=== PATIENT | male | born 1935 | race Caucasian/White ===

== ENCOUNTER → 2016-03-06 | Outpatient (CLI) | payer OTHER ==
[~2016-03-06] MED LIST: ACIDCAP17 PO; ALBU0.086 INH; ALPR-138 PO; ALUM5LIQ PO; AMLO5TAB96 PO; CLOP75 PO; DUONSOL2; FERR324T4 PO; FOLI20CA PO; FURO1TAB93 PO; LEXA10TA PO; LORT7.5T3 PO; MECL25 PO; POTA-243 PO; PRIL40CA PO; SENN15TA2 PO; SIMV20TA OR; SITA100 PO; TAB-TAB PO; TAMS0.4C67 PO; THIA50CA PO
[2016-03-06 13:00] LABS: BLOOD GAS CARBOXYHEMOGLOBIN 1.8 % (0-4); BLOOD GAS HCO3 30 mmol/L (22-26); BLOOD GAS METHEMOGLOBIN 0.9 % (0-2); BLOOD GAS O2 HGB SATURATION 92 % (90-100); BLOOD GAS OXYGEN CONTENT 17.7 Vol % (12.0-20.0); BLOOD GAS PCO2 49 mmHg (38-42); BLOOD GAS PO2 78 mmHg (61-120); BLOOD GAS TOTAL HGB 13.6 G/DL (12.0-16.0); CRITICAL VALUE NO; DRAW SITE RT RADIAL; FIO2 21 %; NUMBER OF ARTERIAL PUNCTURES 1; STAT NO; TEMP CORR TO 98.6; ULNAR PULSE PRESENT
--- NOTE | 2016-03-12 09:44 | RSPPFT ---
DATE OF PROCEDURE: 03/06/16 COMMENTS: Spirometry shows FVC of 1.6 at 40% of predicted, FEV1 of 1.0 at 43%, FEV1/FVC ratio is decreased. Flow is decreased at FEF 25, FEF 50, FEF 75, FEF 25-75. There is a mild response after acutely inhaled bronchodilator treatment. Lung volumes show residual volume is normal. TLC is decreased. Diffusion capacity is normal. Flow volume loop indicates an obstructive pattern. Room air arterial blood gases show pH of 7.40, PCO2 of 49, PO2 of 78, BiCarb of 30 and O2 Saturation at 92%. IMPRESSION: 1. Moderately severe obstructive lung disease. 2. Additional mild restrictive lung disease. 3. No response after bronchodilator treatment. 4. Lung volumes are decreased. 5. Diffusion capacity is decreased. 6. Room air arterial blood gases show normal oxygenation.
== END ==
LOC: HRSP 12:09
PROVIDERS: ATTEND Specialist
DX: J44.9 Chronic obstructive pulmonary disease, unspecified (principal)
CPT/HCPCS: 36600; 82805; 94060; 94726; 94729

== ENCOUNTER 2017-03-12 10:11 | Inpatient (IN) | payer OTHER, MEDICARE ==
[~2017-03-12] VITALS: Ht 182.9 cm; Wt 98.5 kg
[2017-03-12] VITALS (12 sets, daily range): BP systolic 109–190; BP diastolic 53–98; PULSE 71–104; RESP 14–19; TEMP 97.6–97.8; O2SAT 94–100
[~2017-03-12 10:11] MED LIST changes: -ACIDCAP17 PO; +ACIDOPHILUS PO
[2017-03-12 10:26] LABS: AUTOMATED NEUTROPHIL # 5.5 TH/MM3 (1.8-7.7); BASOPHIL # 0.1 TH/MM3 (0-0.2); EOSINOPHIL % 0.5 % (0.0-4.0); HEMATOCRIT 44.7 % (39.0-51.0); HEMOGLOBIN 14.4 GM/DL (13.0-17.0); LYMPH % 14.1 % (9.0-44.0); MEAN CELL VOLUME 92.2 FL (80.0-100.0); MEAN CORPUSCULAR HEMOGLOBIN 29.6 PG (27.0-34.0); MEAN CORPUSCULAR HGB CONC 32.1 % (32.0-36.0); MEAN PLATELET VOLUME 8.8 FL (7.0-11.0); MONO % 4.4 % (0.0-8.0); MONOCYTE # 0.3 TH/MM3 (0-0.9); PLATELET COUNT 139 TH/MM3 (150-450); RED BLOOD COUNT 4.84 MIL/MM3 (4.50-5.90); RED CELL DISTRIBUTION WIDTH 14.4 % (11.6-17.2); WHITE BLOOD COUNT 6.9 TH/MM3 (4.0-11.0)
[2017-03-12] MEDS ORDERED: TAMS0.4C4 PO (10:34)
[2017-03-12] MEDS ORDERED: CITA20TA4 PO (10:34)
[2017-03-12] MEDS ORDERED: PLAV75TA29 PO (10:34)
[2017-03-12] MEDS ORDERED: AMLO5TAB2 PO (10:34)
[2017-03-12 10:35] LABS: CHLORIDE 97 MEQ/L (98-107); SODIUM (NA) 135 MEQ/L (136-145)
[2017-03-12 10:39] LABS: CALCIUM 9.6 MG/DL (8.5-10.1); PROTHROMBIN TIME - PATIENT 10.4 SEC (9.8-11.6)
[2017-03-12 10:40] LABS: BICARBONATE 30.2 MEQ/L (21.0-32.0); BLOOD UREA NITROGEN 22 MG/DL (7-18); GLUCOSE,RANDOM 139 MG/DL (74-106)
[2017-03-12] MEDS ORDERED: HYDR-4361 PO (10:41)
[2017-03-12] MEDS ORDERED: AMOX500C PO (10:41)
[2017-03-12] MEDS ORDERED: OMEP40CA2 PO (10:41)
[2017-03-12] MEDS ORDERED: LIPI20TA PO (10:41)
[2017-03-12 10:43] LABS: ALT (GPT) 20 U/L (12-78); AST (GOT) 25 U/L (15-37)
[2017-03-12 10:44] LABS: GLOMERULAR FILTRATION RATE 28 ML/MIN (>89)
[2017-03-12 10:45] LABS: TOTAL BILIRUBIN ADULT 0.7 MG/DL (0.2-1.0); TOTAL PROTEIN 9.2 GM/DL (6.4-8.2)
[2017-03-12 10:46] LABS: ALKALINE PHOSPHATASE 137 U/L (45-117)
--- NOTE | 2017-03-12 10:46 | RADRPT ---
EXAM DATE/TIME: 03/12/2017 10:32 [facility] COMPARISON: No previous studies available for comparison. INDICATIONS : Altered mental status. Found unresponsive. RADIATION DOSE: 42.22 CTDIvol (mGy) MEDICAL HISTORY : Peripheral vascular disease. Chronic obstructive pulmonary disease. Congestive heart failure.Hyperten kian. Renal failure. SURGICAL HISTORY : None. ENCOUNTER: Initial ACUITY: 1 day PAIN SCALE: Non-responsive LOCATION: cranial TECHNIQUE: Multiple contiguous axial images were obtained of the head. Using automated exposure control and adj ustment of the mA and/or kV according to patient size, radiation dose was kept as low as reasonably a chievable to obtain optimal diagnostic quality images. DICOM format image data is available electro nically for review and comparison. FINDINGS: CEREBRUM: The ventricles are normal for age. No evidence of midline shift, mass lesion, hemorrhage or acute in farction. No extra-axial fluid collections are seen. There is microvascular ischemic demyelinization in deep white matter. POSTERIOR FOSSA: The cerebellum and brainstem are intact. The 4th ventricle is midline. The cerebellopontine angle i s unremarkable. EXTRACRANIAL: The visualized portion of the orbits is intact. Calcification is noted of the internal carotid arteri es in the siphon and vertebral arteries at the foramen. SKULL: The calvaria is intact. No evidence of skull fracture. CONCLUSION: No acute intracranial abnormality. Deep white matter microvascular ischemic demyelinizat ion and vascular calcifications appreciated Prashant Porter MD on March 12, 2017 at 10:42 Board Certified Radiologist. This report was verified electronically.
[2017-03-12 10:48] LABS: TROPONIN I LESS THAN 0.02 NG/ML (0.02-0.05)
[2017-03-12] MEDS ORDERED: BACL10TA PO (10:58)
--- NOTE | 2017-03-12 11:13 | EKG ---
Date Performed: 03/12/2017 Time Performed: 10:22:08 PTAGE: 81 years EKG: Normal Sinus rhythm WITH OCCASIONAL SUPRAVENTRICULAR PREMATURE COMPLEXES RIGHT BUNDLE BRANCH BLOCK LEFT ANTERIOR FASCICU LAR BLOCK LEFT VENTRICULAR HYPERTROPHY AND ST-T CHANGE ABNORMAL ECG No significant change from prior electrocardiogram. PREVIOUS TRACING : 08/29/2010 08.10 DOCTOR: Aureliano Paige Interpretating Date/Time 03/12/2017 11:11:21
[2017-03-12 11:21] LABS: BILIRUBIN, URINE SMALL (NEG); GLUCOSE,URINE NEG (NEG); KETONE, URINE TRACE mg/dL (NEG); NITRITE,URINE NEG (NEG); PH, URINE 5.5 (5.0-8.5); URINE LEUKOCYTE ESTERASE NEG (NEG)
--- NOTE | 2017-03-12 11:23 | PD ---
HPI Chief Complaint: Altered Mental Status Time Seen by Provider: 10:18 Travel History International Travel<30 days: No Contact w/Intl Traveler<30days: No Traveled to known affect area: No History of Present Illness HPI 81-year-old male presents with found down this morning by his friends that stayed the night with him. He was normal last night. He was given 2 doses of 0.4 mg of Narcan and awoke a little but was still not talking. Patient is nonverbal here currently in cannot provide me any history. History is significantly limited. PFSH Past Medical History Medical History: Unable to Obtain Hx Anticoagulant Therapy: Yes Anemia: Yes Arthritis: Yes Blood Disorders: Yes (THROMBOCYTOPENIA) Anxiety: Yes Cancer: Yes (YES BUT NOT SURE WHERE ???) Cardiovascular Problems: Yes (PERIPHERAL ARTERIAL DISEASE/PVD) High Cholesterol: Yes Congestive Heart Failure: Yes COPD: Yes Diabetes: Yes Patient Takes Glucophage: No Diminished Hearing: No Endocrine: Yes Gastrointestinal Disorders: Yes (GIBLEED) Genitourinary: Yes Hypertension: Yes Immune Disorder: No Implanted Vascular Access Dvce: Yes Musculoskeletal: Yes Neurologic: Yes Psychiatric: Yes Reproductive: No Respiratory: Yes Integumentary: Yes ( L FOOT ULCER) Immunizations Current: No Renal Failure: Yes (CHRONIC) Tetanus Vaccination: Unknown ?: Not Past Surgical History Surgical History: Unable to Obtain Body Medical Devices: STENT L EXTERNAL ILIAC Cardiac Surgery: Yes Eye Surgery: Yes Genitourinary Surgery: Yes (TESTICLE) Other Surgery: Yes (08/29/2010-L EXT ILIAC ARTERY STENT-L/SFA AND ANTERIOR TIBIAL ANGIOPLASTY ) Social History Alcohol Use: Yes (Occ - Beer) Tobacco Use: No Substance Use: No Allergies-Medications (Allergen,Severity, Reaction): Coded Allergies: No Known Allergies (Verified , 10/30/10) Reported Meds & Prescriptions Reported Meds & Active Scripts Active Reported Baclofen 10 Mg Tab 10 Mg PO Q8HR Amoxicillin 500 Mg Cap 500 PO BID Hydrocodone-Acetamin 10-300 mg (Hydrocodone/Acetaminophen) 10 Mg-300 Mg Tablet 10 Mg PO DAILY Omeprazole 40 Mg Cap 40 Mg PO DAILY Lipitor (Atorvastatin Calcium) 20 Mg Tab 20 Mg PO HS Citalopram (Citalopram Hydrobromide) 20 Mg Tab 20 Mg PO DAILY Plavix (Clopidogrel Bisulfate) 75 Mg Tab 75 Mg PO DAILY Tamsulosin (Tamsulosin HCl) 0.4 Mg Cap 0.4 Mg PO HS Amlodipine (Amlodipine Besylate) 5 Mg Tab 5 Mg PO DAILY Review of Systems ROS Limitations: Altered Mental Status Physical Exam Exam Limitations: Altered Mental Status Narrative GENERAL: Well-nourished, well-developed patient. SKIN: Warm and dry. HEAD: Normocephalic and atraumatic. EYES: No injection or drainage. Right pupil pinpoint, left pupil postsurgical ENT: No nasal drainage noted. NECK: Supple, trachea midline. CARDIOVASCULAR: Regular rate and rhythm RESPIRATORY: Breath sounds equal bilaterally. No accessory muscle use. GASTROINTESTINAL: Abdomen nondistended. NEUROLOGICAL: The patient opens eyes to pain, moves extremities to pain, nonverbal Data Data Last Documented VS Vital Signs Date Time Temp Pulse Resp B/P (MAP) Pulse Ox O2 Delivery O2 Flow Rate FiO2 03/12/17 10:42 87 18 149/86 (107) 98 Nasal Cannula 2.00 03/12/17 10:16 97.8 Orders Orders Blood Glucose (03/12/17 10:14) Oximetry (03/12/17 10:14) Iv Access Insert/Monitor (03/12/17 10:14) Ecg Monitoring (03/12/17 10:14) Oxygen Administration (03/12/17 10:14) Complete Blood Count With Diff (03/12/17 10:14) Comprehensive Metabolic Panel (03/12/17 10:14) Troponin I (03/12/17 10:14) Electrocardiogram (03/12/17 ) Urinalysis - C+S If Indicated (03/12/17 10:14) Drug Screen, Random Urine (03/12/17 10:14) Prothrombin Time / Inr (Pt) (03/12/17 10:14) Act Partial Throm Time (Ptt) (03/12/17 10:14) Ct Brain W/O Iv Contrast(Rout) (03/12/17 ) Alcohol (Ethanol) (03/12/17 10:18) Tylenol (Acetaminophen) (03/12/17 10:36) Sodium Chlorid 0.9% 500 Ml Inj (Ns 500 M (03/12/17 11:30) Naloxone Inj (Narcan Inj) (03/12/17 13:00) Sodium Chlorid 0.9% 500 Ml Inj (Ns 500 M (03/12/17 13:00) Arterial Blood Gas (Abg) (03/12/17 ) Chest, Single Ap (03/12/17 ) Admit Order (Ed Use Only) (03/12/17 13:03) Labs Laboratory Tests Test 03/12/17 10:15 03/12/17 11:05 White Blood Count 6.9 TH/MM3 Red Blood Count 4.84 MIL/MM3 Hemoglobin 14.4 GM/DL Hematocrit 44.7 % Mean Corpuscular Volume 92.2 FL Mean Corpuscular Hemoglobin 29.6 PG Mean Corpuscular Hemoglobin Concent 32.1 % Red Cell Distribution Width 14.4 % Platelet Count 139 TH/MM3 Mean Platelet Volume 8.8 FL Neutrophils (%) (Auto) 80.0 % Lymphocytes (%) (Auto) 14.1 % Monocytes (%) (Auto) 4.4 % Eosinophils (%) (Auto) 0.5 % Basophils (%) (Auto) 1.0 % Neutrophils # (Auto) 5.5 TH/MM3 Lymphocytes # (Auto) 1.0 TH/MM3 Monocytes # (Auto) 0.3 TH/MM3 Eosinophils # (Auto) 0.0 TH/MM3 Basophils # (Auto) 0.1 TH/MM3 CBC Comment DIFF FINAL Differential Comment Prothrombin Time 10.4 SEC Prothromb Time International Ratio 1.0 RATIO Activated Partial Thromboplast Time 24.1 SEC Blood Urea Nitrogen 22 MG/DL Creatinine 2.30 MG/DL Random Glucose 139 MG/DL Total Protein 9.2 GM/DL Albumin 4.0 GM/DL Calcium Level 9.6 MG/DL Alkaline Phosphatase 137 U/L Aspartate Amino Transf (AST/SGOT) 25 U/L Alanine Aminotransferase (ALT/SGPT) 20 U/L Total Bilirubin 0.7 MG/DL Sodium Level 135 MEQ/L Potassium Level 4.4 MEQ/L Chloride Level 97 MEQ/L Carbon Dioxide Level 30.2 MEQ/L Anion Gap 8 MEQ/L Estimat Glomerular Filtration Rate 28 ML/MIN Troponin I LESS THAN 0.02 NG/ML Acetaminophen Level LESS THAN 2.0 MCG/ML Ethyl Alcohol Level LESS THAN 3 MG/DL Urine Collection Type CATH Urine Color YELLOW Urine Turbidity CLEAR Urine pH 5.5 Urine Specific Emmet 1.022 Urine Protein 100 mg/dL Urine Glucose (UA) NEG mg/dL Urine Ketones TRACE mg/dL Urine Occult Blood TRACE Urine Nitrite NEG Urine Bilirubin SMALL Urine Leukocyte Esterase NEG Urine RBC 4-9 /hpf Urine WBC 0-2 /hpf Urine Transitional Epithelial Cells 0-5 /hpf Urine Amorphous Sediment FEW Microscopic Urinalysis Comment CATH-CULT NOT IND Urine Collection Time 11:05 Urine Opiates Screen POS Urine Barbiturates Screen NEG Urine Amphetamines Screen NEG Urine Benzodiazepines Screen NEG Urine Cocaine Screen NEG Urine Cannabinoids Screen NEG MDM Medical Decision Making Medical Screen Exam Complete: Yes Emergency Medical Condition: Yes Medical Record Reviewed: Yes (past history confirmed) Interpretation(s) CBC & BMP Diagram 03/12/17 10:15 Total Protein 9.2 H, Albumin 4.0, Calcium Level 9.6, Alkaline Phosphatase 137 H , Aspartate Amino Transf (AST/SGOT) 25, Alanine Aminotransferase (ALT/SGPT) 20, Total Bilirubin 0.7 Last [address] 03/12/17 0000 Signed Impressions: Service Date/Time: Sunday, March 12, 2017 10:32 - CONCLUSION: No acute intracranial abnormality. Deep white matter microvascular ischemic demyelinization and vascular calcifications appreciated Prashant Porter MD Last [address] 03/12/17 0000 Signed Impressions: Service Date/Time: Sunday, March 12, 2017 10:32 - CONCLUSION: No acute intracranial abnormality. Deep white matter microvascular ischemic demyelinization and vascular calcifications appreciated Prashant Porter MD Chest X-Ray 03/12/17 0000 Signed Impressions: Service Date/Time: Sunday, March 12, 2017 13:01 - CONCLUSION: 1. Probable CHF. Harris Avalos MD Differential Diagnosis Narcotic overdose, brain bleed, electrolyte abnormality, UTI Narrative Course took patient on monitor to CT scan and on way patient started to wake up and stated his name. CT brain showed no acute bleed. We will closely monitor blood work, urinalysis and he will need admission to the hospital for likely over medication of narcotics. After 2-1/2 hours patient started to have decline in his mental status again. Was given Narcan with only minimal improvement. ABG showed elevated CO2 with pH is 7.33. We'll try BiPAP. After 15 minutes BiPAP was removed and patient was reassessed. He is a GCS of 14. He is able to tell me his last name. We will replace BiPAP and dose with DuoNeb's and Solu-Medrol and continue to monitor closely in the ICU Repeat ABG shows improved CO2 but O2 has decreased. We will increase oxygen settings and monitor closely in the ICU with BiPAP Physician Communication Physician Communication dr coats requests abg, chest xray and to call back dr coats agrees to admit dr coats given update at bedside Diagnosis Primary Impression: Altered mental status Qualified Codes: R41.82 - Altered mental status, unspecified Additional Impressions: Narcotic overdose Qualified Codes: T40.604A - Poisoning by unspecified narcotics, undetermined, initial encounter Renal insufficiency CO2 narcosis COPD exacerbation Admitting Information Admitting Physician Requests: Admit Ese Shaw MD Mar 12, 2017 11:23
[2017-03-12 11:27] LABS: BLOOD, URINE TRACE (NEG)
[2017-03-12 11:29] LABS: AMORPHOUS SEDIMENT, URINE FEW; TRANSITIONAL EPI CELLS, URINE 0-5 /hpf; URINE COLOR YELLOW (YELLW/STRAW); WBC, URINE 0-2 /hpf (0-5)
[2017-03-12] MEDS ORDERED: SODIUM CHLORID 0.9% 500 ML INJ 500 ML IV ONE ×2 (11:30→13:00)
[2017-03-12] MEDS ORDERED: NALOXONE HCL 0.4 MG/ML AMP IV PUSH ONE ×3 (13:00→13:15)
--- NOTE | 2017-03-12 13:15 | RADRPT ---
EXAM DATE/TIME: 03/12/2017 13:01 [facility] COMPARISON: No previous studies available for comparison. INDICATIONS : Short of breath. MEDICAL HISTORY : Chronic obstructive pulmonary disease. Congestive heart failure. Diabetes mellitus type II. hyper tension, thrombocytopenia SURGICAL HISTORY : unobtainable ENCOUNTER: Initial ACUITY: 1 day PAIN SCORE: Non-responsive. LOCATION: Bilateral chest FINDINGS: The heart is enlarged. There are bilateral pleural effusions. There is dependent atelectasis. There i s mild diffuse interstitial prominence most consistent with interstitial edema. The visualized osseous structures are grossly intact. CONCLUSION: 1. Probable CHF. Harris Avalos MD on March 12, 2017 at 13:11 Board Certified Radiologist. This report was verified electronically.
[2017-03-12] MEDS ORDERED: methylPREDNISolone SOD SUCC 125 MG/2 ML VIAL IV PUSH ONE (14:45)
[2017-03-12] MEDS: RESP: ALBUTEROL 2.5 MG/IPRATROPIUM 0.5 MG NEB (SCH) INH ×2 (14:46→19:38)
--- NOTE | 2017-03-12 17:17 | HHI.HP ---
[facility] Service Critical Care Medicine Primary Care Physician Meri Reaves MD Admission Diagnosis altered mental status Diagnosis: (1) Acute respiratory failure with hypoxia and hypercapnia Diagnosis: Principal (2) Acute renal failure superimposed on stage 2 chronic kidney disease Diagnosis: Principal (3) Altered mental status Diagnosis: Principal Chief Complaint: Altered mental status Travel History International Travel<30 Days: No Contact w/Intl Traveler <30 Da: No Traveled to Known Affected Are: No History of Present Illness Is a 81 year-old male with severe altered mental status, obtundation and cannot give any information at all. Information was taken from medical records which appears to be dating back to 2010. Records indicate that he does have diabetes, anemia, peripheral artery disease, hyperlipidemia, chronic obstructive pulmonary disease, hypertension, history GI bleed, chronic kidney disease, enlarged prostate. All information from the ER physician indicates the patient was found down this morning and was unresponsive. He was acting normal last night. Patient was given a few doses of Narcan in the emergency department with little response. ER physician indicates that the patient was having waxing and waning of his mental status. He would sit up and we'll communicate minimally. However when I saw the patient he was given slightly unresponsive, he would not respond or talk. minimal respond to painful stimuli. ER physician planning on placing the patient on BiPAP for respiratory support. Abnormal findings on workup show acute renal failure on chronic kidney disease, chest x-ray shows probable CHF. Drug screen does show positive opiates. Otherwise workup is unremarkable. Review of Systems ROS Limitations: Clinical Condition Past Family Social History Allergies: Coded Allergies: No Known Allergies (Verified Allergy, Unknown, 03/12/17) Past Medical History Information taken from medical records Hypertension Hyperlipidemia Chronic kidney disease stage II Anemia Thrombocytopenia Peripheral arterial disease Chronic obstructive pulmonary disease History GI bleed Diabetes Obesity Prostate enlargement Past Surgical History Stent in left external iliac artery Anterior tibial angioplasty Thoracentesis Endoscopy Hernia repair Reported Medications Reported Meds & Active Scripts Active Reported Baclofen 10 Mg Tab 10 Mg PO Q8HR Amoxicillin 500 Mg Cap 500 PO BID Hydrocodone-Acetamin 10-300 mg (Hydrocodone/Acetaminophen) 10 Mg-300 Mg Tablet 10 Mg PO DAILY Omeprazole 40 Mg Cap 40 Mg PO DAILY Lipitor (Atorvastatin Calcium) 20 Mg Tab 20 Mg PO HS Citalopram (Citalopram Hydrobromide) 20 Mg Tab 20 Mg PO DAILY Plavix (Clopidogrel Bisulfate) 75 Mg Tab 75 Mg PO DAILY Tamsulosin (Tamsulosin HCl) 0.4 Mg Cap 0.4 Mg PO HS Amlodipine (Amlodipine Besylate) 5 Mg Tab 5 Mg PO DAILY Family History Records indicate that mother from cervical cancer at age 36, father from myocardial infarction age 56 Social History Records indicate that he does not smoke any tobacco or use any illicit drugs. There is indication of 2 beers daily Physical Exam Vital Signs Vital Signs Date Time Temp Pulse Resp B/P (MAP) Pulse Ox O2 Delivery O2 Flow Rate FiO2 03/12/17 16:40 78 166/86 (112) 99 BiPAP 03/12/17 15:09 86 18 145/70 (95) 96 BiPAP 03/12/17 15:06 95 BiPAP 03/12/17 14:05 94 28 03/12/17 13:53 104 19 175/85 (115) 94 Room Air 03/12/17 13:04 77 18 109/53 (71) 99 Nasal Cannula 2.00 03/12/17 10:42 87 18 149/86 (107) 98 Nasal Cannula 2.00 03/12/17 10:24 99 Nasal Cannula 2.00 03/12/17 10:20 99 Nasal Cannula 2.00 03/12/17 10:16 97.8 84 18 190/98 (128) 99 Physical Exam GENERAL: Well-developed, well-nourished, in no acute distress. Patient is obtunded, unable to obtain any information the patient will require any alertness. Patient would not respond to painful stimuli HEENT: Head is normocephalic without any lesions or masses noted. Facial features are symmetric. Eyes: Pupils equal round reactive to light patient does not track with his eyes. Conjunctivae were clear. NECK: Supple without any masses. Trachea midline no deviation. No JVD, no bruits are appreciated CARDIAC: Regular rhythm, regular rate. S1/S2 are heard. No murmurs gallops or rubs. LUNGS: Clear to auscultation bilaterally. No wheeze, rhonchi or rales. No use of accessory muscles on inspiration or expiration. ABDOMEN: Soft, nontender. Nondistended. Bowel sounds heard in all 4 quadrants. No organomegaly or masses. Negative rebound, negative guarding EXTREMITIES: No edema, pulses are equal bilaterally. No cyanosis or clubbing NEUROLOGY: Patient does have intact deep tendon reflexes in the lower extremity. Plantar reflex is intact. Unable to determine mood and affect due to patient's mentation Laboratory Laboratory Tests Test 03/12/17 10:15 03/12/17 11:05 03/12/17 13:08 03/12/17 13:25 White Blood Count 6.9 Red Blood Count 4.84 Hemoglobin 14.4 Hematocrit 44.7 Mean Corpuscular Volume 92.2 Mean Corpuscular Hemoglobin 29.6 Mean Corpuscular Hemoglobin Concent 32.1 Red Cell Distribution Width 14.4 Platelet Count 139 Mean Platelet Volume 8.8 Neutrophils (%) (Auto) 80.0 Lymphocytes (%) (Auto) 14.1 Monocytes (%) (Auto) 4.4 Eosinophils (%) (Auto) 0.5 Basophils (%) (Auto) 1.0 Neutrophils # (Auto) 5.5 Lymphocytes # (Auto) 1.0 Monocytes # (Auto) 0.3 Eosinophils # (Auto) 0.0 Basophils # (Auto) 0.1 CBC Comment DIFF FINAL Differential Comment Prothrombin Time 10.4 Prothromb Time International Ratio 1.0 Activated Partial Thromboplast Time 24.1 Blood Urea Nitrogen 22 Creatinine 2.30 Random Glucose 139 Total Protein 9.2 Albumin 4.0 Calcium Level 9.6 Alkaline Phosphatase 137 Aspartate Amino Transf (AST/SGOT) 25 Alanine Aminotransferase (ALT/SGPT) 20 Total Bilirubin 0.7 Sodium Level 135 Potassium Level 4.4 Chloride Level 97 Carbon Dioxide Level 30.2 Anion Gap 8 Estimat Glomerular Filtration Rate 28 Troponin I LESS THAN 0.02 Acetaminophen Level LESS THAN 2.0 Ethyl Alcohol Level LESS THAN 3 Urine Collection Type CATH Urine Color YELLOW Urine Turbidity CLEAR Urine pH 5.5 Urine Specific [place] 1.022 Urine Protein 100 Urine Glucose (UA) NEG Urine Ketones TRACE Urine Occult Blood TRACE Urine Nitrite NEG Urine Bilirubin SMALL Urine Leukocyte Esterase NEG Urine RBC 4-9 Urine WBC 0-2 Urine Transitional Epithelial Cells 0-5 Urine Amorphous Sediment FEW Microscopic Urinalysis Comment CATH-CULT NOT IND Urine Collection Time 11:05 Urine Opiates Screen POS Urine Barbiturates Screen NEG Urine Amphetamines Screen NEG Urine Benzodiazepines Screen NEG Urine Cocaine Screen NEG Urine Cannabinoids Screen NEG Blood Gas Puncture Site RT RADIAL Blood Gas Patient Temperature 98.6 Blood Gas HCO3 30 Blood Gas Base Excess 4.2 Blood Gas Oxygen Saturation 95 Arterial Blood pH 7.33 Arterial Blood Partial Pressure CO2 59 Arterial Blood Partial Pressure O2 95 Arterial Blood Oxygen Content 16.0 Arterial Blood Carboxyhemoglobin 1.8 Arterial Blood Methemoglobin 1.0 Blood Gas Hemoglobin 11.9 Oxygen Delivery Device NASAL CANNULA Blood Gas Liter Flow 2 B-Type Natriuretic Peptide 35 Test 03/12/17 14:00 03/12/17 15:49 Ammonia 15 Blood Gas Puncture Site LT RADIAL Blood Gas Patient Temperature 37.0 Blood Gas HCO3 28 Blood Gas Base Excess 3.3 Blood Gas Oxygen Saturation 86 Arterial Blood pH 7.38 Arterial Blood Partial Pressure CO2 49 Arterial Blood Partial Pressure O2 55 Arterial Blood Oxygen Content 14.0 Arterial Blood Carboxyhemoglobin 1.7 Arterial Blood Methemoglobin 0.9 Blood Gas Hemoglobin 11.6 Oxygen Delivery Device BIPAP Blood Gas Ventilator Setting IPAP 18/EPAP 5 Blood Gas Inspired Oxygen 21 Result Diagram: 03/12/17 1015 03/12/17 1015 Imaging Last Impressions Head CT 03/12/17 0000 Signed Impressions: Service Date/Time: Sunday, March 12, 2017 10:32 - CONCLUSION: No acute intracranial abnormality. Deep white matter microvascular ischemic demyelinization and vascular calcifications appreciated Prashant Porter MD Chest X-Ray 03/12/17 0000 Signed Impressions: Service Date/Time: Sunday, March 12, 2017 13:01 - CONCLUSION: 1. Probable CHF. Harris Avalos MD Septic Shock Reassessment Septic shock perfusion: reassessment completed Caprini VTE Risk Assessment Caprini VTE Risk Assessment: Mod/High Risk (score >= 2) Caprini Risk Assessment Model Point Value = 1 Point Value = 2 Point Value = 3 Point Value = 5 Age 41-60 Minor surgery BMI > 25 kg/m2 Swollen legs Varicose veins or History of unexplained or recurrent spontaneous Oral contraceptives or hormone replacement Sepsis (< 1 month) Serious lung disease, including pneumonia (< 1 month) Abnormal pulmonary function Acute myocardial infarction Congestive heart failure (< 1 month) History of inflammatory bowel disease Medical patient at bed rest Age 61-74 Arthroscopic surgery Major open surgery (> 45 min) Laparoscopic surgery (> 45 min) Malignancy Confined to bed (> 72 hours) Immobilizing plaster cast Central venous access Age >= 75 History of VTE Family history of VTE Factor V Leiden Prothrombin [id number] Lupus anticoagulant Anticardiolipin antibodies Elevated serum homocysteine Heparin-induced thrombocytopenia Other congenital or acquired thrombophilia Stroke (< 1 month) Elective arthroplasty Hip, pelvis, or leg fracture Acute spinal cord injury (< 1 month) Prophylaxis Regimen Total Risk Factor Score Risk Level Prophylaxis Regimen 0-1 Low Early ambulation 2 Moderate Order ONE of the following: *Sequential Compression Device (SCD) *Heparin 5000 units SQ BID 3-4 Higher Order ONE of the following medications: *Heparin 5000 units SQ TID *Enoxaparin/Lovenox 40 mg SQ daily (WT < 150 kg, CrCl > 30 mL/min) *Enoxaparin/Lovenox 30 mg SQ daily (WT < 150 kg, CrCl > 10-29 mL/min) *Enoxaparin/Lovenox 30 mg SQ BID (WT < 150 kg, CrCl > 30 mL/min) AND/OR *Sequential Compression Device (SCD) 5 or more Highest Order ONE of the following medications: *Heparin 5000 units SQ TID (Preferred with Epidurals) *Enoxaparin/Lovenox 40 mg SQ daily (WT < 150 kg, CrCl > 30 mL/min) *Enoxaparin/Lovenox 30 mg SQ daily (WT < 150 kg, CrCl > 10-29 mL/min) *Enoxaparin/Lovenox 30 mg SQ BID (WT < 150 kg, CrCl > 30 mL/min) AND *Sequential Compression Device (SCD) Assessment and Plan Problem List: (1) Altered mental status ICD Code: R41.82 - Altered mental status, unspecified Status: Acute (2) Acute respiratory failure with hypoxia and hypercapnia ICD Code: J96.01 - Acute respiratory failure with hypoxia; J96.02 - Acute respiratory failure with hypercapnia (3) Acute renal failure superimposed on stage 2 chronic kidney disease ICD Code: N17.9 - Acute kidney failure, unspecified; N18.2 - Chronic kidney disease, stage 2 (mild) Assessment and Plan NEUROLOGY Patient with significant altered mental status, obtundation Continue monitor neurological function Patient with minimal response to Narcan, may want to consider Narcan drip CT the brain does not indicate any acute abnormality Ammonia level was normal Blood gases indicate CO2 level of 59 which did not significantly elevated for CO2 narcosis Will need further neurological workup with laboratory studies, possible MRI of the brain, neurological consult, EEG PULMONARY Acute hypoxic/hypercapnic respiratory failure Chronic obstructive pulmonary disease Patient on BiPAP at this time 18/5/21% Obtain repeat ABG May need to intubate patient for airway support Duo nebs every 6 hours and every 2 hours as needed CARDIOLOGY History of hypertension, hyperlipidemia Blood pressure stable this time When necessary blood pressure medication to include labetalol, Apresoline GASTROENTEROLOGY Will get speech therapy evaluation We'll keep nothing by mouth this time due to patient's mental status Pepcid IV GENITOURINARY Acute renal failure superimposed on chronic kidney disease stage II Continue IV fluids Monitor renal function Avoid nephrotoxins INFECTIOUS DISEASE No clinical signs of infection this time We'll check blood cultures, Urinalysis does not indicate any acute abnormality ENDOCRINOLOGY The monitor glucoses start sliding scale insulin if needed Check TSH HEMATOLOGY Monitor hemoglobin and transfuse if less than 7.0 PROPHYLAXIS DVT prevention with sequential compression devices GI protection with Pepcid LINES Peripheral IVs next line Critical care time 60 minutes excluding procedures Patient seen and examined agree with above assessment and plan. Will check ABG if there is any worsening in resp status or clinical condition will proceed with intubation and mechanical ventilation. Problem Qualifiers (1) Altered mental status: Qualified Codes: R41.82 - Altered mental status, unspecified Thiago Mcdaniel Mar 12, 2017 17:17 Yony Atkinson MD Mar 12, 2017 17:35
[2017-03-12] MEDS ORDERED: ONDANSETRON HCL 4 MG/2 ML VIAL IV PUSH PRN (17:30)
[2017-03-12] MEDS ORDERED: DEXTROSE 50% IN WATER 50 ML VIAL(D50) IV PUSH PRN (17:30)
[2017-03-12] MEDS ORDERED: CHLORHEXIDINE GLUCONATE 2 % 1 PACK (2 CLOTHS) TOP PRN (17:30)
[2017-03-12] MEDS ORDERED: GLUCAGON 1 MG/ML VIAL OTHER PRN (17:30)
[2017-03-12] MEDS ORDERED: MAGNESIUM HYDROXIDE SUSP 30 ML CUP PO PRN (17:30)
[2017-03-12] MEDS ORDERED: RESP: ALBUTEROL 2.5 MG/IPRATROPIUM 0.5 MG NEB (PRN) INH (17:30)
[2017-03-12] MEDS ORDERED: LACTULOSE SYRUP 20 GM/30 ML CUP PO PRN (17:30)
[2017-03-12] MEDS ORDERED: hydrALAZINE HCL 20 MG/ML VIAL IV PUSH PRN (17:30)
[2017-03-12] MEDS ORDERED: SODIUM CHLORIDE 0.9% FLUSH 10 ML FLUSH IV FLUSH PRN (17:30)
[2017-03-12] MEDS ORDERED: MISCELLANEOUS NURSING INFORMATION XX SCH (17:30)
[2017-03-12] MEDS ORDERED: BISACODYL 10 MG SUPP RECTAL PRN (17:30)
[2017-03-12] MEDS ORDERED: LABETALOL HCL 100 MG/20 ML VIAL IV PUSH PRN (17:30)
[2017-03-12] MEDS ORDERED: SENNOSIDES 8.6 MG TAB PO PRN (17:30)
[2017-03-12] MEDS: FAMOTIDINE 20 MG/2 ML VIAL IV PUSH SCH (21:00)
[2017-03-12] MEDS: DOCUSATE SODIUM 50 MG/SENNA 8.6 MG TAB PO SCH (21:00)
[2017-03-12] MEDS: INSULIN ASPART SUPPLEMENTAL SCALE SQ SCH (21:00)
[2017-03-13] VITALS (13 sets, daily range): BP systolic 95–169; BP diastolic 50–89; PULSE 76–99; RESP 14–39; TEMP 97.2–98.6; O2SAT 96–100
[2017-03-13 01:35] LABS: FOLATE 12.2 NG/ML (3.1-17.5); TROPONIN I LESS THAN 0.02 NG/ML (0.02-0.05)
[2017-03-13] MEDS ORDERED: FUROSEMIDE 40 MG/4 ML VIAL ONE ×2 (02:56)
[2017-03-13] MEDS ORDERED: FUROSEMIDE 100 MG/10 ML VIAL IV PUSH ONE (03:00)
[2017-03-13] MEDS: SODIUM CHLORIDE 0.9% FLUSH 10 ML FLUSH IV FLUSH SCH ×3 (03:06→21:30)
[2017-03-13] MEDS: CHLORHEXIDINE GLUCONATE 2 % 1 PACK (2 CLOTHS) TOP SCH (03:06)
[2017-03-13] MEDS ORDERED: LORazepam 2 MG/ML VIAL ONE (03:09)
[2017-03-13] MEDS ORDERED: LORazepam 2 MG/ML VIAL IV ONE (03:15)
[2017-03-13 03:57] LABS: AUTOMATED NEUTROPHIL # 2.9 TH/MM3 (1.8-7.7); BASOPHIL % 0.1 % (0.0-2.0); HEMATOCRIT 38.5 % (39.0-51.0); HEMOGLOBIN 12.6 GM/DL (13.0-17.0); LYMPH % 10.3 % (9.0-44.0); LYMPHOCYTE # 0.3 TH/MM3 (1.0-4.8); MEAN CELL VOLUME 90.6 FL (80.0-100.0); MEAN CORPUSCULAR HEMOGLOBIN 29.6 PG (27.0-34.0); MEAN CORPUSCULAR HGB CONC 32.7 % (32.0-36.0); MEAN PLATELET VOLUME 9.8 FL (7.0-11.0); MONO % 0.9 % (0.0-8.0); NEUT % 88.7 % (16.0-70.0); PLATELET COUNT 139 TH/MM3 (150-450); RED BLOOD COUNT 4.25 MIL/MM3 (4.50-5.90); RED CELL DISTRIBUTION WIDTH 13.8 % (11.6-17.2); WHITE BLOOD COUNT 3.2 TH/MM3 (4.0-11.0)
[2017-03-13 04:42] LABS: ALBUMIN 3.1 GM/DL (3.4-5.0); BICARBONATE 29.1 MEQ/L (21.0-32.0); BLOOD UREA NITROGEN 21 MG/DL (7-18); CALCIUM 8.9 MG/DL (8.5-10.1); CHLORIDE 101 MEQ/L (98-107); CREATININE 1.58 MG/DL (0.60-1.30); GLOMERULAR FILTRATION RATE 43 ML/MIN (>89); GLUCOSE,RANDOM 159 MG/DL (74-106); MAGNESIUM 1.9 MG/DL (1.5-2.5); SODIUM (NA) 138 MEQ/L (136-145)
[2017-03-13 04:44] LABS: ALT (GPT) 18 U/L (12-78); PHOSPHORUS 3.4 MG/DL (2.5-4.9)
[2017-03-13 05:01] LABS: ALKALINE PHOSPHATASE 113 U/L (45-117); AST (GOT) 20 U/L (15-37); TOTAL BILIRUBIN ADULT 0.4 MG/DL (0.2-1.0); TOTAL PROTEIN 7.7 GM/DL (6.4-8.2)
[2017-03-13] MEDS: INSULIN ASPART SUPPLEMENTAL SCALE SQ SCH ×4 (08:00→21:30)
[2017-03-13] MEDS: RESP: ALBUTEROL 2.5 MG/IPRATROPIUM 0.5 MG NEB (SCH) INH ×3 (08:20→19:57)
[2017-03-13] MEDS: DOCUSATE SODIUM 50 MG/SENNA 8.6 MG TAB PO SCH ×2 (09:00→21:31)
--- NOTE | 2017-03-13 11:09 | HHI.CCPN ---
Subjective Remarks/Hospital Course Is a 81 year-old male with severe altered mental status, obtundation and cannot give any information at all. Information was taken from medical records which appears to be dating back to 2010. Records indicate that he does have diabetes, anemia, peripheral artery disease, hyperlipidemia, chronic obstructive pulmonary disease, hypertension, history GI bleed, chronic kidney disease, enlarged prostate. All information from the ER physician indicates the patient was found down this morning and was unresponsive. He was acting normal last night. Patient was given a few doses of Narcan in the emergency department with little response. ER physician indicates that the patient was having waxing and waning of his mental status. He would sit up and we'll communicate minimally. However when I saw the patient he was given slightly unresponsive, he would not respond or talk. minimal respond to painful stimuli. ER physician planning on placing the patient on BiPAP for respiratory support. Abnormal findings on workup show acute renal failure on chronic kidney disease, chest x-ray shows probable CHF. Drug screen does show positive opiates. Otherwise workup is unremarkable. 03/13 Patient is lying in bed in NAD. On 2L oxygen Objective Vital Signs Date Time Temp Pulse Resp B/P (MAP) Pulse Ox O2 Delivery O2 Flow Rate FiO2 03/13/17 08:20 98 Nasal Cannula 2.00 03/13/17 08:00 97.5 76 23 128/74 (92) 03/13/17 03:40 50 Intake and Output 03/13/17 03/13/17 03/14/17 08:00 16:00 00:00 Output Total 1550 ml Balance -1550 ml Result Diagram: 03/13/17 0347 03/13/17 0347 Other Results Laboratory Tests Test 03/12/17 11:05 03/12/17 13:08 03/12/17 13:25 03/12/17 14:00 Urine Collection Type CATH Urine Color YELLOW Urine Turbidity CLEAR Urine pH 5.5 Urine Specific [place] 1.022 Urine Protein 100 mg/dL Urine Glucose (UA) NEG mg/dL Urine Ketones TRACE mg/dL Urine Occult Blood TRACE Urine Nitrite NEG Urine Bilirubin SMALL Urine Leukocyte Esterase NEG Urine RBC 4-9 /hpf Urine WBC 0-2 /hpf Urine Transitional Epithelial Cells 0-5 /hpf Urine Amorphous Sediment FEW Microscopic Urinalysis Comment CATH-CULT NOT IND Urine Collection Time 11:05 Urine Opiates Screen POS Urine Barbiturates Screen NEG Urine Amphetamines Screen NEG Urine Benzodiazepines Screen NEG Urine Cocaine Screen NEG Urine Cannabinoids Screen NEG Blood Gas Puncture Site RT RADIAL Blood Gas Patient Temperature 98.6 Blood Gas HCO3 30 mmol/L Blood Gas Base Excess 4.2 mmol/L Blood Gas Oxygen Saturation 95 % Arterial Blood pH 7.33 Arterial Blood Partial Pressure CO2 59 mmHG Arterial Blood Partial Pressure O2 95 mmHG Arterial Blood Oxygen Content 16.0 Vol % Arterial Blood Carboxyhemoglobin 1.8 % Arterial Blood Methemoglobin 1.0 % Blood Gas Hemoglobin 11.9 G/DL Oxygen Delivery Device NASAL CANNULA Blood Gas Liter Flow 2 L/M B-Type Natriuretic Peptide 35 PG/ML Ammonia 15 MCMOL/L Test 03/12/17 15:49 03/12/17 17:35 03/12/17 18:36 03/12/17 18:40 Blood Gas Puncture Site LT RADIAL RT RADIAL Blood Gas Patient Temperature 37.0 98.6 Blood Gas HCO3 28 mmol/L 26 mmol/L Blood Gas Base Excess 3.3 mmol/L 0.8 mmol/L Blood Gas Oxygen Saturation 86 % 92 % Arterial Blood pH 7.38 7.32 Arterial Blood Partial Pressure CO2 49 mmHg 52 mmHg Arterial Blood Partial Pressure O2 55 mmHg 83 mmHg Arterial Blood Oxygen Content 14.0 Vol % 16.2 Vol % Arterial Blood Carboxyhemoglobin 1.7 % 1.3 % Arterial Blood Methemoglobin 0.9 % 1.1 % Blood Gas Hemoglobin 11.6 G/DL 12.4 G/DL Oxygen Delivery Device BIPAP BiPAP Blood Gas Ventilator Setting IPAP 18/EPAP 5 IPAP 18, EPAP 8 Blood Gas Inspired Oxygen 21 % 50 % Nasal Screen MRSA (PCR) MRSA DETECTED Erythrocyte Sedimentation Rate 57 mm/hr Troponin I 0.02 NG/ML Test 03/13/17 00:22 03/13/17 02:39 03/13/17 03:47 Troponin I LESS THAN 0.02 NG/ML Vitamin B12 Level 378 PG/ML Folate 12.2 NG/ML Thyroid Stimulating Hormone 3rd Gen 0.414 uIU/ML Blood Gas Puncture Site RT RADIAL Blood Gas Patient Temperature 98.6 Blood Gas HCO3 28 mmol/L Blood Gas Base Excess 3.1 mmol/L Blood Gas Oxygen Saturation 94 % Arterial Blood pH 7.37 Arterial Blood Partial Pressure CO2 49 mmHg Arterial Blood Partial Pressure O2 89 mmHg Arterial Blood Oxygen Content 18.4 Vol % Arterial Blood Carboxyhemoglobin 1.2 % Arterial Blood Methemoglobin 1.1 % Blood Gas Hemoglobin 13.9 G/DL Oxygen Delivery Device BiPAP18/5 Blood Gas Inspired Oxygen 50 % White Blood Count 3.2 TH/MM3 Red Blood Count 4.25 MIL/MM3 Hemoglobin 12.6 GM/DL Hematocrit 38.5 % Mean Corpuscular Volume 90.6 FL Mean Corpuscular Hemoglobin 29.6 PG Mean Corpuscular Hemoglobin Concent 32.7 % Red Cell Distribution Width 13.8 % Platelet Count 139 TH/MM3 Mean Platelet Volume 9.8 FL Neutrophils (%) (Auto) 88.7 % Lymphocytes (%) (Auto) 10.3 % Monocytes (%) (Auto) 0.9 % Eosinophils (%) (Auto) 0.0 % Basophils (%) (Auto) 0.1 % Neutrophils # (Auto) 2.9 TH/MM3 Lymphocytes # (Auto) 0.3 TH/MM3 Monocytes # (Auto) 0.0 TH/MM3 Eosinophils # (Auto) 0.0 TH/MM3 Basophils # (Auto) 0.0 TH/MM3 CBC Comment DIFF FINAL Differential Comment Blood Urea Nitrogen 21 MG/DL Creatinine 1.58 MG/DL Random Glucose 159 MG/DL Total Protein 7.7 GM/DL Albumin 3.1 GM/DL Calcium Level 8.9 MG/DL Phosphorus Level 3.4 MG/DL Magnesium Level 1.9 MG/DL Alkaline Phosphatase 113 U/L Aspartate Amino Transf (AST/SGOT) 20 U/L Alanine Aminotransferase (ALT/SGPT) 18 U/L Total Bilirubin 0.4 MG/DL Sodium Level 138 MEQ/L Potassium Level 3.8 MEQ/L Chloride Level 101 MEQ/L Carbon Dioxide Level 29.1 MEQ/L Anion Gap 8 MEQ/L Estimat Glomerular Filtration Rate 43 ML/MIN Lactic Acid Level 1.2 mmol/L Imaging Last Impressions Head CT 03/12/17 0000 Signed Impressions: Service Date/Time: Sunday, March 12, 2017 10:32 - CONCLUSION: No acute intracranial abnormality. Deep white matter microvascular ischemic demyelinization and vascular calcifications appreciated Prashant Porter MD Chest X-Ray 03/12/17 0000 Signed Impressions: Service Date/Time: Sunday, March 12, 2017 13:01 - CONCLUSION: 1. Probable CHF. Harris Avalos MD Objective Remarks GENERAL: Patient is lying in bed in NAD SKIN: Warm and dry. HEAD: Normocephalic. EYES: No scleral icterus. No injection or drainage. NECK: Supple, trachea midline. No JVD or lymphadenopathy. CARDIOVASCULAR: Regular rate and rhythm without murmurs, gallops, or rubs. RESPIRATORY: Breath sounds equal bilaterally. No accessory muscle use. GASTROINTESTINAL: Abdomen soft, non-tender, nondistended. MUSCULOSKELETAL: No cyanosis, or edema. Neuro: Awake, confused at times A/P Problem List: (1) Altered mental status ICD Code: R41.82 - Altered mental status, unspecified Status: Acute (2) Acute respiratory failure with hypoxia and hypercapnia ICD Code: J96.01 - Acute respiratory failure with hypoxia; J96.02 - Acute respiratory failure with hypercapnia (3) Acute renal failure superimposed on stage 2 chronic kidney disease ICD Code: N17.9 - Acute kidney failure, unspecified; N18.2 - Chronic kidney disease, stage 2 (mild) Assessment and Plan NEUROLOGY Monitor neuro status avoid sedatives. More awake today CT the brain does not indicate any acute abnormality Ammonia level was normal PULMONARY Acute hypoxic/hypercapnic respiratory failure COPD Continue with oxygen keep sat >92% Bronchodilators, NIPPV PRN for resp distress CARDIOLOGY History of hypertension, hyperlipidemia Monitor HR and BP keep MAP>65mmHg GASTROENTEROLOGY On Pureed diet with Necator thick liquid diet Pepcid IV for GI prophylaxis GENITOURINARY Acute renal failure superimposed on chronic kidney disease stage II Monitor renal function, I/O's, electrolytes replacement as needed Renal function is improving with Cr: 1.58 today from 2.30 Continue with IVF NS@50ml/hr x 1liter then d/c. INFECTIOUS DISEASE Monitor for signs of infections ( Fever, WBC) ENDOCRINOLOGY SSI for glycemic control TSH:.041 HEMATOLOGY Monitor hemoglobin and transfuse if less than 7.0 PROPHYLAXIS DVT prevention with sequential compression devices, heparin SQ GI protection with Pepcid LINES Peripheral IVs next line Will transfer to floor under HEPAS Level 2 Problem Qualifiers (1) Altered mental status: Qualified Codes: R41.82 - Altered mental status, unspecified Yony Atkinson MD Mar 13, 2017 11:09
[2017-03-13] MEDS ORDERED: ACETAMINOPHEN/HYDROcodone 325 MG/5 MG TAB PO ONE (11:45)
[2017-03-13] MEDS: CLOPIDOGREL 75 MG TAB PO SCH (12:10)
[2017-03-13] MEDS: FAMOTIDINE 20 MG/2 ML VIAL IV PUSH SCH (12:11)
--- NOTE | 2017-03-13 13:31 | EKG ---
Date Performed: 03/12/2017 Time Performed: 18:41:05 PTAGE: 81 years EKG: Sinus rhythm WITH OCCASIONAL SUPRAVENTRICULAR PREMATURE COMPLEXES MARKED LEFT AXIS DEVIATION RIGHT BUNDLE BRANCH BLOCK VOLTAGE CRITERIA FOR LVH ABNORMAL ECG Since PREVIOUS TRACING , no significant change noted PREVIOUS TRACIN03/12/2017 10.22 DOCTOR: Ignacio Simons Interpretating Date/Time 03/13/2017 13:30:59
--- NOTE | 2017-03-13 13:33 | EKG ---
Date Performed: 03/12/2017 Time Performed: 22:45:01 PTAGE: 81 years EKG: Sinus rhythm WITH SINUS ARRHYTHMIA RIGHT BUNDLE BRANCH BLOCK WITH LEFT ANTERIOR FASCICULAR BLOCK ABNORMAL ECG Sin ce PREVIOUS TRACING , no significant change noted PREVIOUS TRACIN03/12/2017 18.41 DOCTOR: Ignacio Simons Interpretating Date/Time 03/13/2017 13:31:48
[2017-03-13] MEDS: ATORVASTATIN 20 MG TAB PO SCH (21:31)
[2017-03-14] VITALS (11 sets, daily range): BP systolic 150–161; BP diastolic 66–79; PULSE 76–121; RESP 18–30; TEMP 97.6–98.9; O2SAT 95–100
[2017-03-14] MEDS: RESP: ALBUTEROL 2.5 MG/IPRATROPIUM 0.5 MG NEB (SCH) INH ×4 (03:25→21:31)
[2017-03-14] MEDS: CHLORHEXIDINE GLUCONATE 2 % 1 PACK (2 CLOTHS) TOP SCH (04:00)
[2017-03-14 06:11] LABS: AUTOMATED NEUTROPHIL # 9.2 TH/MM3 (1.8-7.7); BASOPHIL % 0.1 % (0.0-2.0); HEMATOCRIT 40.4 % (39.0-51.0); HEMOGLOBIN 13.5 GM/DL (13.0-17.0); LYMPH % 7.1 % (9.0-44.0); LYMPHOCYTE # 0.8 TH/MM3 (1.0-4.8); MEAN CELL VOLUME 90.7 FL (80.0-100.0); MEAN CORPUSCULAR HEMOGLOBIN 30.3 PG (27.0-34.0); MEAN CORPUSCULAR HGB CONC 33.4 % (32.0-36.0); MEAN PLATELET VOLUME 9.9 FL (7.0-11.0); MONOCYTE # 0.7 TH/MM3 (0-0.9); NEUT % 85.8 % (16.0-70.0); PLATELET COUNT 161 TH/MM3 (150-450); RED BLOOD COUNT 4.45 MIL/MM3 (4.50-5.90); RED CELL DISTRIBUTION WIDTH 14.3 % (11.6-17.2); WHITE BLOOD COUNT 10.7 TH/MM3 (4.0-11.0)
[2017-03-14 06:36] LABS: BICARBONATE 30.7 MEQ/L (21.0-32.0); CREATININE 1.65 MG/DL (0.60-1.30)
[2017-03-14] MEDS: INSULIN ASPART SUPPLEMENTAL SCALE SQ SCH (08:00)
[2017-03-14] MEDS: DOCUSATE SODIUM 50 MG/SENNA 8.6 MG TAB PO SCH ×2 (08:42→21:54)
[2017-03-14] MEDS: FAMOTIDINE 20 MG/2 ML VIAL IV PUSH SCH (08:42)
[2017-03-14] MEDS: SODIUM CHLORIDE 0.9% FLUSH 10 ML FLUSH IV FLUSH SCH ×2 (08:42→21:54)
[2017-03-14] MEDS: CLOPIDOGREL 75 MG TAB PO SCH (08:42)
--- NOTE | 2017-03-14 08:54 | HHI.CCPN ---
Subjective Remarks/Hospital Course Is a 81 year-old male with severe altered mental status, obtundation and cannot give any information at all. Information was taken from medical records which appears to be dating back to 2010. Records indicate that he does have diabetes, anemia, peripheral artery disease, hyperlipidemia, chronic obstructive pulmonary disease, hypertension, history GI bleed, chronic kidney disease, enlarged prostate. All information from the ER physician indicates the patient was found down this morning and was unresponsive. He was acting normal last night. Patient was given a few doses of Narcan in the emergency department with little response. ER physician indicates that the patient was having waxing and waning of his mental status. He would sit up and we'll communicate minimally. However when I saw the patient he was given slightly unresponsive, he would not respond or talk. minimal respond to painful stimuli. ER physician planning on placing the patient on BiPAP for respiratory support. Abnormal findings on workup show acute renal failure on chronic kidney disease, chest x-ray shows probable CHF. Drug screen does show positive opiates. Otherwise workup is unremarkable. 03/13 Patient is lying in bed in NAD. On 2L oxygen 03/14 Patient is awake and alert on 2L oxygen. Afebrile. Objective Vital Signs Date Time Temp Pulse Resp B/P (MAP) Pulse Ox O2 Delivery O2 Flow Rate FiO2 03/14/17 07:45 99 Nasal Cannula 2.00 03/14/17 06:00 95 03/14/17 04:00 97.6 30 152/66 (94) 03/13/17 03:40 50 Intake and Output 03/14/17 03/14/17 03/15/17 08:00 16:00 00:00 Intake Total 160 ml Output Total 1200 ml Balance -1040 ml Result Diagram: 03/14/17 0505 03/14/17 0505 Other Results Laboratory Tests Test 03/14/17 05:05 White Blood Count 10.7 TH/MM3 Red Blood Count 4.45 MIL/MM3 Hemoglobin 13.5 GM/DL Hematocrit 40.4 % Mean Corpuscular Volume 90.7 FL Mean Corpuscular Hemoglobin 30.3 PG Mean Corpuscular Hemoglobin Concent 33.4 % Red Cell Distribution Width 14.3 % Platelet Count 161 TH/MM3 Mean Platelet Volume 9.9 FL Neutrophils (%) (Auto) 85.8 % Lymphocytes (%) (Auto) 7.1 % Monocytes (%) (Auto) 7.0 % Eosinophils (%) (Auto) 0.0 % Basophils (%) (Auto) 0.1 % Neutrophils # (Auto) 9.2 TH/MM3 Lymphocytes # (Auto) 0.8 TH/MM3 Monocytes # (Auto) 0.7 TH/MM3 Eosinophils # (Auto) 0.0 TH/MM3 Basophils # (Auto) 0.0 TH/MM3 CBC Comment DIFF FINAL Differential Comment Blood Urea Nitrogen 35 MG/DL Creatinine 1.65 MG/DL Random Glucose 122 MG/DL Calcium Level 9.0 MG/DL Sodium Level 138 MEQ/L Potassium Level 3.7 MEQ/L Chloride Level 100 MEQ/L Carbon Dioxide Level 30.7 MEQ/L Anion Gap 7 MEQ/L Estimat Glomerular Filtration Rate 40 ML/MIN Imaging Last Impressions Head CT 03/12/17 0000 Signed Impressions: Service Date/Time: Sunday, March 12, 2017 10:32 - CONCLUSION: No acute intracranial abnormality. Deep white matter microvascular ischemic demyelinization and vascular calcifications appreciated Prashant Porter MD Chest X-Ray 03/12/17 0000 Signed Impressions: Service Date/Time: Sunday, March 12, 2017 13:01 - CONCLUSION: 1. Probable CHF. Harris Avalos MD Objective Remarks GENERAL: Patient is lying in bed in NAD SKIN: Warm and dry. HEAD: Normocephalic. EYES: No scleral icterus. No injection or drainage. NECK: Supple, trachea midline. No JVD or lymphadenopathy. CARDIOVASCULAR: Regular rate and rhythm without murmurs, gallops, or rubs. RESPIRATORY: Breath sounds equal bilaterally. No accessory muscle use. GASTROINTESTINAL: Abdomen soft, non-tender, nondistended. MUSCULOSKELETAL: No cyanosis, or edema. Neuro: Awake, confused at times A/P Problem List: (1) Altered mental status ICD Code: R41.82 - Altered mental status, unspecified Status: Acute (2) Acute respiratory failure with hypoxia and hypercapnia ICD Code: J96.01 - Acute respiratory failure with hypoxia; J96.02 - Acute respiratory failure with hypercapnia (3) Acute renal failure superimposed on stage 2 chronic kidney disease ICD Code: N17.9 - Acute kidney failure, unspecified; N18.2 - Chronic kidney disease, stage 2 (mild) Assessment and Plan NEUROLOGY Monitor neuro status avoid sedatives. More awake today CT the brain does not indicate any acute abnormality Ammonia level was normal PULMONARY Acute hypoxic/hypercapnic respiratory failure COPD Continue with oxygen keep sat >92% Bronchodilators, NIPPV PRN for resp distress CARDIOLOGY History of hypertension, hyperlipidemia Monitor HR and BP keep MAP>65mmHg On Lipitor, Plavix, add Lopressor 12.5mg BID GASTROENTEROLOGY On Pureed diet with Necator thick liquid diet Pepcid IV for GI prophylaxis GENITOURINARY Acute renal failure superimposed on chronic kidney disease stage II Monitor renal function, I/O's, electrolytes replacement as needed Cr:1.65 today, Place on NS@50ml/hr INFECTIOUS DISEASE Monitor for signs of infections ( Fever, WBC) ENDOCRINOLOGY SSI for glycemic control TSH:.041 HEMATOLOGY Monitor CBC PROPHYLAXIS DVT prevention with SCD's, heparin SQ GI protection with Pepcid LINES Peripheral IVs next line Awaiting transfer to floor under [facility]PAS Level 2 Problem Qualifiers (1) Altered mental status: Qualified Codes: R41.82 - Altered mental status, unspecified Yony Atkinson MD Mar 14, 2017 08:54
[2017-03-14] MEDS ORDERED: PILL SPLITTER OTHER PRN (09:00)
--- NOTE | 2017-03-14 09:28 | MG ---
cc: ZOE PIEDRA M.D. Lab No: [id number] Date: 03/14/2017 Age: Sex: M Race: Hyperventilation not performed. A 81-year-old man found down by friends. Steve Beck. A lot of bifrontal muscle artifact is seen. There is theta slowing in the bilateral occipital head regions. I do not see any major hemisphere asymmetry. I do not see any definite epileptiform or seizure activity but it is a very poor study due to all the muscle artifact. Photic stimulation, hyperventilation not performed. IMPRESSION A lot of muscle artifact. I did not see any definite focal abnormality or seizure activity but it is not a great technical quality recording. Clinical correlation is needed. MD NILE Chance/MAGDA /9:03 AM /9:21 AM
[2017-03-14] MEDS: METOPROLOL TARTRATE 25 MG TAB PO SCH ×2 (11:52→21:54)
[2017-03-14] MEDS ORDERED: NALOXONE HCL 0.4 MG/ML AMP IV PUSH PRN (16:00)
[2017-03-14] MEDS ORDERED: ACETAMINOPHEN/HYDROcodone 325 MG/5 MG TAB PO PRN (16:00)
[2017-03-14] MEDS: ATORVASTATIN 20 MG TAB PO SCH (21:54)
[2017-03-14] MEDS: SODIUM CHLOR 0.9% 1000 ML INJ 1,000 ML IV SCH (22:12)
[2017-03-14] MEDS: ACETAMINOPHEN/HYDROcodone 325 MG/7.5 MG TAB PO PRN (22:18)
[2017-03-15] VITALS (18 sets, daily range): BP systolic 157–178; BP diastolic 70–89; PULSE 72–96; RESP 16–20; TEMP 96.3–98; O2SAT 94–98
[2017-03-15] MEDS: RESP: ALBUTEROL 2.5 MG/IPRATROPIUM 0.5 MG NEB (SCH) INH ×4 (03:45→20:33)
[2017-03-15] MEDS: CHLORHEXIDINE GLUCONATE 2 % 1 PACK (2 CLOTHS) TOP SCH (04:00)
[2017-03-15] MEDS: SODIUM CHLOR 0.9% 1000 ML INJ 1,000 ML IV SCH ×3 (04:45→13:24)
[2017-03-15 06:11] LABS: AUTOMATED NEUTROPHIL # 6.2 TH/MM3 (1.8-7.7); BASOPHIL % 0.3 % (0.0-2.0); EOSINOPHIL # 0.1 TH/MM3 (0-0.4); EOSINOPHIL % 0.9 % (0.0-4.0); HEMATOCRIT 43.8 % (39.0-51.0); HEMOGLOBIN 14.8 GM/DL (13.0-17.0); LYMPH % 14.6 % (9.0-44.0); LYMPHOCYTE # 1.2 TH/MM3 (1.0-4.8); MEAN CELL VOLUME 91.6 FL (80.0-100.0); MEAN CORPUSCULAR HEMOGLOBIN 30.8 PG (27.0-34.0); MEAN CORPUSCULAR HGB CONC 33.7 % (32.0-36.0); MONO % 9.7 % (0.0-8.0); MONOCYTE # 0.8 TH/MM3 (0-0.9); NEUT % 74.5 % (16.0-70.0); PLATELET COUNT 169 TH/MM3 (150-450); RED BLOOD COUNT 4.79 MIL/MM3 (4.50-5.90); RED CELL DISTRIBUTION WIDTH 14.1 % (11.6-17.2); WHITE BLOOD COUNT 8.3 TH/MM3 (4.0-11.0)
[2017-03-15 06:27] LABS: CALCIUM 9.6 MG/DL (8.5-10.1); CREATININE 1.44 MG/DL (0.60-1.30)
--- NOTE | 2017-03-15 09:38 | HHI.PR ---
Subjective Remarks Is a 81 year-old male with severe altered mental status, obtundation and cannot give any information at all. Information was taken from medical records which appears to be dating back to 2010. Records indicate that he does have diabetes, anemia, peripheral artery disease, hyperlipidemia, chronic obstructive pulmonary disease, hypertension, history GI bleed, chronic kidney disease, enlarged prostate. All information from the ER physician indicates the patient was found down this morning and was unresponsive. He was acting normal last night. Patient was given a few doses of Narcan in the emergency department with little response. ER physician indicates that the patient was having waxing and waning of his mental status. He would sit up and we'll communicate minimally. However when I saw the patient he was given slightly unresponsive, he would not respond or talk. minimal respond to painful stimuli. ER physician planning on placing the patient on BiPAP for respiratory support. Abnormal findings on workup show acute renal failure on chronic kidney disease, chest x-ray shows probable CHF. Drug screen does show positive opiates. Otherwise workup is unremarkable. 03/13 Patient is lying in bed in NAD. On 2L oxygen 03/14 Patient is awake and alert on 2L oxygen. Afebrile. = 03/15. Patient awake, nonverbal. Moving all extremities spontaneously. Appears to say "back" when asked if he has any pain. Objective Vital Signs Date Time Temp Pulse Resp B/P (MAP) Pulse Ox O2 Delivery O2 Flow Rate FiO2 03/15/17 08:00 96.3 92 18 167/89 (115) 94 03/15/17 07:33 88 03/15/17 04:00 97.6 88 16 178/80 (112) 95 03/15/17 04:00 81 03/15/17 03:47 97 Nasal Cannula 2.00 03/15/17 00:55 85 03/15/17 00:00 97.9 73 18 157/70 (99) 98 03/14/17 20:50 98.9 86 18 150/69 (96) 98 03/14/17 16:00 98.2 76 18 161/79 (106) 97 03/14/17 15:46 98 Nasal Cannula 2.00 03/14/17 10:50 97.8 88 18 161/72 (101) 97 I/O 03/14/17 03/14/17 03/14/17 03/15/17 03/15/17/22/18 07:00 15:00 23:00 07:00 15:00 23:00 Intake Total 160 ml 360 ml 240 ml 120 ml Output Total 1200 ml 700 ml 700 ml Balance -1040 ml 360 ml -460 ml -580 ml Intake Oral 160 ml 360 ml 240 ml 120 ml Output Urine Total 1200 ml 700 ml 700 ml Bladder Scan Volume Amount 328 ml # Voids 0 0 # Bowel Movements 0 0 Result Diagram: 03/15/17 0509 03/15/17 0509 Objective Remarks GENERAL: Patient lying in bed. Appears couple. Nonverbal. Alert however. SKIN: Warm and dry. HEAD: Normocephalic. EYES: No scleral icterus. No injection or drainage. NECK: Supple, trachea midline. No JVD. CARDIOVASCULAR: Regular rate and rhythm without murmurs, gallops, or rubs. RESPIRATORY: Breath sounds equal bilaterally. No accessory muscle use. GASTROINTESTINAL: Abdomen soft, non-tender, nondistended. MUSCULOSKELETAL: No cyanosis, or edema. BACK: Nontender without obvious deformity. No CVA tenderness. A/P Assessment and Plan //Acute suspected toxic encephalopathy on admission. = Opiates positive on urine drug screen. -CT head with only chronic brain changes. -EEG without epileptiform activity. Ammonia within normal limits. = 03/15. Patient not back to baseline. Recheck CT to see if there any changes consistent with stroke. Consult neurology. //Acute respiratory failure with hypoxia and hypercapnia. = Oxygen as needed to keep sats over 92. Respiratory status improved. Continue to monitor closely. //Acute kidney injury. -Creatinine 2.3 on admission, baseline 1.1 in 2010. = Creatinine 1.44. Improved. Continue to monitor. //History of BPH. -Continue home tamsulosin. //Hypertension. -Monitor blood pressure and adjust medications as necessary. //Hyperlipidemia. Chronic. Continue home statin. //GERD. Chronic. = Continue PPI. //Peripheral artery disease. With history of external iliac artery stent in 2010. = Continue home Plavix. //History of chronic pain on narcotics. Discharge Planning PT recommends rehabilitation. Pending neurology consult. Repeat CT head. Jonatan Dupont MD Mar 15, 2017 09:37
[2017-03-15] MEDS: CLOPIDOGREL 75 MG TAB PO SCH (10:12)
[2017-03-15] MEDS: FAMOTIDINE 20 MG/2 ML VIAL IV PUSH SCH (10:12)
[2017-03-15] MEDS: SODIUM CHLORIDE 0.9% FLUSH 10 ML FLUSH IV FLUSH SCH ×2 (10:12→21:40)
[2017-03-15] MEDS: ACETAMINOPHEN/HYDROcodone 325 MG/7.5 MG TAB PO PRN ×4 (10:13→17:23)
[2017-03-15] MEDS: METOPROLOL TARTRATE 25 MG TAB PO SCH ×2 (10:13→21:40)
[2017-03-15] MEDS: DOCUSATE SODIUM 50 MG/SENNA 8.6 MG TAB PO SCH ×2 (10:13→21:40)
--- NOTE | 2017-03-15 11:02 | RADRPT ---
EXAM DATE/TIME: 03/15/2017 10:22 [facility] COMPARISON: CT BRAIN W/O CONTRAST, March 12, 2017, 10:32. INDICATIONS : Altered mental status. RADIATION DOSE: 56.35 CTDIvol (mGy) MEDICAL HISTORY : Hypertension. Chronic obstructive pulmonary disease. diabetes SURGICAL HISTORY : None. ENCOUNTER: Initial ACUITY: 1 day PAIN SCALE: Non-responsive LOCATION: Bilateral head TECHNIQUE: Multiple contiguous axial images were obtained of the head. Using automated exposure control and adj ustment of the mA and/or kV according to patient size, radiation dose was kept as low as reasonably a chievable to obtain optimal diagnostic quality images. DICOM format image data is available electro nically for review and comparison. FINDINGS: CEREBRUM: Atrophy. Extensive periventricular low attenuation change involving both cerebral hemispheres. Small chronic lacunar infarction involving the right basal plane clear. The ventricles are normal for age. No evidence of midline shift, mass lesion, hemorrhage or acute infarction. No extra-axial fluid col lections are seen. POSTERIOR FOSSA: The cerebellum and brainstem are intact. The 4th ventricle is midline. The cerebellopontine angle i s unremarkable. EXTRACRANIAL: The visualized portion of the orbits is intact. SKULL: The calvaria is intact. No evidence of skull fracture. CONCLUSION: 1. No acute intracranial abnormality. 2. Atrophy and chronic small vessel ischemic change. Juanito North Jr., MD on March 15, 2017 at 10:58 Board Certified Radiologist. This report was verified electronically.
--- NOTE | 2017-03-15 13:49 | MB ---
cc: FELICIA BREWSTER MD DATE OF CONSULTATION 03/15/2017 REASON FOR CONSULTATION Encephalopathy. HISTORY OF PRESENT ILLNESS Mr. Wayne is a 81-year-old male who was brought into the [facility] because of severe altered mental status and obtundation. During the encounter the patient is not aware of how this happened. He denies any headache, chest pain, lightheadedness or racing heart prior to this episode. He was found down. Review of medical records indicate that he has had diabetes, peripheral artery disease, anemia, hyperlipidemia, COPD, hypertension, history of GI bleed, CKD and BPH. He is on opiate medication and pain medication for his chronic back pain, "My back has been a mess." He was reportedly acting normal the night before. The work-up showed acute renal failure on CKD. A chest x-ray revealed probable congestive heart failure. Drug screen was positive for opiates. REVIEW OF SYSTEMS A 12-point review of systems is negative except for what is stated in the HPI. PAST MEDICAL HISTORY 1. Hypertension. 2. Hyperlipidemia. 3. CKD. 4. Anemia. 5. Thrombocytopenia. 6. Peripheral artery disease. 7. COPD. 8. History of GI bleed. 9. Diabetes. 10.Prostate enlargement. 11.Obesity. PAST SURGICAL HISTORY 1. Left external iliac artery stent. 2. Anterior tibial angioplasty. 3. Thoracocentesis. 4. Endoscopy. 5. Hernia repair. ALLERGIES No known allergies. MEDICATIONS 1. Baclofen. 2. Amoxicillin. 3. Hydrocodone/acetaminophen. 4. Omeprazole. 5. Lipitor 20 mg. 6. Citalopram. 7. Plavix. 8. Tamsulosin. 9. Amlodipine. FAMILY HISTORY Mother at 36 years of age from cervical cancer. Father from myocardial infarction at 56. SOCIAL HISTORY Does not smoke or use illicit drugs. As per medical records two beers daily. PHYSICAL EXAMINATION GENERAL: Awake, alert, oriented, in mild distress due to pain, good historian. HEENT: Atraumatic, normocephalic. Intact hearing. Intact vision. NECK: Supple. No carotid bruit. No signs of meningeal irritation. CARDIAC: Regular rate and rhythm. LUNGS: Clear to auscultation. No wheezes. ABDOMEN: Soft, nontender. EXTREMITIES: No edema, cyanosis or clubbing. NEUROLOGIC: Awake, alert, oriented to time, person and place. No dysarthria. No dysphasia. Cranial nerves II through XII are grossly intact. Motor system examination 5/5 bilateral upper extremities. No abnormal movement. Normal tone bilateral lower extremities. Limited exam due to pain when moving the lower extremities due to pain in the back. Reflexes 2+ bilaterally symmetrical. Plantars are bilaterally downgoing. Sensation is intact throughout. [id number] is intact. PSYCHIATRIC: Normal mood and behavior. No hallucinations. IMAGING - Head CT scan and a followup head CT scan were unremarkable for an acute intracranial abnormality. There are deep white water microvascular ischemic changes. LABORATORY - White blood cells 3.2, hemoglobin 12.6. ESR 57. UDS positive for opiates. Sodium, potassium and chloride are normal. Anion gap 6. BUN elevated at 27, creatinine 1.44. Vitamin-B12 378. TSH normal at 0.414. Calcium is normal. DIAGNOSTIC IMPRESSION 1. Encephalopathy. - Possible etiology is medication adverse effect versus metabolic/chronic kidney disease. EEG with no ictal activity. Head CT scan with no acute intracranial changes. 2. Acute respiratory failure. 3. Acute kidney injury. 4. Hypertension. 5. Peripheral artery disease. PLAN 1. Neuro-checks q.4h. 2. Continue statin, atorvastatin 20 mg daily. 3. Continue Plavix 75 mg daily. 4. MRI brain without contrast. 5. Carotid ultrasound. 6. Telemetry. 7. Fall precautions. 8. DVT prophylaxis with SCDs. 9. Limit opiate use. Thank you for the opportunity to participate in the care of your patient. MD SANTOS Lei/DEMOND /1:15 PM /1:27 PM JACY
[2017-03-15] MEDS ORDERED: AMOX500C PO (16:03)
--- NOTE | 2017-03-15 16:40 | RADRPT ---
EXAM DATE/TIME: 03/15/2017 16:18 [facility] COMPARISON: No previous studies available for comparison. INDICATIONS : MRI clearance MEDICAL HISTORY : Hypertension. Chronic obstructive pulmonary disease. Diabetes mellitus type II. altered mental st atus SURGICAL HISTORY : left groin ENCOUNTER: Subsequent ACUITY: 1 day PAIN SCORE: Non-responsive. LOCATION: Bilateral abdomen FINDINGS: Supine view of the abdomen was performed. The abdominal bowel gas pattern is normal. No abnormal ma sses, calcifications, or organomegaly is seen. Vascular stent is noted on the left. Extensive ather osclerotic disease is noted. The osseous structures are unremarkable. CONCLUSION: No MRI contraindication. Regan Avalos MD FACR on March 15, 2017 at 16:37 Board Certified Radiologist. This report was verified electronically.
--- NOTE | 2017-03-15 17:16 | RADRPT ---
EXAM DATE/TIME: 03/15/2017 16:34 [facility] COMPARISON: No previous studies available for comparison. INDICATIONS : Altered mental status. MEDICAL HISTORY : Hypertension. Congestive heart failure. Renal insufficiency. Prostate enlargeme nt. SURGICAL HISTORY : Iliac stent , Left foot sx, Left ankle skin graft ENCOUNTER: Initial ACUITY: 1 day PAIN SCORE: 2/10 LOCATION: Bilateral cranial TECHNIQUE: Multiplanar, multisequence MRI of the brain was performed without contrast. FINDINGS: There is moderate central and cortical atrophy with dilatation of the ventricular sulcal spaces. Mod erate periventricular white matter changes are evident extending into the brainstem. There is no res tricted diffusion. There is no parenchymal hemorrhage No extra-axial fluid collections appreciated Midline structures are intact Moderate white matter changes are noted in the brainstem. Posterior fossa otherwise unremarkable. CONCLUSION: Marked central and cortical atrophy with periventricular white matter changes otherwi se negative. Regan Avalos MD FACR on March 15, 2017 at 17:12 Board Certified Radiologist. This report was verified electronically.
--- NOTE | 2017-03-15 20:56 | RADRPT ---
EXAM DATE/TIME: 03/15/2017 19:31 [facility] COMPARISON: No previous studies available for comparison. INDICATIONS : Transient ischemic attack. MEDICAL HISTORY : Peripheral vascular disease. Congestive heart failure. Hypercholesterolemia. Numbness, left leg. Jo pheral arterial disease. Hyperlipidemia. HTN. COPD. GI Bleed. Chronic renal failure. Enlarged prostat e. Arthritis. Diabetes. Anemia. Thrombocytopenia. Anxiety. Left foot ulcer. MRSA. SURGICAL HISTORY : Eye surgery. Testicle surgery. Left ankle surgery. Skin graft. Left EIA stent to left SFA. Anterior t ibial angioplasty. Blood transfusions. ENCOUNTER: Initial ACUITY: 1 day PAIN SCORE: 0/10 LOCATION: Bilateral neck PEAK SYSTOLIC VELOCITIES (cm/sec): ICA/CCA RATIO: Right: 1.9 Left: 2.1 ICA: Right: 76.9 Left: 99.2 CCA: Right: 40.2 Left: 47.7 ECA: Right: 107.6 Left: 105.7 VERTEBRAL: Right: 30.2 antegrade Left: 51.2 antegrade Elevated flow velocities and ICA/CCA ratios have been found to correlate with increased degrees of vessel stenosis, calculated as percentage of diameter relative to a normal segment of distal ICA/CCA FINDINGS: There is moderate visible plaque present bilaterally with mildly elevated systolic velocity ratio vidal aterally. Findings suggestive of at least a moderate stenosis. This would be better evaluated with CT A. CONCLUSION: Moderate visible plaque near the carotid bifurcations. CTA carotids would be better able to evaluate for significant carotid stenosis. Huber Olvera MD on March 15, 2017 at 20:52 Board Certified Radiologist. This report was verified electronically.
[2017-03-15] MEDS: ATORVASTATIN 20 MG TAB PO SCH (21:40)
[2017-03-15] MEDS: TAMSULOSIN HCL 0.4 MG CAP PO SCH (21:40)
[2017-03-16] VITALS (14 sets, daily range): BP systolic 118–168; BP diastolic 55–95; PULSE 64–93; RESP 17–19; TEMP 96.3–98.4; O2SAT 93–98
[2017-03-16] MEDS: ACETAMINOPHEN/HYDROcodone 325 MG/7.5 MG TAB PO PRN ×2 (02:28→09:21)
[2017-03-16] MEDS: RESP: ALBUTEROL 2.5 MG/IPRATROPIUM 0.5 MG NEB (SCH) INH ×4 (03:29→20:36)
[2017-03-16] MEDS: SODIUM CHLOR 0.9% 1000 ML INJ 1,000 ML IV SCH ×3 (03:50→23:50)
[2017-03-16] MEDS: CHLORHEXIDINE GLUCONATE 2 % 1 PACK (2 CLOTHS) TOP SCH (04:00)
[2017-03-16 07:27] LABS: BASOPHIL % 0.1 % (0.0-2.0); EOSINOPHIL % 0.4 % (0.0-4.0); HEMATOCRIT 42.5 % (39.0-51.0); HEMOGLOBIN 14.3 GM/DL (13.0-17.0); LYMPHOCYTE # 0.8 TH/MM3 (1.0-4.8); MEAN CELL VOLUME 90.5 FL (80.0-100.0); MEAN CORPUSCULAR HEMOGLOBIN 30.5 PG (27.0-34.0); MEAN CORPUSCULAR HGB CONC 33.7 % (32.0-36.0); MEAN PLATELET VOLUME 9.9 FL (7.0-11.0); MONO % 7.9 % (0.0-8.0); MONOCYTE # 0.7 TH/MM3 (0-0.9); NEUT % 82.6 % (16.0-70.0); PLATELET COUNT 156 TH/MM3 (150-450); RED CELL DISTRIBUTION WIDTH 14.1 % (11.6-17.2); WHITE BLOOD COUNT 8.5 TH/MM3 (4.0-11.0)
[2017-03-16 07:39] LABS: ALBUMIN 3.2 GM/DL (3.4-5.0); BICARBONATE 29.3 MEQ/L (21.0-32.0); CALCIUM 8.9 MG/DL (8.5-10.1); CREATININE 1.53 MG/DL (0.60-1.30); PHOSPHORUS 3.5 MG/DL (2.5-4.9)
[2017-03-16 07:40] LABS: MAGNESIUM 2.1 MG/DL (1.5-2.5)
[2017-03-16] MEDS: SODIUM CHLORIDE 0.9% FLUSH 10 ML FLUSH IV FLUSH SCH ×2 (09:00→21:47)
[2017-03-16] MEDS: DOCUSATE SODIUM 50 MG/SENNA 8.6 MG TAB PO SCH ×2 (09:00→21:46)
[2017-03-16] MEDS: CLOPIDOGREL 75 MG TAB PO SCH (09:21)
[2017-03-16] MEDS: METOPROLOL TARTRATE 25 MG TAB PO SCH ×2 (09:21→21:46)
[2017-03-16] MEDS: FAMOTIDINE 20 MG/2 ML VIAL IV PUSH SCH (09:23)
--- NOTE | 2017-03-16 14:48 | HHI.PR ---
Subjective Remarks no complains of headaches, nausea or vomiting he admits to taking too much of pain meds for toothache- left upper molar no complains of dental pain at this time Objective Vitals Vital Signs Date Time Temp Pulse Resp B/P (MAP) Pulse Ox O2 Delivery O2 Flow Rate FiO2 03/16/17 11:20 96.4 83 18 120/95 (103) 97 03/16/17 09:44 93 Nasal Cannula 3.00 03/16/17 08:00 96.6 80 18 118/55 (76) 98 03/16/17 07:00 93 03/16/17 04:07 97.2 84 18 136/83 (100) 98 03/16/17 04:00 77 03/16/17 03:32 98 Nasal Cannula 2.00 03/16/17 00:09 97.6 86 18 168/81 (110) 96 03/16/17 00:00 87 03/15/17 20:30 96.8 82 18 177/89 (118) 98 03/15/17 20:15 96 03/15/17 18:30 91 03/15/17 18:08 92 03/15/17 17:27 74 03/15/17 17:09 97 Nasal Cannula 2.00 03/15/17 16:00 98.0 72 20 160/80 (106) 97 03/15/17 15:24 78 I/O 03/15/17 03/15/17 03/15/17 03/16/17 03/16/17 03/16/17 07:00 15:00 23:00 07:00 15:00 23:00 Intake Total 120 ml 929 ml 240 ml 120 ml Output Total 700 ml Balance -580 ml 929 ml 240 ml 120 ml Intake Oral 120 ml 250 ml 240 ml 120 ml IV Total 679 ml Output Urine Total 700 ml Bladder Scan Volume Amount 328 ml # Voids 0 3 4 # Bowel Movements 0 0 Result Diagram: 03/16/1730 03/16/1730 Imaging Last Impressions Head CT 03/15/17 0000 Signed Impressions: Service Date/Time: Wednesday, March 15, 2017 10:22 - CONCLUSION: 1. No acute intracranial abnormality. 2. Atrophy and chronic small vessel ischemic change. Juanito North Jr., MD Carotid Artery Ultrasound 03/15/17 0000 Signed Impressions: Service Date/Time: Wednesday, March 15, 2017 19:31 - CONCLUSION: Moderate visible plaque near the carotid bifurcations. CTA carotids would be better able to evaluate for significant carotid stenosis. Huber Olvera MD Brain MRI 03/15/17 0000 Signed Impressions: Service Date/Time: Wednesday, March 15, 2017 16:34 - CONCLUSION: Marked central and cortical atrophy with periventricular white matter changes otherwise negative. Regan Avalos MD FACR Abdomen X-Ray 03/15/17 0000 Signed Impressions: Service Date/Time: Wednesday, March 15, 2017 16:18 - CONCLUSION: No MRI contraindication. Regan Avalos MD FACR Chest X-Ray 03/12/17 0000 Signed Impressions: Service Date/Time: Sunday, March 12, 2017 13:01 - CONCLUSION: 1. Probable CHF. Harris Avalos MD Objective Remarks awake and alert, oriented x 3 no acute distress anicteric oral cavity- no exudates- left upper molar tooth seems impacted/buried and embedded in the gum area - some swelling around gum area rotten teeth no nuchal rigidity no rales regular rhythm abdomen soft, nontender extremities no edema A/P Problem List: (1) Acute respiratory failure with hypoxia and hypercapnia ICD Code: J96.01 - Acute respiratory failure with hypoxia; J96.02 - Acute respiratory failure with hypercapnia (2) Acute renal failure superimposed on stage 2 chronic kidney disease ICD Code: N17.9 - Acute kidney failure, unspecified; N18.2 - Chronic kidney disease, stage 2 (mild) (3) Altered mental status ICD Code: R41.82 - Altered mental status, unspecified Status: Acute Assessment and Plan 81 years old male //Acute suspected toxic encephalopathy on admission- he now admits that he took more than usual of his pain meds for his dental pain = Opiates positive on urine drug screen. -CT head with only chronic brain changes. -EEG without epileptiform activity. Ammonia within normal limits. = 03/15. //Acute respiratory failure with hypoxia and hypercapnia- likey from overmedicated with pain meds. = Oxygen as needed to keep sats over 92. Respiratory status improved. Continue to monitor closely. Dental pain/infection- Very Poor dentition- left upper moral with mild gingival swelling - OP ff up with a dentist - Lortab prn for pain q 6 - restart po antibiotics- augmentin 500 mg po tid //Acute kidney injury.likely with undelrying CKI -Creatinine 2.3 on admission, baseline 1.1 in 2010. = Creatinine 1.44. Improved. Continue to monitor. - continue gentle hydration //History of BPH. -Continue home tamsulosin. //Hypertension. -Monitor blood pressure and adjust medications as necessary. //Hyperlipidemia. Chronic. Continue home statin. //GERD. Chronic. = Continue PPI. //Peripheral artery disease. With history of external iliac artery stent in 2010. = Continue home Plavix. History of COPD - spiriva 1 puff daily PT/eval and treat Problem Qualifiers (1) Altered mental status: Qualified Codes: R41.82 - Altered mental status, unspecified Nathanael Benito MD Mar 16, 2017 14:48
[2017-03-16] MEDS ORDERED: ACETAMINOPHEN/HYDROcodone 325 MG/7.5 MG TAB PO PRN (15:00)
[2017-03-16] MEDS: AMOXICILLIN/CLAVULANATE K 500 MG TAB PO SCH ×2 (15:00→21:46)
--- NOTE | 2017-03-16 15:09 | HHI.FF ---
Face to Face Verification Diagnosis: (1) Narcotic overdose (2) Altered mental status (3) Acute respiratory failure with hypoxia and hypercapnia (4) Acute renal failure superimposed on stage 2 chronic kidney disease (5) acute urinary retention- BPH Home Health Nursing Order: Medical education Signs/symptoms of disease process Nursing assessment with vital signs Szymanski catheter maintenance I have seen patient Fito Wayne on 03/16/17. My clinical findings support the need for the requested home health care services because: Ltd mobility - disease progression Deconditioned w/ increased weakness Need for psychosocial assistance Infection w/ risk of complications I certify that my clinical findings support that this patient is homebound because: Need for psychosocial assistance Nathanael Benito MD Mar 16, 2017 15:09
[2017-03-16] MEDS: TAMSULOSIN HCL 0.4 MG CAP PO SCH (21:46)
[2017-03-16] MEDS: ACETAMINOPHEN/HYDROcodone 325 MG/5 MG TAB PO PRN (21:46)
[2017-03-16] MEDS: ATORVASTATIN 20 MG TAB PO SCH (21:46)
[2017-03-17] VITALS (8 sets, daily range): BP systolic 107–160; BP diastolic 52–69; PULSE 64–90; RESP 17–18; TEMP 96.4–98.5; O2SAT 94–100
[2017-03-17] MEDS: CHLORHEXIDINE GLUCONATE 2 % 1 PACK (2 CLOTHS) TOP SCH ×2 (04:00→21:31)
[2017-03-17] MEDS: AMOXICILLIN/CLAVULANATE K 500 MG TAB PO SCH (05:49)
--- NOTE | 2017-03-17 08:38 | HHI.PR ---
Subjective Remarks persistent pain- oral/dental- patient really looked uncomfortable now complains of weak stream/flow- difficulty urination, on further discussion with him - he saw a dentist for increasing dental pain and was told that he will need an oral surgeon Objective Vitals Vital Signs Date Time Temp Pulse Resp B/P (MAP) Pulse Ox O2 Delivery O2 Flow Rate FiO2 03/17/17 04:45 98.4 83 17 134/67 (89) 95 03/17/17 00:50 97.9 74 18 107/52 (70) 97 03/16/17 23:46 64 03/16/17 20:40 98.4 78 19 132/67 (88) 96 03/16/17 20:38 97 Nasal Cannula 2.00 03/16/17 20:37 77 03/16/17 16:02 96.3 74 17 146/64 (91) 96 03/16/17 11:20 96.4 83 18 120/95 (103) 97 03/16/17 09:44 93 Nasal Cannula 3.00 I/O 03/16/17 03/16/17 03/16/17 03/17/17 03/17/17 03/17/17 07:00 15:00 23:00 07:00 15:00 23:00 Intake Total 120 ml 480 ml 616 ml 804 ml Balance 120 ml 480 ml 616 ml 804 ml Intake Oral 120 ml 480 ml 240 ml 240 ml IV Total 376 ml 564 ml # Voids 4 3 1 2 # Bowel Movements 0 1 1 1 Result Diagram: 03/16/17 0630 03/16/17 0630 Imaging Last Impressions Head CT 03/15/17 0000 Signed Impressions: Service Date/Time: Wednesday, March 15, 2017 10:22 - CONCLUSION: 1. No acute intracranial abnormality. 2. Atrophy and chronic small vessel ischemic change. Juanito North Jr., MD Carotid Artery Ultrasound 03/15/17 0000 Signed Impressions: Service Date/Time: Wednesday, March 15, 2017 19:31 - CONCLUSION: Moderate visible plaque near the carotid bifurcations. CTA carotids would be better able to evaluate for significant carotid stenosis. Huber Olvera MD Brain MRI 03/15/17 0000 Signed Impressions: Service Date/Time: Wednesday, March 15, 2017 16:34 - CONCLUSION: Marked central and cortical atrophy with periventricular white matter changes otherwise negative. Regan Avalos MD FACR Abdomen X-Ray 03/15/17 0000 Signed Impressions: Service Date/Time: Wednesday, March 15, 2017 16:18 - CONCLUSION: No MRI contraindication. Regan Avalos MD FACR Chest X-Ray 03/12/17 0000 Signed Impressions: Service Date/Time: Sunday, March 12, 2017 13:01 - CONCLUSION: 1. Probable CHF. Harris Avalos MD Objective Remarks awake and alert, oriented x 3 no acute distress anicteric oral cavity- no exudates- left upper molar teeth decayed seems impacted/buried and embedded in the gum area - some swelling around gum area lower teeth rotten no nuchal rigidity no rales regular rhythm abdomen soft, nontender, bladder distended slightly extremities no edema A/P Problem List: (1) Acute respiratory failure with hypoxia and hypercapnia ICD Code: J96.01 - Acute respiratory failure with hypoxia; J96.02 - Acute respiratory failure with hypercapnia (2) Acute renal failure superimposed on stage 2 chronic kidney disease ICD Code: N17.9 - Acute kidney failure, unspecified; N18.2 - Chronic kidney disease, stage 2 (mild) (3) Altered mental status ICD Code: R41.82 - Altered mental status, unspecified Status: Acute Assessment and Plan 81 years old male Acute suspected toxic encephalopathy on admission-RESOLVed - secondary to pain meds - he now admits that he took more than usual of his pain meds for his persistent dental pain -CT head with only chronic brain changes. -EEG without epileptiform activity. Ammonia within normal limits. = 03/15. Acute respiratory failure with hypoxia and hypercapnia- likey from overmedicated with pain meds.- REsolved = Oxygen as needed to keep sats over 92. Respiratory status improved. Continue to monitor closely. Dental pain/infection- Very Poor dentition- left upper moral with mild gingival swelling- pain persistebnt - consult Oral surgery - on further discussion with him- was seen by a dentist and was told that he needs an Oral surgeon - Lortab prn for pain q 6 - antibiotics- change to PenVK 500 mg po qid - spoke with oral surgery- Dr. salcido- ff up with him in his office [phone]- in 1-2 days- and they will take films and manage this Acute kidney injury.likely with undelrying CKI- now creatinine increased likely from obstructive uropathy component -Creatinine 2.3 on admission, baseline 1.1 in 2010. = Creatinine 1.44. Improved. - now up again - will place kraft - recheck BMP in am - Urology consult Acute urinary retention History of BPH.- now symptoamtic -Continue home tamsulosin. - check bladder scan-- about [address] kraft if significant. - get Urology consult for recommendation //Hypertension. -Monitor blood pressure and adjust medications as necessary. //Hyperlipidemia. Chronic. Continue home statin. //GERD. Chronic. = Continue PPI. //Peripheral artery disease. With history of external iliac artery stent in 2010. = Continue home Plavix.- will hold in the event that Oral surgeon agrees to do surgery History of COPD - spiriva 1 puff daily PT/eval and treat DC planning- SNF Problem Qualifiers (1) Altered mental status: Qualified Codes: R41.82 - Altered mental status, unspecified Nathanael Benito MD Mar 17, 2017 08:38
[2017-03-17] MEDS: SODIUM CHLORIDE 0.9% FLUSH 10 ML FLUSH IV FLUSH SCH ×2 (09:00→21:35)
[2017-03-17 09:42] LABS: CALCIUM 8.7 MG/DL (8.5-10.1); CREATININE 2.12 MG/DL (0.60-1.30)
[2017-03-17] MEDS: ACETAMINOPHEN/HYDROcodone 325 MG/5 MG TAB PO PRN (10:33)
[2017-03-17] MEDS: PANTOPRAZOLE SOD 40 MG DELAYED RELEASE TAB PO SCH (10:33)
[2017-03-17] MEDS: DOCUSATE SODIUM 50 MG/SENNA 8.6 MG TAB PO SCH ×2 (10:33→21:35)
[2017-03-17] MEDS: METOPROLOL TARTRATE 25 MG TAB PO SCH ×2 (10:33→21:35)
[2017-03-17] MEDS: CHLORHEXIDINE GLUCONATE 0.12% 15 ML CUP SWISH-SPIT SCH ×3 (12:28→18:10)
[2017-03-17] MEDS: PENICILLIN V POTASSIUM 500 MG TAB PO SCH ×2 (12:28→18:10)
--- NOTE | 2017-03-17 13:25 | PD.CONS ---
HPI Service Urology Consult Requested By Dr. Benito Reason for Consult Difficulty urinating Primary Care Physician Meri Reaves MD Diagnosis: (1) Acute respiratory failure with hypoxia and hypercapnia ICD Code: J96.01 - Acute respiratory failure with hypoxia; J96.02 - Acute respiratory failure with hypercapnia (2) Acute renal failure superimposed on stage 2 chronic kidney disease ICD Code: N17.9 - Acute kidney failure, unspecified; N18.2 - Chronic kidney disease, stage 2 (mild) (3) Altered mental status ICD Code: R41.82 - Altered mental status, unspecified History of Present Illness 81-year-old gentleman with history BPH managed over at the [facility] now with urinary retention. A Szymanski catheter was placed with evacuation of more than 1300 cc of urine. A urology consult was placed regarding further recommendations. Patient is presently taking Flomax 0.4 mg by mouth daily. At the time of consultation the patient was not any apparent distress. The indwelling Szymanski catheter was draining clear yellow urine. Review of Systems ROS Limitations: Altered Mental Status (now improved) Constitutional: DENIES: Fever, Night Sweats Cardiovascular: DENIES: Chest pain Gastrointestinal: DENIES: Abdominal pain Genitourinary: DENIES: Hematuria, Dysuria Except as stated in HPI: all other systems reviewed are Neg Past Family Social History Past Medical History BPH Hypertension Chronic kidney disease Anemia Peripheral vascular disease COPD Diabetes mellitus Hyperlipidemia Past Surgical History Left external iliac artery stenting Status post anterior tibial angioplasty Status post herniorrhaphy Reported Medications Refer to EMR Allergies: Coded Allergies: No Known Allergies (Verified Allergy, Unknown, 03/12/17) Active Ordered Medications Refer to EMR Family History Cervical cancer (mother) Myocardial infarction (father) Social History Light alcohol use Denies history tobacco or illicit drug abuse Physical Exam Vital Signs Date Time Temp Pulse Resp B/P (MAP) Pulse Ox O2 Delivery O2 Flow Rate FiO2 03/17/17 12:00 97.6 90 17 148/63 (91) 97 03/17/17 08:42 98 Nasal Cannula 2.00 03/17/17 08:00 98.2 76 17 160/69 (99) 99 03/17/17 04:45 98.4 83 17 134/67 (89) 95 03/17/17 00:50 97.9 74 18 107/52 (70) 97 03/16/17 23:46 64 03/16/17 20:40 98.4 78 19 132/67 (88) 96 03/16/17 20:38 97 Nasal Cannula 2.00 03/16/17 20:37 77 03/16/17 16:02 96.3 74 17 146/64 (91) 96 Physical Exam GENERAL: This is a well-nourished, well-developed patient, in no apparent distress. SKIN: No rashes, ecchymoses or lesions. Cool and dry. HEAD: Atraumatic. Normocephalic. No temporal or scalp tenderness. EYES: Pupils equal round and reactive. Extraocular motions intact. No scleral icterus. No injection or drainage. ENT: Nose without bleeding, purulent drainage or septal hematoma. Throat without erythema, tonsillar hypertrophy or exudate. Uvula midline. Airway patent. NECK: Trachea midline. No JVD or lymphadenopathy. Supple, nontender, no meningeal signs. GASTROINTESTINAL: Abdomen soft, non-tender, nondistended. No hepato-splenomegaly , or palpable masses. No guarding. GENITOURINARY: Szymanski catheter in place and draining clear yellow urine. Bladder not distended MUSCULOSKELETAL: Extremities without clubbing, cyanosis, or edema. No joint tenderness, effusion, or edema noted. No calf tenderness. Negative Homans sign bilaterally. NEUROLOGICAL: Awake and alert. Cranial nerves II through XII intact. Motor and sensory grossly within normal limits. Five out of 5 muscle strength in all muscle groups. Normal speech. Lab results reviewed: Yes Laboratory Tests Test 03/17/17 08:23 Blood Urea Nitrogen 45 Creatinine 2.12 Random Glucose 114 Calcium Level 8.7 Sodium Level 138 Potassium Level 4.0 Chloride Level 102 Carbon Dioxide Level 29.0 Anion Gap 7 Estimat Glomerular Filtration Rate 30 Date/Time Source Procedure Growth Status 03/12/17 18:40 Blood Peripheral Aerobic Blood Culture - Final NO GROWTH IN 5 DAYS Complete 03/12/17 18:40 Blood Peripheral Anaerobic Blood Culture - Final NO GROWTH IN 5 DAYS Complete Result Diagram: 03/16/17 0630 03/17/17 0823 Imaging Last Impressions Head CT 03/15/17 0000 Signed Impressions: Service Date/Time: Wednesday, March 15, 2017 10:22 - CONCLUSION: 1. No acute intracranial abnormality. 2. Atrophy and chronic small vessel ischemic change. Juanito North Jr., MD Carotid Artery Ultrasound 03/15/17 0000 Signed Impressions: Service Date/Time: Wednesday, March 15, 2017 19:31 - CONCLUSION: Moderate visible plaque near the carotid bifurcations. CTA carotids would be better able to evaluate for significant carotid stenosis. Huber Olvera MD Brain MRI 03/15/17 0000 Signed Impressions: Service Date/Time: Wednesday, March 15, 2017 16:34 - CONCLUSION: Marked central and cortical atrophy with periventricular white matter changes otherwise negative. Regan Avalos MD FACR Abdomen X-Ray 03/15/17 0000 Signed Impressions: Service Date/Time: Wednesday, March 15, 2017 16:18 - CONCLUSION: No MRI contraindication. Regan Avalos MD FACR Chest X-Ray 03/12/17 0000 Signed Impressions: Service Date/Time: Sunday, March 12, 2017 13:01 - CONCLUSION: 1. Probable CHF. Harris Avalos MD Assessment and Plan Assessment and Plan Urologic impression: #1 history BPH #2 difficulty urinating likely related to progression of the BPH #3 status post placement of Szymanski catheter Recommendations: #1 maintaining Szymanski catheter to gravity drainage and discharge home with Szymanski to leg bag when medically stable #2 will require further outpatient workup to include cystoscopy which [facility] or the patient can schedule a follow up appointment to see me at my office. #3 will be available as needed during present hospitalization. Problem Qualifiers (1) Acute renal failure superimposed on stage 2 chronic kidney disease: Qualified Codes: N17.1 - Acute kidney failure with acute cortical necrosis; N18.2 - Chronic kidney disease, stage 2 (mild) (2) Altered mental status: Qualified Codes: R41.82 - Altered mental status, unspecified Derrell Jansen MD Mar 17, 2017 13:25
[2017-03-17] MEDS: SODIUM CHLOR 0.9% 1000 ML INJ 1,000 ML IV SCH ×2 (16:42→19:50)
[2017-03-17] MEDS: TAMSULOSIN HCL 0.4 MG CAP PO SCH (21:34)
[2017-03-17] MEDS: ATORVASTATIN 20 MG TAB PO SCH (21:34)
[2017-03-18 00:10] VITALS: PULSE 60
[2017-03-18] MEDS: PENICILLIN V POTASSIUM 500 MG TAB PO SCH ×3 (00:22→13:07)
[2017-03-18 00:45] VITALS: BP 166/70; PULSE 72; RESP 17; TEMP 98.3; O2SAT 99
[2017-03-18 04:10] VITALS: PULSE 64
[2017-03-18 04:45] VITALS: BP 150/67; PULSE 62; RESP 18; TEMP 98; O2SAT 96
[2017-03-18 08:00] VITALS: BP 150/67; PULSE 72; RESP 17; TEMP 96.8; O2SAT 96
[2017-03-18 08:59] LABS: BICARBONATE 31.1 MEQ/L (21.0-32.0); CALCIUM 8.9 MG/DL (8.5-10.1); CREATININE 1.63 MG/DL (0.60-1.30)
[2017-03-18] MEDS: SODIUM CHLORIDE 0.9% FLUSH 10 ML FLUSH IV FLUSH SCH (09:00)
[2017-03-18] MEDS: METOPROLOL TARTRATE 25 MG TAB PO SCH (09:56)
[2017-03-18] MEDS: CHLORHEXIDINE GLUCONATE 0.12% 15 ML CUP SWISH-SPIT SCH ×2 (09:56→13:08)
[2017-03-18] MEDS: DOCUSATE SODIUM 50 MG/SENNA 8.6 MG TAB PO SCH (09:57)
[2017-03-18] MEDS: PANTOPRAZOLE SOD 40 MG DELAYED RELEASE TAB PO SCH (09:57)
[2017-03-18 12:00] VITALS: BP 138/65; PULSE 76; RESP 17; TEMP 96.7; O2SAT 98
--- NOTE | 2017-03-18 12:26 | HHI.PR ---
Subjective Remarks feeling better no oral pain Objective Vitals Vital Signs Date Time Temp Pulse Resp B/P (MAP) Pulse Ox O2 Delivery O2 Flow Rate FiO2 03/18/17 08:00 96.8 72 17 150/67 (94) 96 03/18/17 04:45 98.0 62 18 150/67 (94) 96 03/18/17 04:10 64 03/18/17 00:45 98.3 72 17 166/70 (102) 99 03/18/17 00:10 60 03/17/17 21:32 94 Nasal Cannula 2.00 03/17/17 20:42 Nasal Cannula 2.00 03/17/17 20:40 98.5 64 18 126/59 (81) 94 03/17/17 20:00 89 03/17/17 16:00 96.4 81 17 125/66 (85) 100 I/O 03/17/17 03/17/17 03/17/17 03/18/17 03/18/17 03/18/17 07:00 15:00 23:00 07:00 15:00 23:00 Intake Total 804 ml 480 ml 360 ml 240 ml Output Total 1625 ml 300 ml 550 ml Balance 804 ml -1145 ml 60 ml -310 ml Intake Oral 240 ml 480 ml 360 ml 240 ml IV Total 564 ml Output Urine Total 1625 ml 300 ml 550 ml Bladder Scan Volume Amount 999 ml # Voids 2 # Bowel Movements 1 1 0 0 1 Result Diagram: 03/16/17 0630 03/18/17 0821 Imaging Last Impressions Head CT 03/15/17 0000 Signed Impressions: Service Date/Time: Wednesday, March 15, 2017 10:22 - CONCLUSION: 1. No acute intracranial abnormality. 2. Atrophy and chronic small vessel ischemic change. Juanito North Jr., MD Carotid Artery Ultrasound 03/15/17 0000 Signed Impressions: Service Date/Time: Wednesday, March 15, 2017 19:31 - CONCLUSION: Moderate visible plaque near the carotid bifurcations. CTA carotids would be better able to evaluate for significant carotid stenosis. Huber Olvera MD Brain MRI 03/15/17 0000 Signed Impressions: Service Date/Time: Wednesday, March 15, 2017 16:34 - CONCLUSION: Marked central and cortical atrophy with periventricular white matter changes otherwise negative. Regan Avalos MD FACR Abdomen X-Ray 03/15/17 0000 Signed Impressions: Service Date/Time: Wednesday, March 15, 2017 16:18 - CONCLUSION: No MRI contraindication. Regan Avalos MD FACR Chest X-Ray 03/12/17 0000 Signed Impressions: Service Date/Time: Sunday, March 12, 2017 13:01 - CONCLUSION: 1. Probable CHF. Harris Avalos MD Objective Remarks awake and alert, oriented x 3 no acute distress anicteric oral cavity- no exudates- left upper molar teeth decayed seems impacted/buried and embedded in the gum area - mild swelling around gum area- improved lower teeth rotten no nuchal rigidity no rales regular rhythm abdomen soft, nontender, bladder distended slightly extremities no edema A/P Problem List: (1) Acute respiratory failure with hypoxia and hypercapnia ICD Code: J96.01 - Acute respiratory failure with hypoxia; J96.02 - Acute respiratory failure with hypercapnia (2) Acute renal failure superimposed on stage 2 chronic kidney disease ICD Code: N17.9 - Acute kidney failure, unspecified; N18.2 - Chronic kidney disease, stage 2 (mild) (3) Altered mental status ICD Code: R41.82 - Altered mental status, unspecified Status: Acute Assessment and Plan 81 years old male Acute suspected toxic encephalopathy on admission-RESOLVed - secondary to pain meds - he now admits that he took more than usual of his pain meds for his persistent dental pain -CT head with only chronic brain changes. -EEG without epileptiform activity. Ammonia within normal limits. = 03/15. Acute respiratory failure with hypoxia and hypercapnia- likey from overmedicated with pain meds.- REsolved = Oxygen as needed to keep sats over 92. Respiratory status improved. Continue to monitor closely. Dental pain/infection- Very Poor dentition- left upper moral with mild gingival swelling- pain persistebnt - consult Oral surgery - on further discussion with him- was seen by a dentist and was told that he needs an Oral surgeon - Lortab prn for pain q 8. No NSAIDs with MARQUITA - antibiotics- change to PenVK 500 mg po qid - spoke with oral surgery- Dr. Martino- ff up with him in his office [phone] - and they will take films and manage this- Acute kidney injury.likely with undelrying CKI- now creatinine increased likely from obstructive uropathy component- Improved wirh kraft placement -Creatinine trending down - keep foley0- OP ff up with Dr. Jansen for urological evaluation Acute urinary retention History of BPH.- now symptoamtic -Continue home tamsulosin. - keep kraft - OP ff up with Dr. Jansen for urologic evaluation //Hypertension. -Monitor blood pressure and adjust medications as necessary. - restat Amlodipine at 2.5 mg po daily //Hyperlipidemia. Chronic. Continue home statin. //GERD. Chronic. = Continue PPI. //Peripheral artery disease. With history of external iliac artery stent in 2010. = Continue home Plavix.- will hold in the event that Oral surgeon agrees to do surgery History of COPD - spiriva 1 puff daily PT/eval and treat DC planning- SNF today Problem Qualifiers (1) Altered mental status: Qualified Codes: R41.82 - Altered mental status, unspecified Nathanael Benito MD Mar 18, 2017 12:26
--- NOTE | 2017-03-18 12:32 | HHI.DS ---
Discharge Summary Admission Date Mar 12, 2017 at 13:03 Discharge Date: Mar 18, 2017 Admitting Diagnosis altered mental status (1) Acute respiratory failure with hypoxia and hypercapnia ICD Code: J96.01 - Acute respiratory failure with hypoxia; J96.02 - Acute respiratory failure with hypercapnia Diagnosis: Principal (2) Acute renal failure superimposed on stage 2 chronic kidney disease ICD Code: N17.9 - Acute kidney failure, unspecified; N18.2 - Chronic kidney disease, stage 2 (mild) Diagnosis: Principal (3) Altered mental status ICD Code: R41.82 - Altered mental status, unspecified Diagnosis: Principal Status: Acute Procedures none Brief History - From Admission Is a 81 year-old male with severe altered mental status, obtundation and cannot give any information at all. Information was taken from medical records which appears to be dating back to 2010. Records indicate that he does have diabetes, anemia, peripheral artery disease, hyperlipidemia, chronic obstructive pulmonary disease, hypertension, history GI bleed, chronic kidney disease, enlarged prostate. All information from the ER physician indicates the patient was found down this morning and was unresponsive. He was acting normal last night. Patient was given a few doses of Narcan in the emergency department with little response. ER physician indicates that the patient was having waxing and waning of his mental status. He would sit up and we'll communicate minimally. However when I saw the patient he was given slightly unresponsive, he would not respond or talk. minimal respond to painful stimuli. ER physician planning on placing the patient on BiPAP for respiratory support. Abnormal findings on workup show acute renal failure on chronic kidney disease, chest x-ray shows probable CHF. Drug screen does show positive opiates. Otherwise workup is unremarkable. CBC/BMP: 03/16/17 0630 03/18/17 0821 Significant Findings Laboratory Tests Test 03/16/17 06:30 03/17/17 08:23 03/18/17 08:21 Neutrophils (%) (Auto) 82.6 % (16.0-70.0) Lymphocytes # (Auto) 0.8 TH/MM3 (1.0-4.8) Blood Urea Nitrogen 32 MG/DL (7-18) 45 MG/DL (7-18) 31 MG/DL (7-18) Creatinine 1.53 MG/DL (0.60-1.30) 2.12 MG/DL (0.60-1.30) 1.63 MG/DL (0.60-1.30) Random Glucose 136 MG/DL (74-106) 114 MG/DL (74-106) Albumin 3.2 GM/DL (3.4-5.0) Estimat Glomerular Filtration Rate 44 ML/MIN (>89) 30 ML/MIN (>89) 41 ML/MIN (>89) Imaging Last Impressions Head CT 03/15/17 0000 Signed Impressions: Service Date/Time: Wednesday, March 15, 2017 10:22 - CONCLUSION: 1. No acute intracranial abnormality. 2. Atrophy and chronic small vessel ischemic change. Juanito North Jr., MD Carotid Artery Ultrasound 03/15/17 0000 Signed Impressions: Service Date/Time: Wednesday, March 15, 2017 19:31 - CONCLUSION: Moderate visible plaque near the carotid bifurcations. CTA carotids would be better able to evaluate for significant carotid stenosis. Huber Olvera MD Brain MRI 03/15/17 0000 Signed Impressions: Service Date/Time: Wednesday, March 15, 2017 16:34 - CONCLUSION: Marked central and cortical atrophy with periventricular white matter changes otherwise negative. Regan Avalos MD FACR Abdomen X-Ray 03/15/17 0000 Signed Impressions: Service Date/Time: Wednesday, March 15, 2017 16:18 - CONCLUSION: No MRI contraindication. Regan Avalos MD FACR Chest X-Ray 03/12/17 0000 Signed Impressions: Service Date/Time: Sunday, March 12, 2017 13:01 - CONCLUSION: 1. Probable CHF. Harris Avalos MD PE at Discharge awake and alert, oriented x 3 no acute distress anicteric oral cavity- no exudates- left upper molar teeth decayed seems impacted/buried and embedded in the gum area - mild swelling around gum area- improved lower teeth rotten no nuchal rigidity no rales regular rhythm abdomen soft, nontender, kraft in place extremities no edema Pt update on day of discharge awake and alert, oriented x [address]- clear urine taking po well Hospital Course 81 years old male Acute suspected toxic encephalopathy on admission-RESOLVed - secondary to pain meds - he now admits that he took more than usual of his pain meds for his persistent dental pain -CT head with only chronic brain changes. -EEG without epileptiform activity. Ammonia within normal limits. = 03/15. Acute respiratory failure with hypoxia and hypercapnia- likey from overmedicated with pain meds.- REsolved = Oxygen as needed to keep sats over 92. Respiratory status improved. Continue to monitor closely. Dental pain/infection- Very Poor dentition- left upper moral with mild gingival swelling- pain persistebnt - consult Oral surgery - on further discussion with him- was seen by a dentist and was told that he needs an Oral surgeon - Lortab prn for pain q 8. No NSAIDs with MARQUITA - antibiotics- change to PenVK 500 mg po qid - spoke with oral surgery- Dr. Martino- ff up with him in his office [phone] - and they will take films and manage this- Acute kidney injury.likely with undelrying CKI- now creatinine increased likely from obstructive uropathy component- Improved wirh kraft placement -Creatinine trending down - keep foley0- OP ff up with Dr. Jansen for urological evaluation Acute urinary retention History of BPH.- -Continue home tamsulosin. - keep kraft- placed 03/17 - OP ff up with Dr. Jansen for urologic evaluation //Hypertension. -Monitor blood pressure and adjust medications as necessary. - restat Amlodipine 5 mg po daily //Hyperlipidemia. Chronic. Continue home statin. //GERD. Chronic. = Continue PPI. //Peripheral artery disease. With history of external iliac artery stent in 2010. = Continue Plavix.- History of COPD - spiriva 1 puff daily PT/eval and treat DC planning- SNF today Pt Condition on Discharge: Stable Discharge Disposition: Discharge to SNF Discharge Time: > 30 minutes Discharge Instructions DIET: Follow Instructions for: Heart Healthy Diet Speech Therapy-Diet Recommends: Mechanical Soft Additional Diet Instructions: due to por dentition Activities you can perform: Weight Bearing as Shobha Activities to Avoid: Strenuous Activity Other Activity Instructions: caution with kraft bag please caution with giving narcotics- monitor MS Follow up Referrals: Oral Maxillary Surgery - 2 Days with [facility] - 1 Week with Derrell Jansen MD, Alfea M. MD Mar 18, 2017 12:32
[2017-03-18] MEDS ORDERED: HYDR-3516 PO (12:37)
[2017-03-18] MEDS ORDERED: PENI500T PO (12:37)
[2017-03-18] MEDS: SODIUM CHLOR 0.9% 1000 ML INJ 1,000 ML IV SCH ×2 (12:45→15:50)
[2017-03-18] MEDS ORDERED: Chlorhexidine 0.12% Liq SWISH-SPIT (14:01)
[2017-03-19] MEDS ORDERED: amLODIPine BESYLATE 5 MG TAB PO SCH (09:00)
== END 2017-03-18 16:41 | DRG 917 ==
LOC: PHED 10:11 → PHEDA 13:03 → HIMN 17:05 → N06A 03-14 09:51
PROVIDERS: ADMIT Internal Medicine; ATTEND Internal Medicine
PROC: 5A09357 Assistance with Respiratory Ventilation, Less than 24 Consecutive Hours, Continuous Positive Airway Pressure (ICD-10-PCS; principal; 2017-03-12)
DX: T40.601A Poisoning by unspecified narcotics, accidental (unintentional), initial encounter (principal); J96.01 Acute respiratory failure with hypoxia; N17.9 Acute kidney failure, unspecified; G92 Toxic encephalopathy; J96.02 Acute respiratory failure with hypercapnia; N13.8 Other obstructive and reflux uropathy; I12.9 Hypertensive chronic kidney disease with stage 1 through stage 4 chronic kidney disease, or unspecified chronic kidney disease; N18.2 Chronic kidney disease, stage 2 (mild); N40.1 Benign prostatic hyperplasia with lower urinary tract symptoms; R33.8 Other retention of urine; K08.89 Other specified disorders of teeth and supporting structures; E78.5 Hyperlipidemia, unspecified; K21.9 Gastro-esophageal reflux disease without esophagitis; E66.9 Obesity, unspecified; Z68.29 Body mass index [BMI] 29.0-29.9, adult; E11.22 Type 2 diabetes mellitus with diabetic chronic kidney disease; E11.51 Type 2 diabetes mellitus with diabetic peripheral angiopathy without gangrene; J44.9 Chronic obstructive pulmonary disease, unspecified
CPT/HCPCS: 36600; 70450; 70551; 71045; 74018; 80048; 80053; 80069; 80307; 81001; 82140; 82607; 82746; 82805; 82948; 83605; 83735; 83880; 84100; 84443; 84484; 85025; 85610; 85652; 85730; 86592; 87040; 87641; 93005; 93880; 94002; 94003; 94640; 94664; 95819; 96361; 96374; J0360; J1815; J1940; J2060; J2310; J2930; J7030; J7040

== ENCOUNTER 2017-08-12 16:53 | Inpatient (IN) | payer MEDICAID, MEDICARE, OTHER ==
[~2017-08-12] VITALS: Ht 175.3 cm; Wt 94.6 kg
[~2017-08-12 16:53] MED LIST changes: -ACIDOPHILUS PO; -ALBU0.086 INH; -ALPR-138 PO; -ALUM5LIQ PO; -AMLO5TAB96 PO; +Albuterol-Ipratropium Neb NEB; +BACL10TA PO; +CARV3.125 PO; +CITA20TA4 PO; -CLOP75 PO; -DUONSOL2; -FERR324T4 PO; -FOLI20CA PO; +FURO1TAB62 PO; -FURO1TAB93 PO; +HYDR-3516 PO; +LEVO500T8 PO; -LEXA10TA PO; +LIPI20TA PO; +LISI10TA3 PO; -LORT7.5T3 PO; +LOTR1CRE TOPICAL; -MECL25 PO; +Nystatin Powder TOPICAL; +OMEP40CA2 PO; +PLAV75TA29 PO; -POTA-243 PO; +PRED10PA PO; -PRIL40CA PO; -SENN15TA2 PO; -SIMV20TA OR; -SITA100 PO; -TAB-TAB PO; +TAMS0.4C4 PO; -TAMS0.4C67 PO; -THIA50CA PO
[2017-08-12 17:06] VITALS: BP 131/57; PULSE 87; RESP 20; TEMP 97.8; O2SAT 87
--- NOTE | 2017-08-12 17:08 | PD ---
Physical Exam Date Seen by Provider: Aug 12, 2017 Narrative This is a snf patient is currently being treated for UTI he was sent to us by [facility] following a fall. We do not know whether or not the fall was witnessed. The patient reportedly struck his head. He also reportedly has an altered mental status. Data Data Orders Orders Complete Blood Count With Diff (08/12/17 17:04) Comprehensive Metabolic Panel (08/12/17 17:04) Blood Culture (08/12/17 17:04) Urinalysis - C+S If Indicated (08/12/17 17:04) Chest, Single Ap (08/12/17 17:04) Ct Brain W/O Iv Contrast(Rout) (08/12/17 17:04) Iv Access Insert/Monitor (08/12/17 17:04) Ecg Monitoring (08/12/17 17:04) Oximetry (08/12/17 17:04) Ct Cerv Spine W/O Contrast (08/12/17 ) Lactic Acid Sepsis Protocol (08/12/17 17:04) MDM Supervised Visit with RAJENDRA: Yes Narrative Course I, Dr. Nicolas, have reviewed the advance practice practitioner's documentation and am in agreement, met with the patient face to face, made the diagnosis, and the medical decision making was done by me. *My assessment and Findings: Patient presents to us fully immobilized. He is able to speak intelligibly. He is noted to have multiple bruises. He has a Szymanski catheter in place. See Uzma Lees note for a more detailed H&P, final diagnosis and disposition Nidhi Nicolas MD Aug 12, 2017 17:08
[2017-08-12] MEDS ORDERED: SULF1TAB23 PO (17:09)
[2017-08-12] MEDS ORDERED: MILKSUS PO (17:09)
[2017-08-12] MEDS ORDERED: METO-309 PO (17:09)
[2017-08-12 17:12] VITALS: BP 131/57; PULSE 90
--- NOTE | 2017-08-12 17:28 | PD ---
HPI Chief Complaint: Fall Time Seen by Provider: 17:04 Travel History International Travel<30 days: No Contact w/Intl Traveler<30days: No Traveled to known affect area: No History of Present Illness HPI 81-year-old male the presents to the ED for evaluation of fall as well as altered mental status. Apparently patient lives in an [facility] and has been treated for UTI with Bactrim. Patient has an indwelling Szymanski secondary to prostate issues. Per report that I was given by ED nurse who spoke with the nurse at the facility where his from apparently patient had a fall today. Unclear if it was witnessed. Patient complained of head pain. Per ambulance when they were there patient was really not responding to them much but when the put him on the truck they noted that he started speaking he was answering some questions. Patient complains of no pain other than to the back of his head. He was put in a cervical collar and backboard. Apparently injury occurred around 8:00 this morning. Per report given by [facility] patient is not in blood thinners but per his medical records he does apparently take Plavix. Heparin is being treated for a wound to his right arm for MRSA with antibiotics as well. He has no known allergies. He cannot really tell me how much pain he has. Patient himself is somewhat of a poor historian and unclear what his baseline is. PFSH Past Medical History Hx Anticoagulant Therapy: Yes Anemia: Yes Arthritis: Yes Blood Disorders: Yes (THROMBOCYTOPENIA) Anxiety: Yes Cancer: Yes (YES BUT NOT SURE WHERE ???) Cardiovascular Problems: Yes (PERIPHERAL ARTERIAL DISEASE/PVD) High Cholesterol: Yes Congestive Heart Failure: Yes COPD: Yes Diabetes: Yes Patient Takes Glucophage: No Diminished Hearing: No Endocrine: Yes Gastrointestinal Disorders: Yes (GIBLEED) Genitourinary: Yes Hypertension: Yes Immune Disorder: No Implanted Vascular Access Dvce: Yes Musculoskeletal: Yes Neurologic: Yes Psychiatric: Yes Reproductive: No Respiratory: Yes Integumentary: Yes ( L FOOT ULCER) Immunizations Current: No Renal Failure: Yes (CHRONIC) Past Surgical History Body Medical Devices: STENT L EXTERNAL ILIAC Cardiac Surgery: Yes Eye Surgery: Yes Genitourinary Surgery: Yes (TESTICLE) Other Surgery: Yes (08/29/2010-L EXT ILIAC ARTERY STENT-L/SFA AND ANTERIOR TIBIAL ANGIOPLASTY ) Social History Alcohol Use: Yes (Occ.) Tobacco Use: No Substance Use: No Allergies-Medications (Allergen,Severity, Reaction): Coded Allergies: No Known Allergies (Verified Allergy, Unknown, 08/12/17) Reported Meds & Prescriptions Reported Meds & Active Scripts Active Levofloxacin 500 Mg Tablet 500 Mg PO DAILY Prednisone (21) 10 mg tab Dose Pack (Prednisone) 10 Mg Pack 10 Mg PO DIRECTED Lasix (Furosemide) 20 Mg Tab 20 Mg PO DAILY [Nystatin Powder] 15 APPLIC/15 GM Powd 1 Applic TOPICAL Q12HR Coreg (Carvedilol) 3.125 Mg Tab 3.125 Mg PO BID Lisinopril 10 Mg Tab 10 Mg PO DAILY [Albuterol-Ipratropium Neb] 1 AMPULE Nebu 1 Ampule NEB Q6HR WHILE AWAKE NEB Lotrimin AF Topical (Clotrimazole) 1% Cream 1 Applic TOPICAL BID 10 Days Hydrocodone-Acetamin 5-325 mg (Hydrocodone/Acetaminophen) 5 Mg-325 Mg Tablet 1 Tab PO Q8HR PRN Reported Sulfamethoxazole-Trimethoprim 800-160 Mg Tab 1 Tab PO BID Milk of Magnesia Liq (Magnesium Hydroxide) 400 Mg/5 Ml Susp 30 Ml PO DAILY PRN Lopressor (Metoprolol Tartrate) 50 Mg Tab 25 Mg PO BID Baclofen 10 Mg Tab 10 Mg PO Q8HR Omeprazole 40 Mg Cap 40 Mg PO DAILY Lipitor (Atorvastatin Calcium) 20 Mg Tab 20 Mg PO HS Citalopram (Citalopram Hydrobromide) 20 Mg Tab 20 Mg PO DAILY Plavix (Clopidogrel Bisulfate) 75 Mg Tab 75 Mg PO DAILY Tamsulosin (Tamsulosin HCl) 0.4 Mg Cap 0.4 Mg PO HS Review of Systems ROS Limitations: Altered Mental Status Except as stated in HPI: all other systems reviewed are Neg Physical Exam Exam Limitations: Altered Mental Status Narrative GENERAL: SKIN: Warm and dry. HEAD: Atraumatic. Normocephalic. EYES: Pupils equal and round. No scleral icterus. No injection or drainage. ENT: No nasal bleeding or discharge. Mucous membranes pink and moist. Tongue is midline. No uvula deviation. NECK: Trachea midline. No JVD. CARDIOVASCULAR: Regular rate and rhythm. No murmurs, S3, S4. RESPIRATORY: No accessory muscle use. Clear to auscultation. Breath sounds equal bilaterally. GASTROINTESTINAL: Abdomen soft, non-tender, nondistended. Hepatic and splenic margins not palpable. MUSCULOSKELETAL: Extremities without clubbing, cyanosis, or edema. No obvious deformities. Full range of motion of the upper and lower extremities bilaterally. 2+ pulses bilaterally. Patient does have multiple bruises that appear to be old especially on the arms bilaterally. No other signs of injuries noted. No lumbar, thoracic, cervical spine tenderness to palpation noted. Patient was seen with a backboard and cervical collar noted. Cervical collar was left in place. NEUROLOGICAL: Awake and alert and oriented to person. No obvious cranial nerve deficits. Motor grossly within normal limits. Five out of 5 muscle strength in the arms and legs. Normal speech. PSYCHIATRIC: Appropriate mood and affect; insight and judgment normal. Data Data Last Documented VS Vital Signs Date Time Temp Pulse Resp B/P (MAP) Pulse Ox O2 Delivery O2 Flow Rate FiO2 08/12/17 17:12 90 131/57 (81) 08/12/17 17:06 97.8 20 87 Orders Orders Complete Blood Count With Diff (08/12/17 17:04) Comprehensive Metabolic Panel (08/12/17 17:04) Blood Culture (08/12/17 17:04) Urinalysis - C+S If Indicated (08/12/17 17:04) Chest, Single Ap (08/12/17 17:04) Ct Brain W/O Iv Contrast(Rout) (08/12/17 17:04) Iv Access Insert/Monitor (08/12/17 17:04) Ecg Monitoring (08/12/17 17:04) Oximetry (08/12/17 17:04) Ct Cerv Spine W/O Contrast (08/12/17 ) Lactic Acid Sepsis Protocol (08/12/17 17:04) Coag Profile (08/12/17 17:11) Sodium Chlorid 0.9% 500 Ml Inj (Ns 500 M (08/12/17 18:00) Urine Culture (08/12/17 17:17) Ceftriaxone Inj (Rocephin Inj) (08/12/17 18:30) Admit Order (Ed Use Only) (08/12/17 18:32) Labs Laboratory Tests Test 08/12/17 17:17 White Blood Count 8.6 TH/MM3 Red Blood Count 4.14 MIL/MM3 Hemoglobin 12.5 GM/DL Hematocrit 37.9 % Mean Corpuscular Volume 91.7 FL Mean Corpuscular Hemoglobin 30.2 PG Mean Corpuscular Hemoglobin Concent 32.9 % Red Cell Distribution Width 15.4 % Platelet Count 163 TH/MM3 Mean Platelet Volume 10.3 FL Neutrophils (%) (Auto) 83.6 % Lymphocytes (%) (Auto) 9.6 % Monocytes (%) (Auto) 6.5 % Eosinophils (%) (Auto) 0.0 % Basophils (%) (Auto) 0.3 % Neutrophils # (Auto) 7.2 TH/MM3 Lymphocytes # (Auto) 0.8 TH/MM3 Monocytes # (Auto) 0.6 TH/MM3 Eosinophils # (Auto) 0.0 TH/MM3 Basophils # (Auto) 0.0 TH/MM3 CBC Comment DIFF FINAL Differential Comment Prothrombin Time 11.3 SEC Prothromb Time International Ratio 1.1 RATIO Activated Partial Thromboplast Time 24.6 SEC Urine Color YELLOW Urine Turbidity CLOUDY Urine pH 6.0 Urine Specific [place] 1.016 Urine Protein 100 mg/dL Urine Glucose (UA) NEG mg/dL Urine Ketones TRACE mg/dL Urine Occult Blood SMALL Urine Nitrite NEG Urine Bilirubin NEG Urine Urobilinogen 4.0 OR GREATER mg/dL Urine Leukocyte Esterase LARGE Urine RBC 20 /hpf Urine WBC /hpf Urine Squamous Epithelial Cells <1 /hpf Urine Bacteria MANY /hpf Urine Hyaline Casts 13 /lpf Urine Mucus FEW /lpf Microscopic Urinalysis Comment CULTURE INDICATED Blood Urea Nitrogen 60 MG/DL Creatinine 4.01 MG/DL Random Glucose 105 MG/DL Total Protein 8.4 GM/DL Albumin 4.2 GM/DL Calcium Level 9.2 MG/DL Alkaline Phosphatase 108 U/L Aspartate Amino Transf (AST/SGOT) 36 U/L Alanine Aminotransferase (ALT/SGPT) 19 U/L Total Bilirubin 0.5 MG/DL Sodium Level 142 MEQ/L Potassium Level 5.1 MEQ/L Chloride Level 105 MEQ/L Carbon Dioxide Level 25.3 MEQ/L Anion Gap 12 MEQ/L Estimat Glomerular Filtration Rate 15 ML/MIN Lactic Acid Level 2.8 mmol/L [facility] Medical Decision Making Medical Screen Exam Complete: Yes Emergency Medical Condition: Yes Medical Record Reviewed: Yes Interpretation(s) CBC & BMP Diagram 08/12/17 17:17 Total Protein 8.4 H, Albumin 4.2, Calcium Level 9.2, Alkaline Phosphatase 108, Aspartate Amino Transf (AST/SGOT) 36, Alanine Aminotransferase (ALT/SGPT) 19, Total Bilirubin 0.[address] 08/12/17 1704 Signed Impressions: CONCLUSION: 1. No acute intracranial abnormality identified. The exam does demonstrate mil d cortical atrophy and microvascular ischemic demyelinative change.. Chest X-Ray 08/12/17 1704 Signed Impressions: CONCLUSION: Suspected minimal atelectasis and possible minimal effusions. Cervical Spine CT 08/12/17 0000 Signed Impressions: CONCLUSION: 1. Study is degraded by motion artifact. 2. No gross fracture or dislocation. 3. Degenerative changes. UA shows signs of UTI Differential Diagnosis Fracture versus head injury versus altered mental status versus metabolic encephalopathy versus UTI versus sepsis Narrative Course 81-year-old male the presents to the ED for evaluation of altered mental status after a fall. Patient was properly examined and was found to have signs and symptoms of unclear etiology with deafly concerning for head injury. Patient apparently does take Plavix per his medical records. Labs and imaging order. Labs and imaging showed what appears to be worsening kidney function, UTI and lactic acidosis. Otherwise no sign of acute disease. Patient does have CHF and takes lasix and CXR did showed mild effusions. Will give fluids slowly. Case discussed with my attending Dr Nicolas who agrees with plan for admission. Case discussed with Dr Green who agrees with admission and will admit to his service. He wanted me to put some orders including consult to ID, consult to nephrology and telemtry. This were ordered by me. Sepsis Criteria Sepsis Criteria (SIRS+source): Infect source susp/known Severe Sepsis (+one): Lactate >2 Diagnosis Primary Impression: Altered mental status Qualified Codes: R41.82 - Altered mental status, unspecified Additional Impressions: MARQUITA (acute kidney injury) UTI (urinary tract infection) Qualified Codes: N30.00 - Acute cystitis without hematuria Failure of outpatient treatment Head injury, acute Qualified Codes: S09.90XA - Unspecified injury of head, initial encounter Admitting Information Admitting Physician Requests: Admit Romel Louise Aug 12, 2017 17:28
[2017-08-12 17:37] LABS: AUTOMATED NEUTROPHIL # 7.2 TH/MM3 (1.8-7.7); BASOPHIL % 0.3 % (0.0-2.0); HEMATOCRIT 37.9 % (39.0-51.0); HEMOGLOBIN 12.5 GM/DL (13.0-17.0); LYMPH % 9.6 % (9.0-44.0); LYMPHOCYTE # 0.8 TH/MM3 (1.0-4.8); MEAN CELL VOLUME 91.7 FL (80.0-100.0); MEAN CORPUSCULAR HEMOGLOBIN 30.2 PG (27.0-34.0); MEAN CORPUSCULAR HGB CONC 32.9 % (32.0-36.0); MEAN PLATELET VOLUME 10.3 FL (7.0-11.0); MONO % 6.5 % (0.0-8.0); MONOCYTE # 0.6 TH/MM3 (0-0.9); NEUT % 83.6 % (16.0-70.0); PLATELET COUNT 163 TH/MM3 (150-450); RED BLOOD COUNT 4.14 MIL/MM3 (4.50-5.90); RED CELL DISTRIBUTION WIDTH 15.4 % (11.6-17.2); WHITE BLOOD COUNT 8.6 TH/MM3 (4.0-11.0)
--- NOTE | 2017-08-12 17:47 | RADRPT ---
EXAM DATE: 08/12/2017 5:44 PM EDT AGE/SEX: 81 years / Male INDICATIONS: Cough, trauma. CLINICAL DATA: This is the patient's initial encounter. Patient reports that signs and symptoms have been present for 1 day and indicates a pain score of Nonresponsive. MEDICAL/SURGICAL HISTORY: Non-responsive. Non-responsive. COMPARISON: [facility], CHEST SINGLE AP, 04/26/2017. . FINDINGS: The heart size is normal. There is be minimal suspected atelectasis at the lung bases. There is blun ting of the costophrenic angles which may be related to minimal effusions. CONCLUSION: Suspected minimal atelectasis and possible minimal effusions. Electronically signed by: Fito Chavez MD 08/12/2017 5:46 PM EDT
--- NOTE | 2017-08-12 17:50 | RADRPT ---
EXAM DATE: 08/12/2017 5:42 PM EDT AGE/SEX: 81 years / Male INDICATIONS: FALL TODAY CLINICAL DATA: This is the patient's initial encounter. Patient reports that signs and symptoms have been present for 1 day and indicates a pain score of 3/10. MEDICAL/SURGICAL HISTORY: Cardiovascular disease. Hypertension. Chronic obstructive pulmonary dis ease. DIABETES,RENAL DISEASE,ANEMIA None. RADIATION DOSE: 64.63 CTDI (mGy) COMPARISON: [facility] [place], [place], CT BRAIN W/O CONTRAST, 03/15/2017. . TECHNIQUE: CT of the head without contrast. Using automated exposure control and adjustment of the mA and/or kV according to patient size, radiation dose was kept as low as reasonably achievable to ob tain optimal diagnostic quality images. DICOM format image data is available electronically for revi ew and comparison. FINDINGS: Cerebrum: The ventricles are normal for age. There is mild cortical atrophy and microvascular ischem ic demyelinative change. No evidence of midline shift, mass lesion, hemorrhage or acute infarction. No extraaxial fluid collections are seen. Posterior Fossa: The cerebellum and brainstem are intact. The 4th ventricle is midline. The cerebe llopontine angle is unremarkable. Extracranial: The visualized portion of the orbits is intact. Skull: The calvaria is intact. No evidence of skull fracture. CONCLUSION: 1. No acute intracranial abnormality identified. The exam does demonstrate mild cortical atrophy and microvascular ischemic demyelinative change.. Electronically signed by: Harris Avalos MD 08/12/2017 5:49 PM EDT
[2017-08-12 17:56] LABS: INTERNATIONAL NORMALIZED RATIO 1.1 RATIO; PROTHROMBIN TIME - PATIENT 11.3 SEC (9.8-11.6)
[2017-08-12 17:57] LABS: ALBUMIN 4.2 GM/DL (3.4-5.0); ALT (GPT) 19 U/L (12-78); AST (GOT) 36 U/L (15-37); BICARBONATE 25.3 MEQ/L (21.0-32.0); BLOOD UREA NITROGEN 60 MG/DL (7-18); CALCIUM 9.2 MG/DL (8.5-10.1); CHLORIDE 105 MEQ/L (98-107); CREATININE 4.01 MG/DL (0.60-1.30); GLOMERULAR FILTRATION RATE 15 ML/MIN (>89); GLUCOSE,RANDOM 105 MG/DL (74-106); SODIUM (NA) 142 MEQ/L (136-145)
[2017-08-12 17:59] LABS: ALKALINE PHOSPHATASE 108 U/L (45-117); TOTAL BILIRUBIN ADULT 0.5 MG/DL (0.2-1.0); TOTAL PROTEIN 8.4 GM/DL (6.4-8.2)
[2017-08-12 18:00] LABS: BACTERIA, URINE MANY /hpf; BILIRUBIN, URINE NEG (NEG); BLOOD, URINE SMALL (NEG); GLUCOSE,URINE NEG (NEG); HYALINE CAST, URINE 13 /lpf (RARE); KETONE, URINE TRACE mg/dL (NEG); MUCUS URINE FEW /lpf (OCC); NITRITE,URINE NEG (NEG); SQUAMOUS EPITHELIAL CELL URINE <1 /hpf (0-5); URINE COLOR YELLOW (YELLW/STRAW); URINE LEUKOCYTE ESTERASE LARGE (NEG)
[2017-08-12] MEDS ORDERED: SODIUM CHLORID 0.9% 500 ML INJ 500 ML IV ONE (18:00)
--- NOTE | 2017-08-12 18:17 | RADRPT ---
EXAM DATE: 08/12/2017 6:00 PM EDT AGE/SEX: 81 years / Male INDICATIONS: Fall today CLINICAL DATA: This is the patient's initial encounter. Patient reports that signs and symptoms have been present for 1 day and indicates a pain score of 3/10. MEDICAL/SURGICAL HISTORY: Cardiovascular disease. Hypertension. Chronic obstructive pulmonary disease. Renal disease,diabetes,anemia None. RADIATION DOSE: 23.74 CTDI (mGy) COMPARISON: . TECHNIQUE: Contiguous axial images were obtained using helical multirow detector technique. The vol umetric data was post-processed with multiplanar reconstruction in oblique axial, sagittal, and coron al planes. Using automated exposure control and adjustment of the mA and/or kV according to patient s ize, radiation dose was kept as low as reasonably achievable to obtain optimal diagnostic quality kevan ges. DICOM format image data is available electronically for review and comparison. FINDINGS: The study is motion degraded. Vertebrae: Normal vertebral body height. Alignment: Normal. No subluxation. Pronounced calcified atherosclerotic plaque of the carotid arteries bilaterally. 1.6 cm low-density n odule involving the right lobe of the thyroid. C2-3: The bony spinal canal is normal in size. No evidence of disc bulge or herniation. The neural foramina are bilaterally patent. C3-4: A broad-based disc bulge eccentric to the left narrows the left lateral recess. Bony uncoverte bral hypertrophy contributes to moderate left and mild right neural foraminal narrowing. Central darien l is patent otherwise. C4-5: The bony spinal canal is normal in size. No evidence of disc bulge or herniation. The neural foramina are bilaterally patent. C5-6: The bony spinal canal is normal in size. No evidence of disc bulge or herniation. . Bony unc overtebral hypertrophy generates moderate bilateral neural foraminal narrowing. C6-7: The bony spinal canal is normal in size. No evidence of disc bulge or herniation. Bony uncove rtebral hypertrophy generates moderate bilateral neural foraminal narrowing.. C7-T1: The bony spinal canal is normal in size. No evidence of disc bulge or herniation. The neura l foramina are bilaterally patent. CONCLUSION: 1. Study is degraded by motion artifact. 2. No gross fracture or dislocation. 3. Degenerative changes. Electronically signed by: Juanito North MD 08/12/2017 6:15 PM EDT
[2017-08-12 18:23] LABS: LACTIC ACID SEPSIS PROTOCOL 2.8 mmol/L (0.4-2.0)
[2017-08-12] MEDS ORDERED: cefTRIAXone INJ 1,000 MG in SODIUM CHLORIDE 0.9% INJ 100 ML IV ONE (18:30)
[2017-08-12 20:00] VITALS: BP 127/80; PULSE 81; RESP 18; TEMP 98.1; O2SAT 96
[2017-08-12] MEDS ORDERED: MAGNESIUM HYDROXIDE SUSP 30 ML CUP PO PRN (20:15)
[2017-08-12 20:29] VITALS: BP 160/72; PULSE 79; RESP 18; O2SAT 95; O2SAT 97
[2017-08-12] MEDS ORDERED: SODIUM CHLORIDE 0.9% FLUSH 10 ML FLUSH IV FLUSH PRN (20:30)
[2017-08-12] MEDS ORDERED: ACETAMINOPHEN 325 MG TAB PO PRN (20:30)
[2017-08-12] MEDS ORDERED: BISACODYL 10 MG SUPP RECTAL PRN (20:30)
[2017-08-12] MEDS ORDERED: NALOXONE HCL 0.4 MG/ML AMP IV PUSH PRN (20:30)
[2017-08-12] MEDS ORDERED: SULFAMETHOXAZOLE-TRIMETHOPRIM DS 800-160 MG TAB PO SCH ×2 (21:00→22:00)
[2017-08-12] MEDS ORDERED: NYSTATIN TOPICAL SCH (21:00)
[2017-08-12] MEDS: SODIUM CHLOR 0.45% 1000 ML INJ 1,000 ML IV SCH (21:00)
[2017-08-12] MEDS: CLOTRIMAZOLE 1% CREAM 15 GM TOPICAL SCH (21:00)
[2017-08-12] MEDS ORDERED: NYSTATIN 100,000 U/GM PWD 15 GM BTL TOPICAL SCH (21:30)
[2017-08-12] MEDS ORDERED: PILL SPLITTER OTHER PRN (21:45)
[2017-08-12] MEDS ORDERED: BACLOFEN 10 MG TAB PO SCH (22:00)
[2017-08-13] VITALS (9 sets, daily range): BP systolic 93–159; BP diastolic 54–87; PULSE 57–95; RESP 16–20; TEMP 97.3–98.1; O2SAT 92–99
[2017-08-13] MEDS: CARVEDILOL 3.125 MG TAB PO SCH ×3 (00:09→20:11)
[2017-08-13] MEDS: TAMSULOSIN HCL 0.4 MG CAP PO SCH ×2 (00:09→20:11)
[2017-08-13] MEDS: ATORVASTATIN 20 MG TAB PO SCH ×2 (00:10→20:12)
[2017-08-13] MEDS: METOPROLOL TARTRATE 25 MG TAB PO SCH ×3 (00:10→20:12)
[2017-08-13] MEDS: SODIUM CHLORIDE 0.9% FLUSH 10 ML FLUSH IV FLUSH SCH ×3 (00:11→20:11)
[2017-08-13] MEDS ORDERED: IPRATROPIUM NEB SCH (08:00)
[2017-08-13] MEDS ORDERED: ALBUTEROL NEB SCH (08:00)
[2017-08-13] MEDS: DUONEB NEB SCH ×3 (08:09→20:15)
[2017-08-13 08:36] LABS: ALBUMIN 3.7 GM/DL (3.4-5.0); ALT (GPT) 18 U/L (12-78); AST (GOT) 30 U/L (15-37); BICARBONATE 27.9 MEQ/L (21.0-32.0); BLOOD UREA NITROGEN 58 MG/DL (7-18); CALCIUM 8.5 MG/DL (8.5-10.1); CHLORIDE 108 MEQ/L (98-107); CREATININE 3.35 MG/DL (0.60-1.30); GLOMERULAR FILTRATION RATE 18 ML/MIN (>89); GLUCOSE,RANDOM 88 MG/DL (74-106); SODIUM (NA) 143 MEQ/L (136-145)
[2017-08-13 08:39] LABS: ALKALINE PHOSPHATASE 93 U/L (45-117); TOTAL BILIRUBIN ADULT 0.5 MG/DL (0.2-1.0); TOTAL PROTEIN 7.4 GM/DL (6.4-8.2)
[2017-08-13] MEDS ORDERED: LISINOPRIL 5 MG TAB PO SCH (09:00)
[2017-08-13] MEDS ORDERED: NON-FORMULARY DRUG (Omeprazole 40 MG) PO SCH (09:00)
[2017-08-13] MEDS: CLOTRIMAZOLE 1% CREAM 15 GM TOPICAL SCH ×2 (09:00→20:12)
[2017-08-13] MEDS ORDERED: LISINOPRIL 10 MG TAB PO SCH (09:00)
[2017-08-13] MEDS: NYSTATIN 100,000 U/GM PWD 15 GM BTL TOPICAL SCH ×2 (09:00→20:12)
[2017-08-13] MEDS ORDERED: LEVOFLOXACIN 500 MG TAB PO ONE (09:00)
--- NOTE | 2017-08-13 11:43 | PD.CONS ---
[facility] Service Nephrology Consult Requested By Dr. Louise Reason for Consult Acute kidney injury Primary Care Physician Can Green, DO History of Present Illness Patient is a 81 year old male with a past medical history of hypertension, hyperlipidemia, Chronic kidney disease, anemia, thrombocytopenia, PAD, COPD, Hx of GI bleed, diabetes, BPH, and CHF. Patient presented to emergency department status post fall at [facility]. He was being treated urinary tract infection. In the emergency department he was found to be in acute renal failure. Nephrology was consulted for elevated BUN and creatinine with a creatinine of 4.01 yesterday and 3.35 today. Potassium, calcium, and HCO3 normal and does not appear to be in fluid overload. Has indwelling Szymanski catheter secondary to retention. Reviewing the records patient is found to have chronic kidney disease with a baseline creatinine of 1.4 to 1.6 in February of 2017. (Sophy Dobbins) Review of Systems Constitutional: COMPLAINS OF: Fatigue Respiratory: DENIES: Shortness of breath Cardiovascular: DENIES: Chest pain, Lower Extremity Edema Gastrointestinal: DENIES: Diarrhea, Nausea Musculoskeletal: COMPLAINS OF: Joint pain, Muscle aches, Stiffness, Joint Swelling (Sophy Dobbins) Past Family Social History Allergies: Coded Allergies: No Known Allergies (Verified Allergy, Unknown, 08/12/17) Past Medical History Per Records Hypertension Hyperlipidemia Chronic kidney disease stage II Anemia Thrombocytopenia Peripheral arterial disease Chronic obstructive pulmonary disease History GI bleed Diabetes Obesity Prostate enlargement with bladder outlet obstruction and chronic indwelling catheter Congestive heart failure Past Surgical History Past Medical History Hypertension Hyperlipidemia Per records Stent in left external iliac artery Anterior tibial angioplasty Thoracentesis Endoscopy Hernia repair Active Ordered Medications Current Medications Medications (Trade) Dose Ordered Sig/Ken Route Start Time Stop Time Status Last Admin (Lipitor) 20 mg HS PO 08/12/17 21:00 08/13/17 00:10 (Coreg) 3.125 mg BID PO 08/12/17 21:00 08/13/17 00:09 (CeleXA) 20 mg DAILY PO 08/13/17 09:00 (Plavix) 75 mg DAILY PO 08/13/17 09:00 (Lotrimin 1% Cream) 1 applic BID TOPICAL 08/12/17 21:00 ([place] 5-325 Mg) 1 tab Q8HR PRN PO 08/12/17 20:15 (Milk Of Magnesia Liq) 30 ml DAILY PRN PO 08/12/17 20:15 (Lopressor) 25 mg BID PO 08/12/17 21:30 08/13/17 00:10 (Flomax) 0.4 mg HS PO 08/12/17 21:00 08/13/17 00:09 Sodium Chloride 1,000 ml @ 75 mls/hr [id number] IV 08/12/17 21:00 08/12/17 21:00 (NS Flush) 2 ml UNSCH PRN IV FLUSH 08/12/17 20:30 (NS Flush) 2 ml BID IV FLUSH 08/12/17 21:00 08/13/17 00:11 (Tylenol) 650 mg Q4H PRN PO 08/12/17 20:30 (Narcan Inj) 0.4 mg UNSCH PRN IV PUSH 08/12/17 20:30 (Dulcolax Supp) 10 mg DAILY PRN RECTAL 08/12/17 20:30 (Protonix) 40 mg DAILY PO 08/13/17 09:00 (Mycostatin Powder) 1 applic Q12HR TOPICAL 08/13/17 09:00 (Duoneb Neb) 1 ampule Q6HR WHILE AWAKE NEB NEB 08/13/17 08:00 08/13/17 08:09 (Bactrim Ds 800-160 Mg) 1 tab Q24H PO 08/12/17 22:00 08/13/17 00:09 (Levaquin) 250 mg Q48H PO 08/15/17 09:00 (Prinivil) 5 mg DAILY PO 08/13/17 09:00 (Lioresal) 2.5 mg Q12HR PO 08/13/17 09:00 (Pill Splitter) 1 ea UNSCH PRN OTHER 08/12/17 21:45 Social History Denies tobacco, ETOH use Staying at [facility] (Sophy Dobbins) Physical Exam Vital Signs Vital Signs Date Time Temp Pulse Resp B/P (MAP) Pulse Ox O2 Delivery O2 Flow Rate FiO2 08/13/17 08:12 98 Nasal Cannula 3.00 08/13/17 08:00 97.3 63 18 93/54 (67) 99 08/13/17 04:00 97.8 57 16 135/60 (85) 95 08/13/17 00:01 87 08/13/17 00:00 97.3 95 17 159/87 (111) 92 08/12/17 21:13 08/12/17 20:29 95 Nasal Cannula 4.00 08/12/17 20:29 79 18 160/72 (101) 97 Nasal Cannula 2.00 08/12/17 20:00 98.1 81 18 127/80 (96) 96 08/12/17 17:12 90 131/57 (81) 08/12/17 17:06 97.8 87 20 131/57 (81) 87 Physical Exam GENERAL: Alert and oriented SKIN: Warm and dry. HEAD: Normocephalic. EYES: No scleral icterus. No injection or drainage. NECK: Supple, trachea midline. No JVD or lymphadenopathy. CARDIOVASCULAR: Regular rate and rhythm without murmurs, gallops, or rubs. RESPIRATORY: Breath sounds diminishedequal bilaterally. No accessory muscle use. GASTROINTESTINAL: Abdomen soft, non-tender, nondistended. MUSCULOSKELETAL: No cyanosis, or edema. Left ankle swelling BACK: Nontender without obvious deformity. No CVA tenderness. Laboratory Laboratory Tests Test 08/12/17 17:17 08/12/17 22:05 08/13/17 07:40 White Blood Count 8.6 Red Blood Count 4.14 Hemoglobin 12.5 Hematocrit 37.9 Mean Corpuscular Volume 91.7 Mean Corpuscular Hemoglobin 30.2 Mean Corpuscular Hemoglobin Concent 32.9 Red Cell Distribution Width 15.4 Platelet Count 163 Mean Platelet Volume 10.3 Neutrophils (%) (Auto) 83.6 Lymphocytes (%) (Auto) 9.6 Monocytes (%) (Auto) 6.5 Eosinophils (%) (Auto) 0.0 Basophils (%) (Auto) 0.3 Neutrophils # (Auto) 7.2 Lymphocytes # (Auto) 0.8 Monocytes # (Auto) 0.6 Eosinophils # (Auto) 0.0 Basophils # (Auto) 0.0 CBC Comment DIFF FINAL Differential Comment Prothrombin Time 11.3 Prothromb Time International Ratio 1.1 Activated Partial Thromboplast Time 24.6 Urine Color YELLOW Urine Turbidity CLOUDY Urine pH 6.0 Urine Specific [place] 1.016 Urine Protein 100 Urine Glucose (UA) NEG Urine Ketones TRACE Urine Occult Blood SMALL Urine Nitrite NEG Urine Bilirubin NEG Urine Urobilinogen 4.0 OR GREATER Urine Leukocyte Esterase LARGE Urine RBC 20 Urine WBC Urine Squamous Epithelial Cells <1 Urine Bacteria MANY Urine Hyaline Casts 13 Urine Mucus FEW Microscopic Urinalysis Comment CULTURE INDICATED Blood Urea Nitrogen 60 58 Creatinine 4.01 3.35 Random Glucose 105 88 Total Protein 8.4 7.4 Albumin 4.2 3.7 Calcium Level 9.2 8.5 Alkaline Phosphatase 108 93 Aspartate Amino Transf (AST/SGOT) 36 30 Alanine Aminotransferase (ALT/SGPT) 19 18 Total Bilirubin 0.5 0.5 Sodium Level 142 143 Potassium Level 5.1 4.7 Chloride Level 105 108 Carbon Dioxide Level 25.3 27.9 Anion Gap 12 7 Estimat Glomerular Filtration Rate 15 18 Lactic Acid Level 2.8 0.7 Date/Time Source Procedure Growth Status 08/12/17 17:17 Blood Peripheral Aerobic Blood Culture - Preliminary NO GROWTH IN 1 DAY Resulted 08/12/17 17:17 Blood Peripheral Anaerobic Blood Culture - Preliminary NO GROWTH IN 1 DAY Resulted 08/12/17 17:17 Urine Clean Catch Urine Culture Pending Received (Sophy Dobbins) Result Diagram: 08/12/17 1717 08/13/17 0740 Imaging Last Impressions Head CT 08/12/17 1704 Signed Impressions: CONCLUSION: 1. No acute intracranial abnormality identified. The exam does demonstrate mil d cortical atrophy and microvascular ischemic demyelinative change.. Chest X-Ray 08/12/17 1704 Signed Impressions: CONCLUSION: Suspected minimal atelectasis and possible minimal effusions. Cervical Spine CT 08/12/17 0000 Signed Impressions: CONCLUSION: 1. Study is degraded by motion artifact. 2. No gross fracture or dislocation. 3. Degenerative changes. (Sophy Dobbins) Assessment and Plan Problem List: (1) MARQUITA (acute kidney injury) ICD Codes: N17.9 - Acute kidney failure, unspecified Status: Acute Plan: Acute kidney injury with a creatinine of 4.01 yesterday and 3.35 today. MARQUITA possible prerenal vs ATN from infection and possible poor intake. Has chronic kidney disease with baseline creatinine of 1.4 to 1.6 in February of 2017 possible related to hypertension vs diabetes Potassium, calcium, and HCO3 normal and does not appear to be in fluid overload. Plan Will order renal US Urine osmolarity, sodium,and creatinine Avoid nephrotoxic agents Continue IVF's Will hold lisinopril and bactrim. Will monitor Urinary output and renal panel (2) Altered mental status ICD Codes: R41.82 - Altered mental status, unspecified Status: Acute (3) UTI (urinary tract infection) ICD Codes: N39.0 - Urinary tract infection, site not specified Status: Acute Plan: Continue antibiotics per ID recommendation Renal dose antibiotics (Sophy Dobbins) Problem List: (1) MARQUITA (acute kidney injury) ICD Codes: N17.9 - Acute kidney failure, unspecified Status: Acute Plan: Acute kidney injury with a creatinine of 4.01 yesterday and 3.35 today. MARQUITA possible prerenal vs ATN from infection and possible poor intake. Has chronic kidney disease with baseline creatinine of 1.4 to 1.6 in February of 2017 possible related to hypertension vs diabetes Potassium, calcium, and HCO3 normal and does not appear to be in fluid overload. Plan Will order renal US Urine osmolarity, sodium,and creatinine Avoid nephrotoxic agents Continue IVF's Will hold lisinopril and Bactrim. Will monitor Urinary output and renal panel. Patient seen and examined, agree with above. Most likely has chronic kidney disease and develop MARQUITA. (2) Altered mental status ICD Codes: R41.82 - Altered mental status, unspecified Status: Acute (3) UTI (urinary tract infection) ICD Codes: N39.0 - Urinary tract infection, site not specified Status: Acute Plan: Continue antibiotics per ID recommendation Renal dose antibiotics (Sterling Metcalf MD) Problem Qualifiers (1) Altered mental status: Qualified Codes: R41.82 - Altered mental status, unspecified (2) UTI (urinary tract infection): Qualified Codes: N30.00 - Acute cystitis without hematuria Sophy Dobbins Aug 13, 2017 11:43 Sterling Metcalf MD Aug 13, 2017 22:39
--- NOTE | 2017-08-13 12:24 | HHI.HP ---
History of Present Illness Primary Care Physician Can Green, DO Admission Diagnosis acute kidney injury, urosepsis, AMS, head injury Diagnoses: History of Present Illness 81-year-old male the presents to the ED for evaluation of fall as well as altered mental status sent from [facility]. He was found to have creatinine 4.0. He is being teated for UTI with Bactrim. He has PMH of HTN, HLD, Copd, HF , CKD, Anemia. Admitted for MARQUITA/CKD, renal consult. Past Family Social History Allergies: Coded Allergies: No Known Allergies (Verified Allergy, Unknown, 08/12/17) Past Medical History HF COPD HTN HLD Thrombocytopenia Anemia DM Active Ordered Medications Current Medications Medications (Trade) Dose Ordered Sig/Ken Route Start Time Stop Time Status Last Admin (Lipitor) 20 mg HS PO 08/12/17 21:00 08/13/17 00:10 (Coreg) 3.125 mg BID PO 08/12/17 21:00 08/13/17 00:09 (CeleXA) 20 mg DAILY PO 08/13/17 09:00 (Plavix) 75 mg DAILY PO 08/13/17 09:00 (Lotrimin 1% Cream) 1 applic BID TOPICAL 08/12/17 21:00 ([place] 5-325 Mg) 1 tab Q8HR PRN PO 08/12/17 20:15 (Milk Of Magnesia Liq) 30 ml DAILY PRN PO 08/12/17 20:15 (Lopressor) 25 mg BID PO 08/12/17 21:30 08/13/17 00:10 (Flomax) 0.4 mg HS PO 08/12/17 21:00 08/13/17 00:09 Sodium Chloride 1,000 ml @ 75 mls/hr [id number] IV 08/12/17 21:00 08/12/17 21:00 (NS Flush) 2 ml UNSCH PRN IV FLUSH 08/12/17 20:30 (NS Flush) 2 ml BID IV FLUSH 08/12/17 21:00 08/13/17 00:11 (Tylenol) 650 mg Q4H PRN PO 08/12/17 20:30 (Narcan Inj) 0.4 mg UNSCH PRN IV PUSH 08/12/17 20:30 (Dulcolax Supp) 10 mg DAILY PRN RECTAL 08/12/17 20:30 (Protonix) 40 mg DAILY PO 08/13/17 09:00 (Mycostatin Powder) 1 applic Q12HR TOPICAL 08/13/17 09:00 (Duoneb Neb) 1 ampule Q6HR WHILE AWAKE NEB NEB 08/13/17 08:00 08/13/17 08:09 (Bactrim Ds 800-160 Mg) 1 tab Q24H PO 08/12/17 22:00 Future Hold 08/13/17 00:09 (Levaquin) 250 mg Q48H PO 08/15/17 09:00 (Prinivil) 5 mg DAILY PO 08/13/17 09:00 Future Hold (Lioresal) 2.5 mg Q12HR PO 08/13/17 09:00 (Pill Splitter) 1 ea UNSCH PRN OTHER 08/12/17 21:45 Social History Denies ETOH, Tobacco Physical Exam Vital Signs Vital Signs Date Time Temp Pulse Resp B/P (MAP) Pulse Ox O2 Delivery O2 Flow Rate FiO2 08/13/17 08:12 98 Nasal Cannula 3.00 08/13/17 08:00 97.3 63 18 93/54 (67) 99 08/13/17 04:00 97.8 57 16 135/60 (85) 95 08/13/17 00:01 87 08/13/17 00:00 97.3 95 17 159/87 (111) 92 08/12/17 21:13 08/12/17 20:29 95 Nasal Cannula 4.00 08/12/17 20:29 79 18 160/72 (101) 97 Nasal Cannula 2.00 08/12/17 20:00 98.1 81 18 127/80 (96) 96 08/12/17 17:12 90 131/57 (81) 08/12/17 17:06 97.8 87 20 131/57 (81) 87 Physical Exam GENERAL: This is a well-nourished, well-developed patient, in no apparent distress. SKIN: warm and dry HEAD: Atraumatic. Normocephalic. EYES: Pupils equal round and reactive. Extraocular motions intact. No scleral icterus. No injection or drainage. ENT: Nose without bleeding, purulent drainage or septal hematoma. Airway patent. NECK: Trachea midline. Supple, nontender, no meningeal signs. CARDIOVASCULAR: Regular rate and rhythm without murmurs, gallops, or rubs. RESPIRATORY: Clear to auscultation. Breath sounds equal bilaterally. GASTROINTESTINAL: Abdomen soft, non-tender, nondistended. MUSCULOSKELETAL: Extremities without clubbing, cyanosis, or edema. NEUROLOGICAL: Awake and alert. Normal speech. Laboratory Laboratory Tests Test 08/12/17 17:17 08/12/17 22:05 08/13/17 07:40 White Blood Count 8.6 Red Blood Count 4.14 Hemoglobin 12.5 Hematocrit 37.9 Mean Corpuscular Volume 91.7 Mean Corpuscular Hemoglobin 30.2 Mean Corpuscular Hemoglobin Concent 32.9 Red Cell Distribution Width 15.4 Platelet Count 163 Mean Platelet Volume 10.3 Neutrophils (%) (Auto) 83.6 Lymphocytes (%) (Auto) 9.6 Monocytes (%) (Auto) 6.5 Eosinophils (%) (Auto) 0.0 Basophils (%) (Auto) 0.3 Neutrophils # (Auto) 7.2 Lymphocytes # (Auto) 0.8 Monocytes # (Auto) 0.6 Eosinophils # (Auto) 0.0 Basophils # (Auto) 0.0 CBC Comment DIFF FINAL Differential Comment Prothrombin Time 11.3 Prothromb Time International Ratio 1.1 Activated Partial Thromboplast Time 24.6 Urine Color YELLOW Urine Turbidity CLOUDY Urine pH 6.0 Urine Specific [place] 1.016 Urine Protein 100 Urine Glucose (UA) NEG Urine Ketones TRACE Urine Occult Blood SMALL Urine Nitrite NEG Urine Bilirubin NEG Urine Urobilinogen 4.0 OR GREATER Urine Leukocyte Esterase LARGE Urine RBC 20 Urine WBC Urine Squamous Epithelial Cells <1 Urine Bacteria MANY Urine Hyaline Casts 13 Urine Mucus FEW Microscopic Urinalysis Comment CULTURE INDICATED Blood Urea Nitrogen 60 58 Creatinine 4.01 3.35 Random Glucose 105 88 Total Protein 8.4 7.4 Albumin 4.2 3.7 Calcium Level 9.2 8.5 Alkaline Phosphatase 108 93 Aspartate Amino Transf (AST/SGOT) 36 30 Alanine Aminotransferase (ALT/SGPT) 19 18 Total Bilirubin 0.5 0.5 Sodium Level 142 143 Potassium Level 5.1 4.7 Chloride Level 105 108 Carbon Dioxide Level 25.3 27.9 Anion Gap 12 7 Estimat Glomerular Filtration Rate 15 18 Lactic Acid Level 2.8 0.7 Date/Time Source Procedure Growth Status 08/12/17 17:17 Blood Peripheral Aerobic Blood Culture - Preliminary NO GROWTH IN 1 DAY Resulted 08/12/17 17:17 Blood Peripheral Anaerobic Blood Culture - Preliminary NO GROWTH IN 1 DAY Resulted 08/12/17 17:17 Urine Clean Catch Urine Culture Pending Received Result Diagram: 08/12/17 1717 08/13/17 0740 Imaging Last Impressions Head CT 08/12/17 1704 Signed Impressions: CONCLUSION: 1. No acute intracranial abnormality identified. The exam does demonstrate mil d cortical atrophy and microvascular ischemic demyelinative change.. Chest X-Ray 08/12/17 170 Signed Impressions: CONCLUSION: Suspected minimal atelectasis and possible minimal effusions. Cervical Spine CT 08/12/17 0000 Signed Impressions: CONCLUSION: 1. Study is degraded by motion artifact. 2. No gross fracture or dislocation. 3. Degenerative changes. Caprini VTE Risk Assessment Caprini VTE Risk Assessment: Mod/High Risk (score >= 2) Caprini Risk Assessment Model Point Value = 1 Point Value = 2 Point Value = 3 Point Value = 5 Age 41-60 Minor surgery BMI > 25 kg/m2 Swollen legs Varicose veins or History of unexplained or recurrent spontaneous Oral contraceptives or hormone replacement Sepsis (< 1 month) Serious lung disease, including pneumonia (< 1 month) Abnormal pulmonary function Acute myocardial infarction Congestive heart failure (< 1 month) History of inflammatory bowel disease Medical patient at bed rest Age 61-74 Arthroscopic surgery Major open surgery (> 45 min) Laparoscopic surgery (> 45 min) Malignancy Confined to bed (> 72 hours) Immobilizing plaster cast Central venous access Age >= 75 History of VTE Family history of VTE Factor V Leiden Prothrombin [id number] Lupus anticoagulant Anticardiolipin antibodies Elevated serum homocysteine Heparin-induced thrombocytopenia Other congenital or acquired thrombophilia Stroke (< 1 month) Elective arthroplasty Hip, pelvis, or leg fracture Acute spinal cord injury (< 1 month) Prophylaxis Regimen Total Risk Factor Score Risk Level Prophylaxis Regimen 0-1 Low Early ambulation 2 Moderate Order ONE of the following: *Sequential Compression Device (SCD) *Heparin 5000 units SQ BID 3-4 Higher Order ONE of the following medications: *Heparin 5000 units SQ TID *Enoxaparin/Lovenox 40 mg SQ daily (WT < 150 kg, CrCl > 30 mL/min) *Enoxaparin/Lovenox 30 mg SQ daily (WT < 150 kg, CrCl > 10-29 mL/min) *Enoxaparin/Lovenox 30 mg SQ BID (WT < 150 kg, CrCl > 30 mL/min) AND/OR *Sequential Compression Device (SCD) 5 or more Highest Order ONE of the following medications: *Heparin 5000 units SQ TID (Preferred with Epidurals) *Enoxaparin/Lovenox 40 mg SQ daily (WT < 150 kg, CrCl > 30 mL/min) *Enoxaparin/Lovenox 30 mg SQ daily (WT < 150 kg, CrCl > 10-29 mL/min) *Enoxaparin/Lovenox 30 mg SQ BID (WT < 150 kg, CrCl > 30 mL/min) AND *Sequential Compression Device (SCD) Assessment and Plan Problem List: (1) MARQUITA (acute kidney injury) ICD Codes: N17.9 - Acute kidney failure, unspecified Status: Acute Plan: IVF, ARABELLA and Bactrim held, per renal, Work up in progress (2) UTI (urinary tract infection) ICD Codes: N39.0 - Urinary tract infection, site not specified Status: Acute Plan: Bactrim held, Follow culture and Sensitivity (3) COPD (chronic obstructive pulmonary disease) ICD Codes: J44.9 - Chronic obstructive pulmonary disease, unspecified Plan: Maintain sat's, Bronchodilators (4) CHF (congestive heart failure) ICD Codes: I50.9 - Heart failure, unspecified Plan: Stable, cont cardiac medication Problem Qualifiers (1) UTI (urinary tract infection): Qualified Codes: N30.00 - Acute cystitis without hematuria Etta Branham Aug 13, 2017 12:24
[2017-08-13] MEDS: CITALOPRAM HYDROBROMIDE 20 MG TAB PO SCH (13:18)
[2017-08-13] MEDS: BACLOFEN 10 MG TAB PO SCH ×2 (13:18→20:12)
[2017-08-13] MEDS: CLOPIDOGREL 75 MG TAB PO SCH (13:19)
[2017-08-13] MEDS: PANTOPRAZOLE SOD 40 MG DELAYED RELEASE TAB PO SCH (13:19)
[2017-08-13] MEDS: ACETAMINOPHEN/HYDROcodone 325 MG/5 MG TAB PO PRN (13:27)
[2017-08-13] MEDS: SODIUM CHLOR 0.45% 1000 ML INJ 1,000 ML IV SCH ×2 (16:08→23:28)
--- NOTE | 2017-08-13 19:24 | PD.ID.CON ---
History of Present Illness Service ID Consult Requested By Dr. Green Reason for Consult Evaluation and Mment of UTI, concern for encephalopathy. Primary Care Physician Can Green, DO Diagnoses: History of Present Illness is a 81 y/o CM with PMHx of prostate problems with chronic indwelling kraft due to prostate issues. Patient is resident of [facility] and was admitted to [facility] for evaluation of fall and altered mental status while at rehab. Patient was being treated for UTI with oral bactrim for last few days [employer]ESSION[employer] per records. Patient complained of headache while at rehab. Per ambulance when they were there patient was really not responding to them much but when the put him on the truck they noted that he started speaking he was answering some questions. He was put in a cervical collar and backboard. On admission patient had no fever, tachycardia or overt signs of sepsis (of note patient was on bactrim [employer]ESSION[employer] for UTI). Patient has chronic kidney disease per nephrology notes.On admission, his Cr was 4.0. ID consulted for evaluation and Mment of UTI, encephalopathy. At time of my evaluation, patient is on the floor awake, alert, responsive to questions, eating his meal. 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 Congestive heart failure Hypertension Hyperlipidemia Past Surgical History Stent in left external iliac artery Anterior tibial angioplasty Thoracentesis Endoscopy Hernia repair Reported Medications Reported Meds & Active Scripts Active Levofloxacin 500 Mg Tablet 500 Mg PO DAILY [Nystatin Powder] 15 APPLIC/15 GM Powd 1 Applic TOPICAL Q12HR Coreg (Carvedilol) 3.125 Mg Tab 3.125 Mg PO BID Lisinopril 10 Mg Tab 10 Mg PO DAILY [Albuterol-Ipratropium Neb] 1 AMPULE Nebu 1 Ampule NEB Q6HR WHILE AWAKE NEB Lotrimin AF Topical (Clotrimazole) 1% Cream 1 Applic TOPICAL BID 10 Days Hydrocodone-Acetamin 5-325 mg (Hydrocodone/Acetaminophen) 5 Mg-325 Mg Tablet 1 Tab PO Q8HR PRN Reported Sulfamethoxazole-Trimethoprim 800-160 Mg Tab 1 Tab PO BID Milk of Harmony Liq (Magnesium Hydroxide) 400 Mg/5 Ml Susp 30 Ml PO DAILY PRN Lopressor (Metoprolol Tartrate) 50 Mg Tab 25 Mg PO BID Baclofen 10 Mg Tab 10 Mg PO Q8HR Omeprazole 40 Mg Cap 40 Mg PO DAILY Lipitor (Atorvastatin Calcium) 20 Mg Tab 20 Mg PO HS Citalopram (Citalopram Hydrobromide) 20 Mg Tab 20 Mg PO DAILY Plavix (Clopidogrel Bisulfate) 75 Mg Tab 75 Mg PO DAILY Tamsulosin (Tamsulosin HCl) 0.4 Mg Cap 0.4 Mg PO HS Active Ordered Medications Current Medications Medications (Trade) Dose Ordered Sig/Ken Route Start Time Stop Time Status Last Admin (Lipitor) 20 mg HS PO 08/12/17 21:00 08/13/17 20:12 (Coreg) 3.125 mg BID PO 08/12/17 21:00 08/13/17 20:11 (CeleXA) 20 mg DAILY PO 08/13/17 09:00 08/13/17 13:18 (Plavix) 75 mg DAILY PO 08/13/17 09:00 08/13/17 13:19 (Lotrimin 1% Cream) 1 applic BID TOPICAL 08/12/17 21:00 08/13/17 20:12 ([place] 5-325 Mg) 1 tab Q8HR PRN PO 08/12/17 20:15 08/13/17 13:27 (Milk Of Magnesia Liq) 30 ml DAILY PRN PO 08/12/17 20:15 (Lopressor) 25 mg BID PO 08/12/17 21:30 08/13/17 20:12 (Flomax) 0.4 mg HS PO 08/12/17 21:00 08/13/17 20:11 Sodium Chloride 1,000 ml @ 75 mls/hr [id number] IV 08/12/17 21:00 08/13/17 16:08 (NS Flush) 2 ml UNSCH PRN IV FLUSH 08/12/17 20:30 (NS Flush) 2 ml BID IV FLUSH 08/12/17 21:00 08/13/17 16:09 (Tylenol) 650 mg Q4H PRN PO 08/12/17 20:30 (Narcan Inj) 0.4 mg UNSCH PRN IV PUSH 08/12/17 20:30 (Dulcolax Supp) 10 mg DAILY PRN RECTAL 08/12/17 20:30 (Protonix) 40 mg DAILY PO 08/13/17 09:00 08/13/17 13:19 (Mycostatin Powder) 1 applic Q12HR TOPICAL 08/13/17 09:00 08/13/17 20:12 (Duoneb Neb) 1 ampule Q6HR WHILE AWAKE NEB NEB 08/13/17 08:00 08/13/17 20:15 (Prinivil) 5 mg DAILY PO 08/13/17 09:00 Future Hold (Lioresal) 2.5 mg Q12HR PO 08/13/17 09:00 08/13/17 20:12 (Pill Splitter) 1 ea UNSCH PRN OTHER 08/12/17 21:45 Ceftriaxone Sodium 1000 mg/ Sodium Chloride 100 ml @ 200 mls/hr Q24H IV 08/13/17 20:00 08/13/17 20:10 Family History reviewed and NC to age. Social History [facility] at [facility]. Denies alcohol, smoking. Son lives in [place]. Physical Exam Vital Signs Vital Signs Date Time Temp Pulse Resp B/P (MAP) Pulse Ox O2 Delivery O2 Flow Rate FiO2 08/13/17 16:00 98.1 68 18 128/57 (80) 96 08/13/17 15:32 3.00 08/13/17 12:00 97.9 78 18 142/63 (89) 97 08/13/17 08:12 98 Nasal Cannula 3.00 08/13/17 08:00 97.3 63 18 93/54 (67) 99 08/13/17 04:00 97.8 57 16 135/60 (85) 95 08/13/17 00:01 87 08/13/17 00:00 97.3 95 17 159/87 (111) 92 08/12/17 21:13 08/12/17 20:29 95 Nasal Cannula 4.00 08/12/17 20:29 79 18 160/72 (101) 97 Nasal Cannula 2.00 08/12/17 20:00 98.1 81 18 127/80 (96) 96 Physical Exam GENERAL: This is a well-nourished, well-developed patient, in no apparent distress. SKIN: No rashes, ecchymoses or lesions. Cool and dry. HEAD: Atraumatic. Normocephalic. No temporal or scalp tenderness. EYES: Pupils equal round and reactive. Extraocular motions intact. No scleral icterus. No injection or drainage. ENT: Nose without bleeding, purulent drainage or septal hematoma. Throat without erythema, tonsillar hypertrophy or exudate. Uvula midline. Airway patent. NECK: Trachea midline. Supple, nontender, no meningeal signs. CARDIOVASCULAR: Regular rate and rhythm without murmurs, gallops, or rubs. RESPIRATORY: Clear to auscultation. Breath sounds equal bilaterally. No wheezes , rales, or rhonchi. GASTROINTESTINAL: Abdomen soft, non-tender, nondistended. MUSCULOSKELETAL: Extremities without clubbing, cyanosis, or edema. No joint tenderness, effusion, or edema noted. No calf tenderness. Negative Homans sign bilaterally. NEUROLOGICAL: Awake and alert. Non focal Psych cooperative IV line sites with no e/o infection. Laboratory Laboratory Tests Test 08/12/17 22:05 08/13/17 07:40 Lactic Acid Level 0.7 Blood Urea Nitrogen 58 Creatinine 3.35 Random Glucose 88 Total Protein 7.4 Albumin 3.7 Calcium Level 8.5 Alkaline Phosphatase 93 Aspartate Amino Transf (AST/SGOT) 30 Alanine Aminotransferase (ALT/SGPT) 18 Total Bilirubin 0.5 Sodium Level 143 Potassium Level 4.7 Chloride Level 108 Carbon Dioxide Level 27.9 Anion Gap 7 Estimat Glomerular Filtration Rate 18 Date/Time Source Procedure Growth Status 08/12/17 17:17 Blood Peripheral Aerobic Blood Culture - Preliminary NO GROWTH IN 1 DAY Resulted 08/12/17 17:17 Blood Peripheral Anaerobic Blood Culture - Preliminary NO GROWTH IN 1 DAY Resulted 08/12/17 17:17 Urine Clean Catch Urine Culture - Preliminary Gram Negative Eh Resulted Result Diagram: 08/12/17 1717 08/13/17 0740 Imaging Last Impressions Head CT 08/12/17 1704 Signed Impressions: CONCLUSION: 1. No acute intracranial abnormality identified. The exam does demonstrate mil d cortical atrophy and microvascular ischemic demyelinative change.. Chest X-Ray 08/12/17 1704 Signed Impressions: CONCLUSION: Suspected minimal atelectasis and possible minimal effusions. Cervical Spine CT 08/12/17 0000 Signed Impressions: CONCLUSION: 1. Study is degraded by motion artifact. 2. No gross fracture or dislocation. 3. Degenerative changes. Assessment and Plan Assessment and Plan Gram negative UTI ? complicated. Prostate issues. R/o Pyelonephritis. Acute metabolic encephalopathy: metabolic/renal, infection, bactrim. Acute renal failure: prerenal, bactrim induced AIN Recs DC Bactrim DC Levaquin Avoid Nephrotoxic agents Start Ceftriaxone IV US Kidney bladder r.o pyelonephritis. Follow cultures Follow clinically. Isabella Cronin MD Aug 13, 2017 19:24
[2017-08-13] MEDS: cefTRIAXone INJ 1,000 MG in SODIUM CHLORIDE 0.9% INJ 100 ML IV SCH (20:10)
[2017-08-14] VITALS (8 sets, daily range): BP systolic 107–140; BP diastolic 56–84; PULSE 56–87; RESP 16–21; TEMP 97.3–98.4; O2SAT 92–100
[2017-08-14] MEDS: NYSTATIN 100,000 U/GM PWD 15 GM BTL TOPICAL SCH ×2 (09:00→19:44)
[2017-08-14] MEDS: CLOTRIMAZOLE 1% CREAM 15 GM TOPICAL SCH ×2 (09:00→19:44)
[2017-08-14] MEDS: SODIUM CHLORIDE 0.9% FLUSH 10 ML FLUSH IV FLUSH SCH ×2 (09:00→19:42)
[2017-08-14] MEDS: DUONEB NEB SCH ×3 (09:29→20:44)
[2017-08-14] MEDS: BACLOFEN 10 MG TAB PO SCH ×2 (10:07→19:42)
[2017-08-14] MEDS: PANTOPRAZOLE SOD 40 MG DELAYED RELEASE TAB PO SCH (10:08)
[2017-08-14] MEDS: CARVEDILOL 3.125 MG TAB PO SCH ×2 (10:08→19:42)
[2017-08-14] MEDS: CITALOPRAM HYDROBROMIDE 20 MG TAB PO SCH (10:08)
[2017-08-14] MEDS: CLOPIDOGREL 75 MG TAB PO SCH (10:08)
[2017-08-14] MEDS: ACETAMINOPHEN/HYDROcodone 325 MG/5 MG TAB PO PRN (10:09)
[2017-08-14] MEDS: METOPROLOL TARTRATE 25 MG TAB PO SCH ×2 (10:09→19:42)
[2017-08-14 11:10] LABS: BASOPHIL % 0.3 % (0.0-2.0); EOSINOPHIL # 0.1 TH/MM3 (0-0.4); EOSINOPHIL % 2.4 % (0.0-4.0); HEMATOCRIT 34.4 % (39.0-51.0); HEMOGLOBIN 11.2 GM/DL (13.0-17.0); LYMPH % 19.6 % (9.0-44.0); LYMPHOCYTE # 1.1 TH/MM3 (1.0-4.8); MEAN CORPUSCULAR HEMOGLOBIN 29.9 PG (27.0-34.0); MEAN CORPUSCULAR HGB CONC 32.5 % (32.0-36.0); MEAN PLATELET VOLUME 10.2 FL (7.0-11.0); MONO % 7.9 % (0.0-8.0); MONOCYTE # 0.4 TH/MM3 (0-0.9); NEUT % 69.8 % (16.0-70.0); PLATELET COUNT 129 TH/MM3 (150-450); RED BLOOD COUNT 3.74 MIL/MM3 (4.50-5.90); RED CELL DISTRIBUTION WIDTH 15.1 % (11.6-17.2); WHITE BLOOD COUNT 5.7 TH/MM3 (4.0-11.0)
[2017-08-14 11:41] LABS: ALBUMIN 3.4 GM/DL (3.4-5.0); ALKALINE PHOSPHATASE 95 U/L (45-117); ALT (GPT) 20 U/L (12-78); AST (GOT) 29 U/L (15-37); BICARBONATE 26.1 MEQ/L (21.0-32.0); BLOOD UREA NITROGEN 46 MG/DL (7-18); CALCIUM 8.7 MG/DL (8.5-10.1); CHLORIDE 103 MEQ/L (98-107); CREATININE 2.43 MG/DL (0.60-1.30); GLOMERULAR FILTRATION RATE 26 ML/MIN (>89); GLUCOSE,RANDOM 109 MG/DL (74-106); SODIUM (NA) 139 MEQ/L (136-145); TOTAL BILIRUBIN ADULT 0.5 MG/DL (0.2-1.0); TOTAL PROTEIN 7.1 GM/DL (6.4-8.2)
[2017-08-14] MEDS: SODIUM CHLOR 0.45% 1000 ML INJ 1,000 ML IV SCH (14:22)
--- NOTE | 2017-08-14 14:59 | HHI.PR ---
Subjective Remarks Patient is awake and denies uremic sx including nausea and asterixis. Objective Vital Signs Date Time Temp Pulse Resp B/P (MAP) Pulse Ox O2 Delivery O2 Flow Rate FiO2 08/14/17 12:00 97.6 63 20 107/60 (76) 100 08/14/17 09:30 97 Nasal Cannula 2.00 08/14/17 08:00 97.3 87 20 138/63 (88) 92 08/14/17 04:00 98.0 82 18 138/84 (102) 95 08/14/17 00:00 98.4 72 18 140/62 (88) 98 08/13/17 20:15 95 Nasal Cannula 3.00 08/13/17 20:00 97.7 76 20 121/58 (79) 97 08/13/17 16:00 98.1 68 18 128/57 (80) 96 08/13/17 15:32 3.00 I/O 08/13/17 08/13/17 08/13/17 08/14/17 08/14/17 08/14/17 07:00 15:00 23:00 07:00 15:00 23:00 Intake Total 1250 ml 1340 ml Output Total 300 ml 1200 ml 1000 ml 1300 ml Balance -300 ml 50 ml 340 ml -1300 ml Intake Oral 1250 ml 240 ml IV Total 1100 ml Output Urine Total 300 ml 1200 ml 1000 ml 1300 ml # Bowel Movements 1 Result Diagram: 08/14/17 1045 08/14/17 1045 Imaging Last Impressions Head CT 08/12/17 1704 Signed Impressions: CONCLUSION: 1. No acute intracranial abnormality identified. The exam does demonstrate mil d cortical atrophy and microvascular ischemic demyelinative change.. Chest X-Ray 08/12/17 1704 Signed Impressions: CONCLUSION: Suspected minimal atelectasis and possible minimal effusions. Cervical Spine CT 08/12/17 0000 Signed Impressions: CONCLUSION: 1. Study is degraded by motion artifact. 2. No gross fracture or dislocation. 3. Degenerative changes. Objective Remarks GENERAL: Awake alert and conversive SKIN: Warm and dry. HEAD: Normocephalic. EYES: No scleral icterus. No injection or drainage. NECK: Supple, trachea midline. No JVD or lymphadenopathy. CARDIOVASCULAR: Regular rate and rhythm without murmurs, gallops, or rubs. RESPIRATORY: Breath sounds decreased at bases bilaterally. No accessory muscle use. GASTROINTESTINAL: Abdomen soft, non-tender, nondistended. MUSCULOSKELETAL: No cyanosis, or edema. BACK: Nontender without obvious deformity. No CVA tenderness. Medications and IVs Current Medications Medications (Trade) Dose Ordered Sig/Ken Route Start Time Stop Time Status Last Admin (Lipitor) 20 mg HS PO 08/12/17 21:00 08/13/17 20:12 (Coreg) 3.125 mg BID PO 08/12/17 21:00 08/14/17 10:08 (CeleXA) 20 mg DAILY PO 08/13/17 09:00 08/14/17 10:08 (Plavix) 75 mg DAILY PO 08/13/17 09:00 08/14/17 10:08 (Lotrimin 1% Cream) 1 applic BID TOPICAL 08/12/17 21:00 08/13/17 20:12 ([place] 5-325 Mg) 1 tab Q8HR PRN PO 08/12/17 20:15 08/14/17 10:09 (Milk Of Magnesia Liq) 30 ml DAILY PRN PO 08/12/17 20:15 (Lopressor) 25 mg BID PO 08/12/17 21:30 08/14/17 10:09 (Flomax) 0.4 mg HS PO 08/12/17 21:00 08/13/17 20:11 Sodium Chloride 1,000 ml @ 75 mls/hr [id number] IV 08/12/17 21:00 08/14/17 14:22 (NS Flush) 2 ml UNSCH PRN IV FLUSH 08/12/17 20:30 (NS Flush) 2 ml BID IV FLUSH 08/12/17 21:00 08/13/17 16:09 (Tylenol) 650 mg Q4H PRN PO 08/12/17 20:30 (Narcan Inj) 0.4 mg UNSCH PRN IV PUSH 08/12/17 20:30 (Dulcolax Supp) 10 mg DAILY PRN RECTAL 08/12/17 20:30 (Protonix) 40 mg DAILY PO 08/13/17 09:00 08/14/17 10:08 (Mycostatin Powder) 1 applic Q12HR TOPICAL 08/13/17 09:00 08/13/17 20:12 (Duoneb Neb) 1 ampule Q6HR WHILE AWAKE NEB NEB 08/13/17 08:00 08/14/17 12:59 (Prinivil) 5 mg DAILY PO 08/13/17 09:00 Future Hold (Lioresal) 2.5 mg Q12HR PO 08/13/17 09:00 08/14/17 10:07 (Pill Splitter) 1 ea UNSCH PRN OTHER 08/12/17 21:45 Ceftriaxone Sodium 1000 mg/ Sodium Chloride 100 ml @ 200 mls/hr Q24H IV 08/13/17 20:00 08/13/17 20:10 Assessment and Plan Problem List: (1) Acute renal failure superimposed on stage 2 chronic kidney disease ICD Codes: N17.9 - Acute kidney failure, unspecified; N18.2 - Chronic kidney disease, stage 2 (mild) Status: Acute Plan: Renal function improved from 4 to 3.3 and today is 2.4. Baseline is ~ 1.6. Renal U/S pending and being hydrated with IVF. Off ACEI as well. (2) UTI (urinary tract infection) ICD Codes: N39.0 - Urinary tract infection, site not specified Status: Acute Plan: On antibiotics (3) Altered mental status ICD Codes: R41.82 - Altered mental status, unspecified Status: Resolved Plan: Cont treat MARQUITA Assessment and Plan Unclear etiology of acute on chronic kidney disease. Renal following will F/U closely and avoid nephrotoxic agents. Discussed Condition With patient Discharge Planning [facility] Problem Qualifiers (1) Acute renal failure superimposed on stage 2 chronic kidney disease: Qualified Codes: N17.9 - Acute kidney failure, unspecified; N18.2 - Chronic kidney disease, stage 2 (mild) (2) UTI (urinary tract infection): Qualified Codes: N30.00 - Acute cystitis without hematuria (3) Altered mental status: Qualified Codes: R41.82 - Altered mental status, unspecified Rajendra Warner Aug 14, 2017 14:59
--- NOTE | 2017-08-14 16:48 | HHI.IDPN ---
Subjective Subjective Remarks is a 81 y/o CM with PMHx of prostate problems with chronic indwelling kraft due to prostate issues. Patient is resident of [facility] and was admitted to [facility] for evaluation of fall and altered mental status while at rehab. Patient was being treated for UTI with oral bactrim for last few days [employer]ACH[employer]PER[employer]OMAT[employer] per records. Patient complained of headache while at rehab. Per ambulance when they were there patient was really not responding to them much but when the put him on the truck they noted that he started speaking he was answering some questions. He was put in a cervical collar and backboard. 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 Patient has chronic kidney disease per nephrology notes.On admission, his Cr was 4.0. ID consulted for evaluation and Mment of UTI, encephalopathy. At time of my evaluation, patient is on the floor awake, alert, responsive to questions, eating his meal. Overnight events reviewed No fevers No rash No diarrhea Per RN dw rehab patient has been wheel chair bound for years. 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 Vital Signs Date Time Temp Pulse Resp B/P (MAP) Pulse Ox O2 Delivery O2 Flow Rate FiO2 08/14/17 12:00 97.6 63 20 107/60 (76) 100 08/14/17 09:30 97 Nasal Cannula 2.00 08/14/17 08:00 97.3 87 20 138/63 (88) 92 08/14/17 04:00 98.0 82 18 138/84 (102) 95 08/14/17 00:00 98.4 72 18 140/62 (88) 98 08/13/17 20:15 95 Nasal Cannula 3.00 08/13/17 20:00 97.7 76 20 121/58 (79) 97 08/14/17 08/14/17 08/15/17 15:00 23:00 07:00 Output Total 1300 ml Balance -1300 ml Output Urine Total 1300 ml . Laboratory Tests Test 08/12/17 17:17 08/14/17 10:45 White Blood Count 8.6 TH/MM3 5.7 TH/MM3 Red Blood Count 4.14 MIL/MM3 3.74 MIL/MM3 Hemoglobin 12.5 GM/DL 11.2 GM/DL Hematocrit 37.9 % 34.4 % Mean Corpuscular Volume 91.7 FL 92.0 FL Mean Corpuscular Hemoglobin 30.2 PG 29.9 PG Mean Corpuscular Hemoglobin Concent 32.9 % 32.5 % Red Cell Distribution Width 15.4 % 15.1 % Platelet Count 163 TH/MM3 129 TH/MM3 Mean Platelet Volume 10.3 FL 10.2 FL Neutrophils (%) (Auto) 83.6 % 69.8 % Lymphocytes (%) (Auto) 9.6 % 19.6 % Monocytes (%) (Auto) 6.5 % 7.9 % Eosinophils (%) (Auto) 0.0 % 2.4 % Basophils (%) (Auto) 0.3 % 0.3 % Neutrophils # (Auto) 7.2 TH/MM3 4.0 TH/MM3 Lymphocytes # (Auto) 0.8 TH/MM3 1.1 TH/MM3 Monocytes # (Auto) 0.6 TH/MM3 0.4 TH/MM3 Eosinophils # (Auto) 0.0 TH/MM3 0.1 TH/MM3 Basophils # (Auto) 0.0 TH/MM3 0.0 TH/MM3 CBC Comment DIFF FINAL DIFF FINAL Differential Comment Laboratory Tests Test 08/12/17 17:17 08/12/17 22:05 08/13/17 07:40 08/14/17 10:45 Blood Urea Nitrogen 60 MG/DL 58 MG/DL 46 MG/DL Creatinine 4.01 MG/DL 3.35 MG/DL 2.43 MG/DL Random Glucose 105 MG/DL 88 MG/DL 109 MG/DL Total Protein 8.4 GM/DL 7.4 GM/DL 7.1 GM/DL Albumin 4.2 GM/DL 3.7 GM/DL 3.4 GM/DL Calcium Level 9.2 MG/DL 8.5 MG/DL 8.7 MG/DL Alkaline Phosphatase 108 U/L 93 U/L 95 U/L Aspartate Amino Transf (AST/SGOT) 36 U/L 30 U/L 29 U/L Alanine Aminotransferase (ALT/SGPT) 19 U/L 18 U/L 20 U/L Total Bilirubin 0.5 MG/DL 0.5 MG/DL 0.5 MG/DL Sodium Level 142 MEQ/L 143 MEQ/L 139 MEQ/L Potassium Level 5.1 MEQ/L 4.7 MEQ/L 4.4 MEQ/L Chloride Level 105 MEQ/L 108 MEQ/L 103 MEQ/L Carbon Dioxide Level 25.3 MEQ/L 27.9 MEQ/L 26.1 MEQ/L Anion Gap 12 MEQ/L 7 MEQ/L 10 MEQ/L Estimat Glomerular Filtration Rate 15 ML/MIN 18 ML/MIN 26 ML/MIN Lactic Acid Level 2.8 mmol/L 0.7 mmol/L Microbiology Date/Time Source Procedure Growth Status 08/12/17 17:17 Blood Peripheral Aerobic Blood Culture - Preliminary NO GROWTH IN 2 DAYS Resulted 08/12/17 17:17 Blood Peripheral Anaerobic Blood Culture - Preliminary NO GROWTH IN 2 DAYS Resulted 08/12/17 17:17 Blood Peripheral Aerobic Blood Culture - Preliminary NO GROWTH IN 2 DAYS Resulted 08/12/17 17:17 Blood Peripheral Anaerobic Blood Culture - Preliminary NO GROWTH IN 2 DAYS Resulted 08/12/17 17:17 Urine Clean Catch Urine Culture - Preliminary Gram Negative Eh Group D Enterococcus Resulted Imaging Last Impressions Head CT 08/12/17 170 Signed Impressions: CONCLUSION: 1. No acute intracranial abnormality identified. The exam does demonstrate mil d cortical atrophy and microvascular ischemic demyelinative change.. Chest X-Ray 08/12/171703 Signed Impressions: CONCLUSION: Suspected minimal atelectasis and possible minimal effusions. Cervical Spine CT 08/12/17 0000 Signed Impressions: CONCLUSION: 1. Study is degraded by motion artifact. 2. No gross fracture or dislocation. 3. Degenerative changes. Physical Exam GENERAL: This is a well-nourished, well-developed patient, in no apparent distress. SKIN: No rashes, ecchymoses or lesions. Cool and dry. HEAD: Atraumatic. Normocephalic. No temporal or scalp tenderness. EYES: Pupils equal round and reactive. Extraocular motions intact. No scleral icterus. No injection or drainage. ENT: Nose without bleeding, purulent drainage or septal hematoma. Throat without erythema, tonsillar hypertrophy or exudate. Uvula midline. Airway patent. NECK: Trachea midline. Supple, nontender, no meningeal signs. CARDIOVASCULAR: Regular rate and rhythm without murmurs, gallops, or rubs. RESPIRATORY: Clear to auscultation. Breath sounds equal bilaterally. No wheezes , rales, or rhonchi. GASTROINTESTINAL: Abdomen soft, non-tender, nondistended. MUSCULOSKELETAL: Extremities without clubbing, cyanosis, or edema. No joint tenderness, effusion, or edema noted. No calf tenderness. Negative Homans sign bilaterally. NEUROLOGICAL: Awake and alert. Non focal Psych cooperative IV line sites with no e/o infection. Assessment & Plan Remarks Gram negative UTI ? complicated. Prostate issues. R/o Pyelonephritis. Acute metabolic encephalopathy: metabolic/renal, infection, bactrim. Acute renal failure: prerenal, bactrim induced AIN Recs Avoid Nephrotoxic agents Continue Ceftriaxone IV US Kidney bladder r.o pyelonephritis. Follow cultures Follow clinically. Isabella Cronin MD Aug 14, 2017 16:48
--- NOTE | 2017-08-14 16:53 | RADRPT ---
EXAM DATE: 08/14/2017 4:41 PM EDT AGE/SEX: 81 years / Male INDICATIONS: Pyelonephritis. CLINICAL DATA: This is the patient's subsequent encounter. Patient reports that signs and symptoms h ave been present for 1 day and indicates a pain score of 0/10. MEDICAL/SURGICAL HISTORY: Congestive heart failure. Hypercholesterolemia. Hypertension. Left leg numbness. Anticoagulant therapy. COPD. Hyperlipidemia. Renal failure. Arthritis. Diabetes. Anxie ty. Anemia. Left foot ulcer. . Left ankle surgery. Stents. COMPARISON: [facility] [place], KIDNEY/RENAL/BLADDER, 05/18/2010. . MEASUREMENTS: Right Kidney:__9.0 x 4.8 x 5.2 cm cm Left Kidney:__9.8 x 5.4 x 5.3 cm FINDINGS: Multiple small bilateral nonobstructing renal calcifications. Multiple small cysts. No hydronephrosis . Kidneys are atrophic. Kidneys also echogenic characteristics of medical renal disease. Bladder: Fol ey catheter is present. Bladder decompressed. Other: None. CONCLUSION: 1. Atrophic echogenic kidneys characteristic of medical renal disease. Nonobstructing renal calcific ations. Small bilateral renal cysts Electronically signed by: Huber Olvera MD 08/14/2017 4:52 PM EDT
--- NOTE | 2017-08-14 18:52 | HHI.NPPN ---
Subjective Interval History no acute complaints Objective Data Data 08/14/17 08/15/17 19:00 07:00 Intake Total 720 ml Output Total 1600 ml Balance -880 ml Intake Oral 720 ml Output Urine Total 1600 ml # Bowel Movements 0 Vital Signs Date Time Temp Pulse Resp B/P (MAP) Pulse Ox O2 Delivery O2 Flow Rate FiO2 08/14/17 16:00 98.0 56 21 111/56 (74) 99 08/14/17 12:00 97.6 63 20 107/60 (76) 100 08/14/17 09:30 97 Nasal Cannula 2.00 08/14/17 08:00 97.3 87 20 138/63 (88) 92 08/14/17 04:00 98.0 82 18 138/84 (102) 95 08/14/17 00:00 98.4 72 18 140/62 (88) 98 08/13/17 20:15 95 Nasal Cannula 3.00 08/13/17 20:00 97.7 76 20 121/58 (79) 97 -: 08/14/17 1045 08/14/17 1045 Physical Exam General Appearance: No Acute Distress Eyes Eye Exam: Pupils Equal Throat Throat Exam: Oral Mucosa [place] & Moist Neck Neck Exam: Neck Supple Pulmonary Resp Exam: Diminished Breath Sounds Cardiology CV Exam: Regular, Normal Sinus Rhythm Gastrointestinal/Abdomen GI Exam: Soft, Non-Tender Musculoskeletal MS Exam: Joints Intact Integumentary Skin Exam: Warm, Dry, Intact Extremeties Extremities Exam: No Edema Neurologic Neuro Exam: Alert, Awake Assessment/Plan Problem List: (1) MARQUITA (acute kidney injury) ICD Codes: N17.9 - Acute kidney failure, unspecified Status: Acute Plan: Acute kidney injury with a creatinine of 4.01 on admissin MARQUITA possible prerenal vs ATN from infection and possible poor intake. Has chronic kidney disease with baseline creatinine of 1.4 to 1.6 in February of 2017 possible related to hypertension vs diabetes Renal ultrasound with echogenic kidneys suggestive of CKD. Potassium, calcium, and HCO3 normal and does not appear to be in fluid overload. Plan Renal function improving on IVFs -Creatinine down to 2.43 today 2.2 L UOP with kraft Continue to monitor electrolytes and UOP Continue to hold lisinopril and Bactrim. (2) Altered mental status ICD Codes: R41.82 - Altered mental status, unspecified Status: Resolved (3) UTI (urinary tract infection) ICD Codes: N39.0 - Urinary tract infection, site not specified Status: Acute Plan: Continue antibiotics per ID recommendation Renal dose antibiotics Problem Qualifiers (1) Altered mental status: Qualified Codes: R41.82 - Altered mental status, unspecified (2) UTI (urinary tract infection): Qualified Codes: N30.00 - Acute cystitis without hematuria Harris Jewell MD Aug 14, 2017 18:52
[2017-08-14] MEDS: cefTRIAXone INJ 1,000 MG in SODIUM CHLORIDE 0.9% INJ 100 ML IV SCH (19:41)
[2017-08-14] MEDS: TAMSULOSIN HCL 0.4 MG CAP PO SCH (19:42)
[2017-08-14] MEDS: ATORVASTATIN 20 MG TAB PO SCH (19:42)
[2017-08-15] VITALS (9 sets, daily range): BP systolic 118–145; BP diastolic 56–69; PULSE 52–73; RESP 17–19; TEMP 97.6–98.1; O2SAT 94–98
[2017-08-15] MEDS: SODIUM CHLOR 0.45% 1000 ML INJ 1,000 ML IV SCH ×2 (02:35→14:41)
[2017-08-15 06:43] LABS: AUTOMATED NEUTROPHIL # 2.9 TH/MM3 (1.8-7.7); BASOPHIL % 0.3 % (0.0-2.0); EOSINOPHIL # 0.2 TH/MM3 (0-0.4); EOSINOPHIL % 4.1 % (0.0-4.0); HEMATOCRIT 30.1 % (39.0-51.0); LYMPH % 20.8 % (9.0-44.0); LYMPHOCYTE # 0.9 TH/MM3 (1.0-4.8); MEAN CELL VOLUME 91.5 FL (80.0-100.0); MEAN CORPUSCULAR HEMOGLOBIN 30.4 PG (27.0-34.0); MEAN CORPUSCULAR HGB CONC 33.2 % (32.0-36.0); MEAN PLATELET VOLUME 10.5 FL (7.0-11.0); MONO % 8.2 % (0.0-8.0); MONOCYTE # 0.4 TH/MM3 (0-0.9); NEUT % 66.6 % (16.0-70.0); PLATELET COUNT 114 TH/MM3 (150-450); RED BLOOD COUNT 3.28 MIL/MM3 (4.50-5.90); RED CELL DISTRIBUTION WIDTH 15.4 % (11.6-17.2); WHITE BLOOD COUNT 4.4 TH/MM3 (4.0-11.0)
[2017-08-15 07:09] LABS: BICARBONATE 26.8 MEQ/L (21.0-32.0); CALCIUM 8.4 MG/DL (8.5-10.1); CREATININE 2.03 MG/DL (0.60-1.30)
[2017-08-15] MEDS: DUONEB NEB SCH ×3 (08:28→20:00)
[2017-08-15] MEDS: SODIUM CHLORIDE 0.9% FLUSH 10 ML FLUSH IV FLUSH SCH ×2 (09:00→20:58)
[2017-08-15] MEDS ORDERED: LEVOFLOXACIN 250 MG TAB PO SCH (09:00)
[2017-08-15] MEDS: ACETAMINOPHEN/HYDROcodone 325 MG/5 MG TAB PO PRN ×2 (10:01→16:37)
[2017-08-15] MEDS: CLOPIDOGREL 75 MG TAB PO SCH (10:01)
[2017-08-15] MEDS: CLOTRIMAZOLE 1% CREAM 15 GM TOPICAL SCH ×2 (10:02→20:56)
[2017-08-15] MEDS: BACLOFEN 10 MG TAB PO SCH ×2 (10:02→20:55)
[2017-08-15] MEDS: CITALOPRAM HYDROBROMIDE 20 MG TAB PO SCH (10:02)
[2017-08-15] MEDS: NYSTATIN 100,000 U/GM PWD 15 GM BTL TOPICAL SCH ×2 (10:02→20:57)
[2017-08-15] MEDS: METOPROLOL TARTRATE 25 MG TAB PO SCH ×2 (10:02→20:55)
[2017-08-15] MEDS: CARVEDILOL 3.125 MG TAB PO SCH ×2 (10:02→20:55)
[2017-08-15] MEDS: PANTOPRAZOLE SOD 40 MG DELAYED RELEASE TAB PO SCH (10:02)
--- NOTE | 2017-08-15 11:33 | HHI.PR ---
Subjective Remarks Patient is awake and denies uremic sx including nausea and asterixis. He recently had a breathing treatment and lungs are clear. Objective Vital Signs Date Time Temp Pulse Resp B/P (MAP) Pulse Ox O2 Delivery O2 Flow Rate FiO2 08/15/17 08:31 97 Nasal Cannula 2.50 08/15/17 08:00 97.7 69 17 143/63 (89) 96 08/15/17 04:00 60 08/15/17 04:00 98.0 59 18 120/69 (86) 95 08/15/17 00:00 60 08/15/17 00:00 98.1 63 18 129/62 (84) 94 08/14/17 20:44 95 Nasal Cannula 2.00 08/14/17 20:00 57 08/14/17 20:00 98.0 59 16 125/58 (80) 93 08/14/17 16:00 98.0 56 21 111/56 (74) 99 08/14/17 12:00 97.6 63 20 107/60 (76) 100 I/O 08/14/17 08/14/17 08/14/17 08/15/17 08/15/17 08/15/17 07:00 15:00 23:00 07:00 15:00 23:00 Intake Total 1340 ml 820 ml 1240 ml Output Total 1000 ml 1300 ml 300 ml 2000 ml Balance 340 ml -1300 ml 520 ml -760 ml Intake Oral 240 ml 720 ml 240 ml IV Total 1100 ml 100 ml 1000 ml Output Urine Total 1000 ml 1300 ml 300 ml 2000 ml # Bowel Movements 1 0 1 Result Diagram: 08/15/17 0533 08/15/17 0533 Imaging Last Impressions Renal Ultrasound 08/14/17 0000 Signed Impressions: CONCLUSION: 1. Atrophic echogenic kidneys characteristic of medical renal disease. Nonobst ructing renal calcifications. Small bilateral renal cysts Head CT 08/12/171703 Signed Impressions: CONCLUSION: 1. No acute intracranial abnormality identified. The exam does demonstrate mil d cortical atrophy and microvascular ischemic demyelinative change.. Chest X-Ray 08/12/171703 Signed Impressions: CONCLUSION: Suspected minimal atelectasis and possible minimal effusions. Cervical Spine CT 08/12/17 0000 Signed Impressions: CONCLUSION: 1. Study is degraded by motion artifact. 2. No gross fracture or dislocation. 3. Degenerative changes. Objective Remarks GENERAL: Awake alert and conversive SKIN: Warm and dry. HEAD: Normocephalic. EYES: No scleral icterus. No injection or drainage. NECK: Supple, trachea midline. No JVD or lymphadenopathy. CARDIOVASCULAR: Regular rate and rhythm without murmurs, gallops, or rubs. RESPIRATORY: Breath sounds decreased at bases but are clear bilaterally. No accessory muscle use. GASTROINTESTINAL: Abdomen soft, non-tender, nondistended. MUSCULOSKELETAL: No cyanosis, or edema. BACK: Nontender without obvious deformity. No CVA tenderness. Medications and IVs Current Medications Medications (Trade) Dose Ordered Sig/Ken Route Start Time Stop Time Status Last Admin (Lipitor) 20 mg HS PO 08/12/17 21:00 08/14/17 19:42 (Coreg) 3.125 mg BID PO 08/12/17 21:00 08/15/17 10:02 (CeleXA) 20 mg DAILY PO 08/13/17 09:00 08/15/17 10:02 (Plavix) 75 mg DAILY PO 08/13/17 09:00 08/15/17 10:01 (Lotrimin 1% Cream) 1 applic BID TOPICAL 08/12/17 21:00 08/15/17 10:02 ([place] 5-325 Mg) 1 tab Q8HR PRN PO 08/12/17 20:15 08/15/17 10:01 (Milk Of Magnmelly Liq) 30 ml DAILY PRN PO 08/12/17 20:15 (Lopressor) 25 mg BID PO 08/12/17 21:30 08/15/17 10:02 (Flomax) 0.4 mg HS PO 08/12/17 21:00 08/14/17 19:42 Sodium Chloride 1,000 ml @ 75 mls/hr [id number] IV 08/12/17 21:00 08/15/17 02:35 (NS Flush) 2 ml UNSCH PRN IV FLUSH 08/12/17 20:30 (NS Flush) 2 ml BID IV FLUSH 08/12/17 21:00 08/14/17 19:42 (Tylenol) 650 mg Q4H PRN PO 08/12/17 20:30 (Narcan Inj) 0.4 mg UNSCH PRN IV PUSH 08/12/17 20:30 (Dulcolax Supp) 10 mg DAILY PRN RECTAL 08/12/17 20:30 (Protonix) 40 mg DAILY PO 08/13/17 09:00 08/15/17 10:02 (Mycostatin Powder) 1 applic Q12HR TOPICAL 08/13/17 09:00 08/15/17 10:02 (Duoneb Neb) 1 ampule Q6HR WHILE AWAKE NEB NEB 08/13/17 08:00 08/15/17 08:28 (Prinivil) 5 mg DAILY PO 08/13/17 09:00 Future Hold (Lioresal) 2.5 mg Q12HR PO 08/13/17 09:00 08/15/17 10:02 (Pill Splitter) 1 ea UNSCH PRN OTHER 08/12/17 21:45 Ceftriaxone Sodium 1000 mg/ Sodium Chloride 100 ml @ 200 mls/hr Q24H IV 08/13/17 20:00 08/14/17 19:41 Assessment and Plan Problem List: (1) Acute renal failure superimposed on stage 2 chronic kidney disease ICD Codes: N17.9 - Acute kidney failure, unspecified; N18.2 - Chronic kidney disease, stage 2 (mild) Status: Acute Plan: Renal function cont to improve. The renal U/S reveal no hydro but kidneys are echogenic. Baseline is ~1.6 and better with hydration. Off ACEI and Bactrim as well. (2) UTI (urinary tract infection) ICD Codes: N39.0 - Urinary tract infection, site not specified Status: Acute Plan: On antibiotics and asymptomatic (3) Altered mental status ICD Codes: R41.82 - Altered mental status, unspecified Status: Resolved Plan: Cont treat MARQUITA with hydration and avoid nephrotoxic agents. F/U renal recommendations. Assessment and Plan Unclear etiology of acute on chronic kidney disease but as it is improving with hydration, it appears to have been prerenal azotemia. Renal following will F/U closely and avoid nephrotoxic agents. Discussed Condition With patient Discharge Planning SNF Problem Qualifiers (1) Acute renal failure superimposed on stage 2 chronic kidney disease: Qualified Codes: N17.9 - Acute kidney failure, unspecified; N18.2 - Chronic kidney disease, stage 2 (mild) (2) UTI (urinary tract infection): Qualified Codes: N30.00 - Acute cystitis without hematuria (3) Altered mental status: Qualified Codes: R41.82 - Altered mental status, unspecified Rajendra Warner Aug 15, 2017 11:33
[2017-08-15 13:00] LABS: HEMATOCRIT 30.4 % (39.0-51.0); MEAN CELL VOLUME 92.9 FL (80.0-100.0); MEAN CORPUSCULAR HEMOGLOBIN 30.6 PG (27.0-34.0); MEAN CORPUSCULAR HGB CONC 32.9 % (32.0-36.0); PLATELET COUNT 116 TH/MM3 (150-450); RED BLOOD COUNT 3.27 MIL/MM3 (4.50-5.90); RED CELL DISTRIBUTION WIDTH 15.3 % (11.6-17.2); WHITE BLOOD COUNT 4.3 TH/MM3 (4.0-11.0)
[2017-08-15 13:20] LABS: ALBUMIN 2.9 GM/DL (3.4-5.0); AST (GOT) 16 U/L (15-37); BICARBONATE 28.1 MEQ/L (21.0-32.0); BLOOD UREA NITROGEN 40 MG/DL (7-18); CALCIUM 8.3 MG/DL (8.5-10.1); CHLORIDE 104 MEQ/L (98-107); CREATININE 1.93 MG/DL (0.60-1.30); GLOMERULAR FILTRATION RATE 34 ML/MIN (>89); GLUCOSE,RANDOM 157 MG/DL (74-106); SODIUM (NA) 139 MEQ/L (136-145)
[2017-08-15 13:21] LABS: ALT (GPT) 17 U/L (12-78)
[2017-08-15 13:23] LABS: ALKALINE PHOSPHATASE 81 U/L (45-117); TOTAL BILIRUBIN ADULT 0.3 MG/DL (0.2-1.0); TOTAL PROTEIN 6.4 GM/DL (6.4-8.2)
[2017-08-15] MEDS ORDERED: PHARMACY INFORMATION XX PRN (15:45)
[2017-08-15] MEDS ORDERED: ASP: Path resistant to other antimicrobials, culture proven PRN (15:45)
[2017-08-15] MEDS: ERTAPENEM INJ 1,000 MG in SODIUM CHLORIDE 0.9% INJ 100 ML IV SCH (16:36)
--- NOTE | 2017-08-15 17:20 | HHI.NPPN ---
Subjective Additional Remarks no acute complaints Objective Data Data Vital Signs Date Time Temp Pulse Resp B/P (MAP) Pulse Ox O2 Delivery O2 Flow Rate FiO2 08/15/17 16:00 97.6 56 17 118/56 (76) 98 08/15/17 12:00 97.6 73 17 145/67 (93) 96 08/15/17 08:31 97 Nasal Cannula 2.50 08/15/17 08:00 97.7 69 17 143/63 (89) 96 08/15/17 04:00 60 08/15/17 04:00 98.0 59 18 120/69 (86) 95 08/15/17 00:00 60 08/15/17 00:00 98.1 63 18 129/62 (84) 94 08/14/17 20:44 95 Nasal Cannula 2.00 08/14/17 20:00 57 08/14/17 20:00 98.0 59 16 125/58 (80) 93 -: 08/15/17 1248 08/15/17 1248 Physical Exam General Appearance: No Acute Distress Eyes Eye Exam: Pupils Equal Throat Throat Exam: Oral Mucosa [place] & Moist Neck Neck Exam: Neck Supple Pulmonary Resp Exam: Diminished Breath Sounds Cardiology CV Exam: Regular, Normal Sinus Rhythm Gastrointestinal/Abdomen GI Exam: Soft, Non-Tender Musculoskeletal MS Exam: Joints Intact Integumentary Skin Exam: Warm, Dry, Intact Extremeties Extremities Exam: No Edema Neurologic Neuro Exam: Alert, Awake Assessment/Plan Problem List: (1) MARQUITA (acute kidney injury) ICD Codes: N17.9 - Acute kidney failure, unspecified Status: Acute Plan: Acute kidney injury with a creatinine of 4.01 on admission MARQUITA possible prerenal vs ATN from infection and possible poor intake. Has chronic kidney disease with baseline creatinine of 1.4 to 1.6 in February of 2017 possible related to hypertension vs diabetes Renal ultrasound with echogenic kidneys suggestive of CKD. Potassium, calcium, and HCO3 normal and does not appear to be in fluid overload. Plan Renal function improving on IVFs -Creatinine down to 1.9 today 3.6 L UOP with kraft Continue to monitor electrolytes and UOP Continue to hold lisinopril and Bactrim. (2) Altered mental status ICD Codes: R41.82 - Altered mental status, unspecified Status: Resolved (3) UTI (urinary tract infection) ICD Codes: N39.0 - Urinary tract infection, site not specified Status: Acute Plan: Continue antibiotics per ID recommendation Renal dose antibiotics Problem Qualifiers (1) Altered mental status: Qualified Codes: R41.82 - Altered mental status, unspecified (2) UTI (urinary tract infection): Qualified Codes: N30.00 - Acute cystitis without hematuria Harris Jewell MD Aug 15, 2017 17:20
[2017-08-15 17:40] LABS: BACTERIA, URINE OCC /hpf; BILIRUBIN, URINE NEG (NEG); BLOOD, URINE MOD (NEG); GLUCOSE,URINE NEG (NEG); KETONE, URINE NEG (NEG); MUCUS URINE FEW /lpf (OCC); NITRITE,URINE NEG (NEG); URINE COLOR YELLOW (YELLW/STRAW); URINE LEUKOCYTE ESTERASE MOD (NEG)
--- NOTE | 2017-08-15 18:34 | HHI.IDPN ---
Subjective Subjective Remarks is a 81 y/o CM with PMHx of prostate problems with chronic indwelling kraft due to prostate issues. Patient is resident of [facility] and was admitted to [facility] for evaluation of fall and altered mental status while at rehab. Patient was being treated for UTI with oral bactrim for last few days [facility] per records. Patient complained of headache while at rehab. Per ambulance when they were there patient was really not responding to them much but when the put him on the truck they noted that he started speaking he was answering some questions. He was put in a cervical collar and backboard. On admission patient had no fever, tachycardia or overt signs of sepsis (of note patient was on bactrim [facility] for UTI). Patient has chronic kidney disease per nephrology notes.On admission, his Cr was 4.0. ID consulted for evaluation and Mment of UTI, encephalopathy. At time of my evaluation, patient is on the floor awake, alert, responsive to questions, eating his meal. Overnight events reviewed No fevers No rash No diarrhea Per RN [facility] patient has been wheel chair bound for years. RN informed me about the multiple organisms in the urine culture including Pseudomonas, Enterococcus faecalis as well as Proteus ESBL positive. 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 Vital Signs Date Time Temp Pulse Resp B/P (MAP) Pulse Ox O2 Delivery O2 Flow Rate FiO2 08/15/17 16:00 97.6 56 17 118/56 (76) 98 08/15/17 12:00 97.6 73 17 145/67 (93) 96 08/15/17 08:31 97 Nasal Cannula 2.50 08/15/17 08:00 97.7 69 17 143/63 (89) 96 08/15/17 04:00 60 08/15/17 04:00 98.0 59 18 120/69 (86) 95 08/15/17 00:00 60 08/15/17 00:00 98.1 63 18 129/62 (84) 94 08/14/17 20:44 95 Nasal Cannula 2.00 08/14/17 20:00 57 08/14/17 20:00 98.0 59 16 125/58 (80) 93 08/15/17 08/15/17 08/16/17 15:00 23:00 07:00 Intake Total 1000 ml 860 ml Output Total 1000 ml Balance 1000 ml -140 ml Intake Oral 760 ml IV Total 1000 ml 100 ml Output Urine Total 1000 ml # Bowel Movements 1 . Laboratory Tests Test 08/14/17 10:45 08/15/17 05:33 08/15/17 12:48 White Blood Count 5.7 TH/MM3 4.4 TH/MM3 4.3 TH/MM3 Red Blood Count 3.74 MIL/MM3 3.28 MIL/MM3 3.27 MIL/MM3 Hemoglobin 11.2 GM/DL 10.0 GM/DL 10.0 GM/DL Hematocrit 34.4 % 30.1 % 30.4 % Mean Corpuscular Volume 92.0 FL 91.5 FL 92.9 FL Mean Corpuscular Hemoglobin 29.9 PG 30.4 PG 30.6 PG Mean Corpuscular Hemoglobin Concent 32.5 % 33.2 % 32.9 % Red Cell Distribution Width 15.1 % 15.4 % 15.3 % Platelet Count 129 TH/MM3 114 TH/MM3 116 TH/MM3 Mean Platelet Volume 10.2 FL 10.5 FL 10.0 FL Neutrophils (%) (Auto) 69.8 % 66.6 % Lymphocytes (%) (Auto) 19.6 % 20.8 % Monocytes (%) (Auto) 7.9 % 8.2 % Eosinophils (%) (Auto) 2.4 % 4.1 % Basophils (%) (Auto) 0.3 % 0.3 % Neutrophils # (Auto) 4.0 TH/MM3 2.9 TH/MM3 Lymphocytes # (Auto) 1.1 TH/MM3 0.9 TH/MM3 Monocytes # (Auto) 0.4 TH/MM3 0.4 TH/MM3 Eosinophils # (Auto) 0.1 TH/MM3 0.2 TH/MM3 Basophils # (Auto) 0.0 TH/MM3 0.0 TH/MM3 CBC Comment DIFF FINAL DIFF FINAL Differential Comment Laboratory Tests Test 08/14/17 10:45 08/15/17 05:33 08/15/17 12:48 Blood Urea Nitrogen 46 MG/DL 46 MG/DL 40 MG/DL Creatinine 2.43 MG/DL 2.03 MG/DL 1.93 MG/DL Random Glucose 109 MG/DL 101 MG/DL 157 MG/DL Total Protein 7.1 GM/DL 6.4 GM/DL Albumin 3.4 GM/DL 2.9 GM/DL Calcium Level 8.7 MG/DL 8.4 MG/DL 8.3 MG/DL Alkaline Phosphatase 95 U/L 81 U/L Aspartate Amino Transf (AST/SGOT) 29 U/L 16 U/L Alanine Aminotransferase (ALT/SGPT) 20 U/L 17 U/L Total Bilirubin 0.5 MG/DL 0.3 MG/DL Sodium Level 139 MEQ/L 139 MEQ/L 139 MEQ/L Potassium Level 4.4 MEQ/L 4.7 MEQ/L 4.6 MEQ/L Chloride Level 103 MEQ/L 104 MEQ/L 104 MEQ/L Carbon Dioxide Level 26.1 MEQ/L 26.8 MEQ/L 28.1 MEQ/L Anion Gap 10 MEQ/L 8 MEQ/L 7 MEQ/L Estimat Glomerular Filtration Rate 26 ML/MIN 32 ML/MIN 34 ML/MIN Microbiology Date/Time Source Procedure Growth Status 08/15/17 17:29 Urine Catheterized Urine Urine Culture Pending Received Imaging Last Impressions Head CT 08/12/17 1704 Signed Impressions: CONCLUSION: 1. No acute intracranial abnormality identified. The exam does demonstrate mil d cortical atrophy and microvascular ischemic demyelinative change.. Chest X-Ray 08/12/17 1704 Signed Impressions: CONCLUSION: Suspected minimal atelectasis and possible minimal effusions. Cervical Spine CT 08/12/17 0000 Signed Impressions: CONCLUSION: 1. Study is degraded by motion artifact. 2. No gross fracture or dislocation. 3. Degenerative changes. Physical Exam GENERAL: This is a well-nourished, well-developed patient, in no apparent distress. SKIN: No rashes, ecchymoses or lesions. Cool and dry. HEAD: Atraumatic. Normocephalic. No temporal or scalp tenderness. EYES: Pupils equal round and reactive. Extraocular motions intact. No scleral icterus. No injection or drainage. ENT: Nose without bleeding, purulent drainage or septal hematoma. Throat without erythema, tonsillar hypertrophy or exudate. Uvula midline. Airway patent. NECK: Trachea midline. Supple, nontender, no meningeal signs. CARDIOVASCULAR: Regular rate and rhythm without murmurs, gallops, or rubs. RESPIRATORY: Clear to auscultation. Breath sounds equal bilaterally. No wheezes , rales, or rhonchi. GASTROINTESTINAL: Abdomen soft, non-tender, nondistended. MUSCULOSKELETAL: Extremities without clubbing, cyanosis, or edema. No joint tenderness, effusion, or edema noted. No calf tenderness. Negative Homans sign bilaterally. NEUROLOGICAL: Awake and alert. Non focal Psych cooperative IV line sites with no e/o infection. Assessment & Plan Remarks Gram negative UTI ? complicated. Has an indwelling Kraft catheter from [facility]. Has prostate issues. R/o Pyelonephritis. Acute metabolic encephalopathy: metabolic/renal, infection, bactrim. Acute renal failure: prerenal, bactrim induced AIN Recs Avoid Nephrotoxic agents Discontinue ceftriaxone IV Repeat UA with new Kraft insertion change Kraft Start ertapenem IV pending repeat urine cultures Start ampicillin oral US Kidney bladder with no evidence of pyelonephritis, atrophic kidneys, no stones. Follow cultures Follow clinically. Isabella Cronin MD Aug 15, 2017 18:34
[2017-08-15] MEDS: ATORVASTATIN 20 MG TAB PO SCH (20:55)
[2017-08-15] MEDS: TAMSULOSIN HCL 0.4 MG CAP PO SCH (20:55)
[2017-08-15] MEDS: AMOXICILLIN (TRIHYDRATE) 500 MG CAP PO SCH (22:12)
[2017-08-16] VITALS (9 sets, daily range): BP systolic 120–139; BP diastolic 60–69; PULSE 50–66; RESP 18–20; TEMP 97.4–98.9; O2SAT 93–99
[2017-08-16] MEDS: ACETAMINOPHEN/HYDROcodone 325 MG/5 MG TAB PO PRN ×2 (04:18→16:35)
[2017-08-16] MEDS: AMOXICILLIN (TRIHYDRATE) 500 MG CAP PO SCH ×3 (05:19→22:50)
[2017-08-16] MEDS: SODIUM CHLOR 0.45% 1000 ML INJ 1,000 ML IV SCH (05:26)
[2017-08-16 07:42] LABS: BASOPHIL % 0.3 % (0.0-2.0); EOSINOPHIL # 0.2 TH/MM3 (0-0.4); EOSINOPHIL % 3.8 % (0.0-4.0); HEMATOCRIT 31.3 % (39.0-51.0); HEMOGLOBIN 10.2 GM/DL (13.0-17.0); LYMPH % 21.3 % (9.0-44.0); MEAN CELL VOLUME 92.2 FL (80.0-100.0); MEAN CORPUSCULAR HEMOGLOBIN 29.9 PG (27.0-34.0); MEAN CORPUSCULAR HGB CONC 32.5 % (32.0-36.0); MEAN PLATELET VOLUME 10.7 FL (7.0-11.0); MONO % 8.4 % (0.0-8.0); MONOCYTE # 0.4 TH/MM3 (0-0.9); NEUT % 66.2 % (16.0-70.0); PLATELET COUNT 110 TH/MM3 (150-450); RED BLOOD COUNT 3.39 MIL/MM3 (4.50-5.90); RED CELL DISTRIBUTION WIDTH 15.2 % (11.6-17.2); WHITE BLOOD COUNT 4.5 TH/MM3 (4.0-11.0)
[2017-08-16 08:05] LABS: BICARBONATE 25.5 MEQ/L (21.0-32.0); CALCIUM 8.6 MG/DL (8.5-10.1); CREATININE 1.56 MG/DL (0.60-1.30)
--- NOTE | 2017-08-16 08:32 | HHI.PR ---
Subjective Remarks uneventful night Denies any CP, SOB Sat's maintained on 2l Objective Vital Signs Date Time Temp Pulse Resp B/P (MAP) Pulse Ox O2 Delivery O2 Flow Rate FiO2 08/16/17 04:00 98.0 55 19 120/69 (86) 95 08/16/17 00:07 50 08/16/17 00:00 98.1 59 19 125/67 (86) 93 08/15/17 20:19 98 Nasal Cannula 2.50 08/15/17 20:05 53 08/15/17 20:00 97.9 52 19 123/61 (81) 97 08/15/17 16:00 97.6 56 17 118/56 (76) 98 08/15/17 12:00 97.6 73 17 145/67 (93) 96 08/15/17 08:31 97 Nasal Cannula 2.50 I/O 08/15/17 08/15/17 08/15/17 08/16/17 08/16/17 08/16/17 07:00 15:00 23:00 07:00 15:00 23:00 Intake Total 1240 ml 1000 ml 860 ml 480 ml Output Total 2000 ml 1000 ml 500 ml Balance -760 ml 1000 ml -140 ml -20 ml Intake Oral 240 ml 760 ml 480 ml IV Total 1000 ml 1000 ml 100 ml Output Urine Total 2000 ml 1000 ml 500 ml # Bowel Movements 1 1 2 Result Diagram: 08/16/17 0630 08/16/17 0630 Imaging Current Medications Medications (Trade) Dose Ordered Sig/Ken Route Start Time Stop Time Status Last Admin (Lipitor) 20 mg HS PO 08/12/17 21:00 08/15/17 20:55 (Coreg) 3.125 mg BID PO 08/12/17 21:00 08/15/17 20:55 (CeleXA) 20 mg DAILY PO 08/13/17 09:00 08/15/17 10:02 (Plavix) 75 mg DAILY PO 08/13/17 09:00 08/15/17 10:01 (Lotrimin 1% Cream) 1 applic BID TOPICAL 08/12/17 21:00 08/15/17 20:56 ([place] 5-325 Mg) 1 tab Q8HR PRN PO 08/12/17 20:15 08/15/17 16:37 (Milk Of Magnesia Liq) 30 ml DAILY PRN PO 08/12/17 20:15 (Lopressor) 25 mg BID PO 08/12/17 21:30 08/15/17 20:55 (Flomax) 0.4 mg HS PO 08/12/17 21:00 08/15/17 20:55 Sodium Chloride 1,000 ml @ 75 mls/hr [id number] IV 08/12/17 21:00 08/16/17 05:26 (NS Flush) 2 ml UNSCH PRN IV FLUSH 08/12/17 20:30 (NS Flush) 2 ml BID IV FLUSH 08/12/17 21:00 08/14/17 19:42 (Tylenol) 650 mg Q4H PRN PO 08/12/17 20:30 08/16/17 02:07 (Narcan Inj) 0.4 mg UNSCH PRN IV PUSH 08/12/17 20:30 (Dulcolax Supp) 10 mg DAILY PRN RECTAL 08/12/17 20:30 (Protonix) 40 mg DAILY PO 08/13/17 09:00 08/15/17 10:02 (Mycostatin Powder) 1 applic Q12HR TOPICAL 08/13/17 09:00 08/15/17 20:57 (Duoneb Neb) 1 ampule Q6HR WHILE AWAKE NEB NEB 08/13/17 08:00 08/16/17 08:33 (Prinivil) 5 mg DAILY PO 08/13/17 09:00 Future Hold (Lioresal) 2.5 mg Q12HR PO 08/13/17 09:00 08/15/17 20:55 (Pill Splitter) 1 ea UNSCH PRN OTHER 08/12/17 21:45 (ASP Crit: Path resist to other, cult proven) 1 UNSCH X1 PRN .XX 08/15/17 15:45 08/16/17 15:44 ([facility] [place] 1 UNSCH X1 PRN XX 08/15/17 15:45 08/16/17 15:44 Ertapenem 1000 mg/ Sodium Chloride 100 ml @ 200 mls/hr Q24H IV 08/15/17 16:00 08/15/17 16:36 (Trimox) 500 mg Q8HR PO 08/15/17 22:00 08/16/17 05:19 Objective Remarks GENERAL: This is a well-nourished, well-developed patient, in no apparent distress. SKIN: No rashes, ecchymoses or lesions. Cool and dry. HEAD: Atraumatic. Normocephalic. No temporal or scalp tenderness. EYES: Pupils equal round and reactive. Extraocular motions intact. No scleral icterus. No injection or drainage. ENT: Nose without bleeding, purulent drainage or septal hematoma. Throat without erythema, tonsillar hypertrophy or exudate. Uvula midline. Airway patent. NECK: Trachea midline. Supple, nontender, no meningeal signs. CARDIOVASCULAR: Regular rate and rhythm without murmurs, gallops, or rubs. RESPIRATORY: Clear to auscultation. Breath sounds equal bilaterally. No wheezes , rales, or rhonchi. GASTROINTESTINAL: Abdomen soft, non-tender, nondistended. MUSCULOSKELETAL: Extremities without clubbing, cyanosis, or edema. No joint tenderness, effusion, or edema noted. No calf tenderness. Negative Homans sign bilaterally. NEUROLOGICAL: Awake and alert. Medications and IVs Current Medications Medications (Trade) Dose Ordered Sig/Ken Route Start Time Stop Time Status Last Admin (Lipitor) 20 mg HS PO 08/12/17 21:00 08/15/17 20:55 (Coreg) 3.125 mg BID PO 08/12/17 21:00 08/15/17 20:55 (CeleXA) 20 mg DAILY PO 08/13/17 09:00 08/15/17 10:02 (Plavix) 75 mg DAILY PO 08/13/17 09:00 08/15/17 10:01 (Lotrimin 1% Cream) 1 applic BID TOPICAL 08/12/17 21:00 08/15/17 20:56 ([place] 5-325 Mg) 1 tab Q8HR PRN PO 08/12/17 20:15 08/15/17 16:37 (Milk Of Magnesia Liq) 30 ml DAILY PRN PO 08/12/17 20:15 (Lopressor) 25 mg BID PO 08/12/17 21:30 08/15/17 20:55 (Flomax) 0.4 mg HS PO 08/12/17 21:00 08/15/17 20:55 Sodium Chloride 1,000 ml @ 75 mls/hr [id number] IV 08/12/17 21:00 08/16/17 05:26 (NS Flush) 2 ml UNSCH PRN IV FLUSH 08/12/17 20:30 (NS Flush) 2 ml BID IV FLUSH 08/12/17 21:00 08/14/17 19:42 (Tylenol) 650 mg Q4H PRN PO 08/12/17 20:30 08/16/17 02:07 (Narcan Inj) 0.4 mg UNSCH PRN IV PUSH 08/12/17 20:30 (Dulcolax Supp) 10 mg DAILY PRN RECTAL 08/12/17 20:30 (Protonix) 40 mg DAILY PO 08/13/17 09:00 08/15/17 10:02 (Mycostatin Powder) 1 applic Q12HR TOPICAL 08/13/17 09:00 08/15/17 20:57 (Duoneb Neb) 1 ampule Q6HR WHILE AWAKE NEB NEB 08/13/17 08:00 08/15/17 20:00 (Prinivil) 5 mg DAILY PO 08/13/17 09:00 Future Hold (Lioresal) 2.5 mg Q12HR PO 08/13/17 09:00 08/15/17 20:55 (Pill Splitter) 1 ea UNSCH PRN OTHER 08/12/17 21:45 (ASP Crit: Path resist to other, cult proven) 1 UNSCH X1 PRN .XX 08/15/17 15:45 08/16/17 15:44 [place] [facility] [place] 1 UNSCH X1 PRN XX 08/15/17 15:45 08/16/17 15:44 Ertapenem 1000 mg/ Sodium Chloride 100 ml @ 200 mls/hr Q24H IV 08/15/17 16:00 08/15/17 16:36 (Trimox) 500 mg Q8HR PO 08/15/17 22:00 08/16/17 05:19 Assessment and Plan Problem List: (1) MARQUITA (acute kidney injury) ICD Codes: N17.9 - Acute kidney failure, unspecified Status: Acute Plan: IVF, ARABELLA and Bactrim held, per renal, Work up in progress (2) UTI (urinary tract infection) ICD Codes: N39.0 - Urinary tract infection, site not specified Status: Acute Plan: Bactrim held, Follow culture and Sensitivity (3) COPD (chronic obstructive pulmonary disease) ICD Codes: J44.9 - Chronic obstructive pulmonary disease, unspecified Plan: Maintain sat's, Bronchodilators (4) CHF (congestive heart failure) ICD Codes: I50.9 - Heart failure, unspecified Plan: Stable, cont cardiac medication Assessment and Plan 08/16/17- VSS afebrile. renal functions impreoving GFR 43, creatinine 1.5 this am. ID following Urine grew ESBL, Enterococcus Faecalis, Pseudomonas Aeruginosa , he is on Invanx, Ampicillin. BP stable, PT activity. DC back to snf when stable. Problem Qualifiers (1) UTI (urinary tract infection): Qualified Codes: N30.00 - Acute cystitis without hematuria Etta Branham Aug 16, 2017 08:32
[2017-08-16] MEDS: DUONEB NEB SCH ×3 (08:33→20:19)
[2017-08-16] MEDS: SODIUM CHLORIDE 0.9% FLUSH 10 ML FLUSH IV FLUSH SCH ×2 (09:00→22:36)
[2017-08-16] MEDS: CLOTRIMAZOLE 1% CREAM 15 GM TOPICAL SCH ×2 (09:00→22:37)
[2017-08-16] MEDS: PANTOPRAZOLE SOD 40 MG DELAYED RELEASE TAB PO SCH (09:20)
[2017-08-16] MEDS: CARVEDILOL 3.125 MG TAB PO SCH ×2 (09:20→22:36)
[2017-08-16] MEDS: CITALOPRAM HYDROBROMIDE 20 MG TAB PO SCH (09:20)
[2017-08-16] MEDS: BACLOFEN 10 MG TAB PO SCH ×2 (09:20→22:36)
[2017-08-16] MEDS: CLOPIDOGREL 75 MG TAB PO SCH (09:20)
[2017-08-16] MEDS: METOPROLOL TARTRATE 25 MG TAB PO SCH ×2 (09:20→22:36)
[2017-08-16] MEDS: NYSTATIN 100,000 U/GM PWD 15 GM BTL TOPICAL SCH ×2 (09:21→22:37)
--- NOTE | 2017-08-16 10:41 | HHI.NPPN ---
Subjective Additional Remarks Denies any shortness of breath, no edema. Creatinine is improving at 1.56 today. (Sophy Dobbins) Review of Systems Respiratory Respiratory Remarks Denies SOB (Sophy Dobbins) Cardiovascular Cardiac Remarks Denies CP (Sophy Dobbins) Gastrointestinal GI Remarks Denies abdominal pain (Sophy Dobbins) Objective Data Data Vital Signs Date Time Temp Pulse Resp B/P (MAP) Pulse Ox O2 Delivery O2 Flow Rate FiO2 08/16/17 08:33 98 Nasal Cannula 3.00 08/16/17 04:00 98.0 55 19 120/69 (86) 95 08/16/17 00:07 50 08/16/17 00:00 98.1 59 19 125/67 (86) 93 08/15/17 20:19 98 Nasal Cannula 2.50 08/15/17 20:05 53 08/15/17 20:00 97.9 52 19 123/61 (81) 97 08/15/17 16:00 97.6 56 17 118/56 (76) 98 08/15/17 12:00 97.6 73 17 145/67 (93) 96 (Sophy Dobbins) -: 08/16/17 0630 08/16/17 0630 Microbiology 08/15/17 Urine Culture, Received Pending Imaging Last Impressions Renal Ultrasound 08/14/17 0000 Signed Impressions: CONCLUSION: 1. Atrophic echogenic kidneys characteristic of medical renal disease. Nonobst ructing renal calcifications. Small bilateral renal cysts Head CT 08/12/17 1704 Signed Impressions: CONCLUSION: 1. No acute intracranial abnormality identified. The exam does demonstrate mil d cortical atrophy and microvascular ischemic demyelinative change.. Chest X-Ray 08/12/17 1704 Signed Impressions: CONCLUSION: Suspected minimal atelectasis and possible minimal effusions. Cervical Spine CT 08/12/17 0000 Signed Impressions: CONCLUSION: 1. Study is degraded by motion artifact. 2. No gross fracture or dislocation. 3. Degenerative changes. (Sophy Dobbins) Physical Exam General Appearance: No Acute Distress (Sophy Dobbins) Eyes Eye Exam: Pupils Equal (Gellermann,Sophy M. VOIP NETWORK TECHNICIAN) Throat Throat Exam: Oral Mucosa [place] & Moist (Sophy DobbinsP) Neck Neck Exam: Neck Supple (Sophy DobbinsP) Pulmonary Resp Exam: Diminished Breath Sounds (Sophy DobbinsP) Cardiology CV Exam: Regular, Normal Sinus Rhythm (Sophy Dobbins. VOIP NETWORK TECHNICIAN) Gastrointestinal/Abdomen GI Exam: Soft, Non-Tender (Sophy DobbinsP) Musculoskeletal MS Exam: Joints Intact (Sophy DobbinsP) Integumentary Skin Exam: Warm, Dry, Intact (Sophy DobbinsP) Extremeties Extremities Exam: No Edema (Sophy Dobbins) Neurologic Neuro Exam: Alert, Awake (Sophy Dobbins) Assessment/Plan Problem List: (1) MARQUITA (acute kidney injury) ICD Codes: N17.9 - Acute kidney failure, unspecified Status: Acute Plan: Acute kidney injury with a creatinine of 4.01 on admission MARQUITA possible prerenal vs ATN from infection and possible poor intake. Has chronic kidney disease with baseline creatinine of 1.4 to 1.6 in February of 2017 possible related to hypertension vs diabetes Renal ultrasound with echogenic kidneys suggestive of CKD. Potassium, calcium, and HCO3 normal and does not appear to be in fluid overload. Plan Renal function has improved to baseline will discontinue IVF Encourage PO intake Continue to monitor electrolytes and UOP Continue to hold lisinopril and Bactrim. Avoid nephrotoxic agents (2) Altered mental status ICD Codes: R41.82 - Altered mental status, unspecified Status: Resolved Plan: Improving (3) UTI (urinary tract infection) ICD Codes: N39.0 - Urinary tract infection, site not specified Status: Acute Plan: Continue antibiotics per ID recommendation Renal dose antibiotics (Sophy Dobbins) Problem List: (1) MARQUITA (acute kidney injury) ICD Codes: N17.9 - Acute kidney failure, unspecified Status: Acute Plan: Acute kidney injury with a creatinine of 4.01 on admission MARQUITA possible prerenal vs ATN from infection and possible poor intake. Has chronic kidney disease with baseline creatinine of 1.4 to 1.6 in February of 2017 possible related to hypertension vs diabetes Renal ultrasound with echogenic kidneys suggestive of CKD. Potassium, calcium, and HCO3 normal and does not appear to be in fluid overload. Plan Renal function has improved to baseline will discontinue IVF Encourage PO intake Continue to monitor electrolytes and UOP Continue to hold lisinopril and Bactrim. Avoid nephrotoxic agents. Patient seen and examined, agree with above. Creatinine is close to the baseline. (2) Altered mental status ICD Codes: R41.82 - Altered mental status, unspecified Status: Resolved Plan: Improving (3) UTI (urinary tract infection) ICD Codes: N39.0 - Urinary tract infection, site not specified Status: Acute Plan: Continue antibiotics per ID recommendation Renal dose antibiotics (Sterling Metcalf MD) Problem Qualifiers (1) Altered mental status: Qualified Codes: R41.82 - Altered mental status, unspecified (2) UTI (urinary tract infection): Qualified Codes: N30.00 - Acute cystitis without hematuria Sophy Dobbins Aug 16, 2017 10:41 Sterling Metcalf MD Aug 16, 2017 22:21
[2017-08-16] MEDS: ERTAPENEM INJ 1,000 MG in SODIUM CHLORIDE 0.9% INJ 100 ML IV SCH (16:36)
[2017-08-16] MEDS: TAMSULOSIN HCL 0.4 MG CAP PO SCH (22:36)
[2017-08-16] MEDS: ATORVASTATIN 20 MG TAB PO SCH (22:36)
[2017-08-17] VITALS (8 sets, daily range): BP systolic 126–172; BP diastolic 58–74; PULSE 57–68; RESP 16–18; TEMP 97.6–98.2; O2SAT 96–100
[2017-08-17] MEDS: ACETAMINOPHEN/HYDROcodone 325 MG/5 MG TAB PO PRN (02:31)
[2017-08-17] MEDS: AMOXICILLIN (TRIHYDRATE) 500 MG CAP PO SCH ×2 (05:10→13:42)
--- NOTE | 2017-08-17 08:05 | HHI.PR ---
Subjective Remarks Nauseated this am Objective Vital Signs Date Time Temp Pulse Resp B/P (MAP) Pulse Ox O2 Delivery O2 Flow Rate FiO2 08/17/17 04:00 97.6 59 16 140/63 (88) 97 08/17/17 00:12 98.1 68 18 159/70 (99) 100 08/16/17 23:28 61 08/16/17 20:19 94 Nasal Cannula 3.00 08/16/17 19:50 98.9 66 18 135/63 (87) 96 08/16/17 12:00 97.6 60 20 139/60 (86) 95 08/16/17 08:33 98 Nasal Cannula 3.00 08/16/17 08:00 97.4 52 18 133/68 (89) 99 I/O 08/16/17 08/16/17 08/16/17 08/17/17 08/17/17 08/17/17 06:59 14:59 22:59 06:59 14:59 22:59 Intake Total 480 ml 1470 ml Output Total 500 ml 800 ml 2200 ml Balance -20 ml 670 ml -2200 ml Intake Oral 480 ml 620 ml IV Total 850 ml Output Urine Total 500 ml 800 ml 2200 ml # Bowel Movements 2 1 1 Result Diagram: 08/16/17 0630 08/16/17 0630 Imaging Last Impressions Renal Ultrasound 08/14/17 0000 Signed Impressions: CONCLUSION: 1. Atrophic echogenic kidneys characteristic of medical renal disease. Nonobst ructing renal calcifications. Small bilateral renal cysts Head CT 08/12/17 1704 Signed Impressions: CONCLUSION: 1. No acute intracranial abnormality identified. The exam does demonstrate mil d cortical atrophy and microvascular ischemic demyelinative change.. Chest X-Ray 08/12/17 170 Signed Impressions: CONCLUSION: Suspected minimal atelectasis and possible minimal effusions. Cervical Spine CT 08/12/17 0000 Signed Impressions: CONCLUSION: 1. Study is degraded by motion artifact. 2. No gross fracture or dislocation. 3. Degenerative changes. Objective Remarks GENERAL: This is a well-nourished, well-developed patient, in no apparent distress. SKIN: No rashes, ecchymoses or lesions. Cool and dry. HEAD: Atraumatic. Normocephalic. No temporal or scalp tenderness. EYES: Pupils equal round and reactive. Extraocular motions intact. No scleral icterus. No injection or drainage. ENT: Nose without bleeding, purulent drainage or septal hematoma. Throat without erythema, tonsillar hypertrophy or exudate. Uvula midline. Airway patent. NECK: Trachea midline. Supple, nontender, no meningeal signs. CARDIOVASCULAR: Regular rate and rhythm without murmurs, gallops, or rubs. RESPIRATORY: Clear to auscultation. Breath sounds equal bilaterally. No wheezes , rales, or rhonchi. GASTROINTESTINAL: Abdomen soft, non-tender, nondistended, + BS MUSCULOSKELETAL: Extremities without clubbing, cyanosis, or edema. No joint tenderness, effusion, or edema noted. No calf tenderness. Negative Homans sign bilaterally. NEUROLOGICAL: Awake and alert. Medications and IVs Current Medications Medications (Trade) Dose Ordered Sig/Ken Route Start Time Stop Time Status Last Admin (Lipitor) 20 mg HS PO 08/12/17 21:00 08/16/17 22:36 (Coreg) 3.125 mg BID PO 08/12/17 21:00 08/16/17 22:36 (CeleXA) 20 mg DAILY PO 08/13/17 09:00 08/16/17 09:20 (Plavix) 75 mg DAILY PO 08/13/17 09:00 08/16/17 09:20 (Lotrimin 1% Cream) 1 applic BID TOPICAL 08/12/17 21:00 08/16/17 22:37 ([place] 5-325 Mg) 1 tab Q8HR PRN PO 08/12/17 20:15 08/17/17 02:31 (Milk Of Magnesia Liq) 30 ml DAILY PRN PO 08/12/17 20:15 (Lopressor) 25 mg BID PO 08/12/17 21:30 08/16/17 22:36 (Flomax) 0.4 mg HS PO 08/12/17 21:00 08/16/17 22:36 (NS Flush) 2 ml UNSCH PRN IV FLUSH 08/12/17 20:30 (NS Flush) 2 ml BID IV FLUSH 08/12/17 21:00 08/16/17 22:36 (Tylenol) 650 mg Q4H PRN PO 08/12/17 20:30 08/16/17 02:07 (Narcan Inj) 0.4 mg UNSCH PRN IV PUSH 08/12/17 20:30 (Dulcolax Supp) 10 mg DAILY PRN RECTAL 08/12/17 20:30 (Protonix) 40 mg DAILY PO 08/13/17 09:00 08/16/17 09:20 (Mycostatin Powder) 1 applic Q12HR TOPICAL 08/13/17 09:00 08/16/17 22:37 (Duoneb Neb) 1 ampule Q6HR WHILE AWAKE NEB NEB 08/13/17 08:00 08/16/17 20:19 (Prinivil) 5 mg DAILY PO 08/13/17 09:00 Future Hold (Lioresal) 2.5 mg Q12HR PO 08/13/17 09:00 08/16/17 22:36 (Pill Splitter) 1 ea UNSCH PRN OTHER 08/12/17 21:45 Ertapenem 1000 mg/ Sodium Chloride 100 ml @ 200 mls/hr Q24H IV 08/15/17 16:00 08/16/17 16:36 (Trimox) 500 mg Q8HR PO 08/15/17 22:00 08/17/17 05:10 Assessment and Plan Problem List: (1) MARQUITA (acute kidney injury) ICD Codes: N17.9 - Acute kidney failure, unspecified Status: Acute Plan: IVF, ARABELLA and Bactrim held, per renal, Work up in progress (2) UTI (urinary tract infection) ICD Codes: N39.0 - Urinary tract infection, site not specified Status: Acute Plan: Bactrim held, Follow culture and Sensitivity (3) COPD (chronic obstructive pulmonary disease) ICD Codes: J44.9 - Chronic obstructive pulmonary disease, unspecified Plan: Maintain sat's, Bronchodilators (4) CHF (congestive heart failure) ICD Codes: I50.9 - Heart failure, unspecified Plan: Stable, cont cardiac medication Assessment and Plan 08/16/17- VSS afebrile. renal functions impreoving GFR 43, creatinine 1.5 this am. ID following Urine grew ESBL, Enterococcus Faecalis, Pseudomonas Aeruginosa , he is on Invanx, Ampicillin. BP stable, PT activity. DC back to snf when stable. 08/17/17- VSS afebrile he voices he is nauseated this am,related to medications. IVF stopped, renal function back to baseline .Being followed by ID for UTI. New urine sent 08/15, culture negative x 24H. Continue PT activity, Likely Dc back to [facility] in am if cleared by ID. Problem Qualifiers (1) UTI (urinary tract infection): Qualified Codes: N30.00 - Acute cystitis without hematuria Etta Branham Aug 17, 2017 08:04
[2017-08-17] MEDS ORDERED: PROMETHAZINE HCL 25 MG TAB PO PRN (08:15)
[2017-08-17] MEDS: SODIUM CHLORIDE 0.9% FLUSH 10 ML FLUSH IV FLUSH SCH ×2 (08:49→21:43)
[2017-08-17] MEDS: BACLOFEN 10 MG TAB PO SCH ×2 (08:49→21:42)
[2017-08-17] MEDS: CLOPIDOGREL 75 MG TAB PO SCH (08:49)
[2017-08-17] MEDS: CITALOPRAM HYDROBROMIDE 20 MG TAB PO SCH (08:49)
[2017-08-17] MEDS: METOPROLOL TARTRATE 25 MG TAB PO SCH ×2 (08:49→21:42)
[2017-08-17] MEDS: CARVEDILOL 3.125 MG TAB PO SCH ×2 (08:49→21:43)
[2017-08-17] MEDS: PANTOPRAZOLE SOD 40 MG DELAYED RELEASE TAB PO SCH (08:49)
[2017-08-17] MEDS: CLOTRIMAZOLE 1% CREAM 15 GM TOPICAL SCH ×2 (08:50→21:43)
[2017-08-17] MEDS: NYSTATIN 100,000 U/GM PWD 15 GM BTL TOPICAL SCH ×2 (08:50→21:43)
--- NOTE | 2017-08-17 15:34 | HHI.NPPN ---
Subjective Additional Remarks Denies any shortness of breath, no edema. Appears anxious (Sophy Dobbins) Review of Systems Respiratory Respiratory Remarks Denies SOB (Sophy Dobbins) Cardiovascular Cardiac Remarks Denies CP (Sophy Dobbins) Gastrointestinal GI Remarks Denies abdominal pain (Sophy Dobbins) Objective Data Data Vital Signs Date Time Temp Pulse Resp B/P (MAP) Pulse Ox O2 Delivery O2 Flow Rate FiO2 08/17/17 12:00 97.9 57 18 150/65 (93) 100 08/17/17 08:22 99 Nasal Cannula 3.00 08/17/17 08:00 97.6 61 18 126/58 (80) 97 08/17/17 04:00 97.6 59 16 140/63 (88) 97 08/17/17 00:12 98.1 68 18 159/70 (99) 100 08/16/17 23:28 61 08/16/17 20:19 94 Nasal Cannula 3.00 08/16/17 19:50 98.9 66 18 135/63 (87) 96 (Sophy Dobbins) -: 08/16/17 0630 08/16/17 0630 Physical Exam General Appearance: No Acute Distress (Sophy Dobbins) Eyes Eye Exam: Pupils Equal (Sophy Dobbins) Throat Throat Exam: Oral Mucosa [place] & Moist (Sophy Dobbins) Neck Neck Exam: Neck Supple (Sophy Dobbins) Pulmonary Resp Exam: Diminished Breath Sounds (Sophy Dobbins) Cardiology CV Exam: Regular, Normal Sinus Rhythm (Sophy Dobbins) Gastrointestinal/Abdomen GI Exam: Soft, Non-Tender (Sophy Dobbins) Musculoskeletal MS Exam: Joints Intact (Sophy Dobbins) Integumentary Skin Exam: Warm, Dry, Intact (Sophy Dobbins) Extremeties Extremities Exam: No Edema (Sophy Dobbins) Neurologic Neuro Exam: Alert, Awake (Sophy Dobbins) Assessment/Plan Problem List: (1) MARQUITA (acute kidney injury) ICD Codes: N17.9 - Acute kidney failure, unspecified Status: Acute Plan: Acute kidney injury with a creatinine of 4.01 on admission MARQUITA possible prerenal vs ATN from infection and possible poor intake. Has chronic kidney disease with baseline creatinine of 1.4 to 1.6 in February of 2017 possible related to hypertension vs diabetes Renal ultrasound with echogenic kidneys suggestive of CKD. Plan Renal function has improved to baseline Encourage PO intake Continue to monitor electrolytes and UOP Avoid nephrotoxic agents. Possible discharge to [facility] tomorrow (2) Altered mental status ICD Codes: R41.82 - Altered mental status, unspecified Status: Resolved Plan: Improving (3) UTI (urinary tract infection) ICD Codes: N39.0 - Urinary tract infection, site not specified Status: Acute Plan: Continue antibiotics per ID recommendation Renal dose antibiotics (Sophy Dobbins) Problem List: (1) MARQUITA (acute kidney injury) ICD Codes: N17.9 - Acute kidney failure, unspecified Status: Acute Plan: Acute kidney injury with a creatinine of 4.01 on admission MARQUITA possible prerenal vs ATN from infection and possible poor intake. Has chronic kidney disease with baseline creatinine of 1.4 to 1.6 in February of 2017 possible related to hypertension vs diabetes Renal ultrasound with echogenic kidneys suggestive of CKD. Plan Renal function has improved to baseline Encourage PO intake Continue to monitor electrolytes and UOP Avoid nephrotoxic agents. Possible discharge to [facility] tomorrow. Patient seen and examined, agree with above. Creatinine is improving. (2) Altered mental status ICD Codes: R41.82 - Altered mental status, unspecified Status: Resolved Plan: Improving (3) UTI (urinary tract infection) ICD Codes: N39.0 - Urinary tract infection, site not specified Status: Acute Plan: Continue antibiotics per ID recommendation Renal dose antibiotics (Sterling Metcalf MD) Problem Qualifiers (1) Altered mental status: Qualified Codes: R41.82 - Altered mental status, unspecified (2) UTI (urinary tract infection): Qualified Codes: N30.00 - Acute cystitis without hematuria Sophy Dobbins Aug 17, 2017 15:34 Sterling Metcalf MD Aug 17, 2017 21:25
[2017-08-17] MEDS: ERTAPENEM INJ 1,000 MG in SODIUM CHLORIDE 0.9% INJ 100 ML IV SCH (16:56)
[2017-08-17] MEDS ORDERED: DIFL100T PO (17:47)
--- NOTE | 2017-08-17 17:48 | HHI.IDPN ---
Subjective Subjective Remarks is a 81 y/o CM with PMHx of prostate problems with chronic indwelling kraft due to prostate issues. Patient is resident of [facility] and was admitted to [facility] for evaluation of fall and altered mental status while at rehab. Patient was being treated for UTI with oral bactrim for last few days DENTAL FINANCIAL COORDINATOR per records. Patient complained of headache while at rehab. Per ambulance when they were there patient was really not responding to them much but when the put him on the truck they noted that he started speaking he was answering some questions. He was put in a cervical collar and backboard. On admission patient had no fever, tachycardia or overt signs of sepsis (of note patient was on bactrim DENTAL FINANCIAL COORDINATOR for UTI). Patient has chronic kidney disease per nephrology notes.On admission, his Cr was 4.0. ID consulted for evaluation and Mment of UTI, encephalopathy. At time of my evaluation, patient is on the floor awake, alert, responsive to questions, eating his meal. Overnight events reviewed No fevers No rash No diarrhea Per RN dw rehab patient has been wheel chair bound for years. RN informed me about the multiple organisms in the urine culture including Pseudomonas, Enterococcus faecalis as well as Proteus ESBL positive. 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 Vital Signs Date Time Temp Pulse Resp B/P (MAP) Pulse Ox O2 Delivery O2 Flow Rate FiO2 08/17/17 16:00 98.2 67 18 161/74 (103) 98 08/17/17 16:00 97.8 58 18 170/72 (104) 99 08/17/17 12:00 97.9 57 18 150/65 (93) 100 08/17/17 08:22 99 Nasal Cannula 3.00 08/17/17 08:00 97.6 61 18 126/58 (80) 97 08/17/17 04:00 97.6 59 16 140/63 (88) 97 08/17/17 00:12 98.1 68 18 159/70 (99) 100 08/16/17 23:28 61 08/16/17 20:19 94 Nasal Cannula 3.00 08/16/17 19:50 98.9 66 18 135/63 (87) 96 . Laboratory Tests Test 08/16/17 06:30 White Blood Count 4.5 TH/MM3 Red Blood Count 3.39 MIL/MM3 Hemoglobin 10.2 GM/DL Hematocrit 31.3 % Mean Corpuscular Volume 92.2 FL Mean Corpuscular Hemoglobin 29.9 PG Mean Corpuscular Hemoglobin Concent 32.5 % Red Cell Distribution Width 15.2 % Platelet Count 110 TH/MM3 Mean Platelet Volume 10.7 FL Neutrophils (%) (Auto) 66.2 % Lymphocytes (%) (Auto) 21.3 % Monocytes (%) (Auto) 8.4 % Eosinophils (%) (Auto) 3.8 % Basophils (%) (Auto) 0.3 % Neutrophils # (Auto) 3.0 TH/MM3 Lymphocytes # (Auto) 1.0 TH/MM3 Monocytes # (Auto) 0.4 TH/MM3 Eosinophils # (Auto) 0.2 TH/MM3 Basophils # (Auto) 0.0 TH/MM3 CBC Comment DIFF FINAL Differential Comment Laboratory Tests Test 08/16/17 06:30 Blood Urea Nitrogen 40 MG/DL Creatinine 1.56 MG/DL Random Glucose 105 MG/DL Calcium Level 8.6 MG/DL Sodium Level 136 MEQ/L Potassium Level 4.8 MEQ/L Chloride Level 103 MEQ/L Carbon Dioxide Level 25.5 MEQ/L Anion Gap 8 MEQ/L Estimat Glomerular Filtration Rate 43 ML/MIN Microbiology Date/Time Source Procedure Growth Status 08/15/17 17:29 Urine Catheterized Urine Urine Culture - Final Estephania Albicans Complete Imaging Last Impressions Head CT 08/12/17 121 Signed Impressions: CONCLUSION: 1. No acute intracranial abnormality identified. The exam does demonstrate mil d cortical atrophy and microvascular ischemic demyelinative change.. Chest X-Ray 08/12/17 602 Signed Impressions: CONCLUSION: Suspected minimal atelectasis and possible minimal effusions. Cervical Spine CT 08/12/17 0000 Signed Impressions: CONCLUSION: 1. Study is degraded by motion artifact. 2. No gross fracture or dislocation. 3. Degenerative changes. Physical Exam GENERAL: This is a well-nourished, well-developed patient, in no apparent distress. SKIN: No rashes, ecchymoses or lesions. Cool and dry. HEAD: Atraumatic. Normocephalic. No temporal or scalp tenderness. EYES: Pupils equal round and reactive. Extraocular motions intact. No scleral icterus. No injection or drainage. ENT: Nose without bleeding, purulent drainage or septal hematoma. Throat without erythema, tonsillar hypertrophy or exudate. Uvula midline. Airway patent. NECK: Trachea midline. Supple, nontender, no meningeal signs. CARDIOVASCULAR: Regular rate and rhythm without murmurs, gallops, or rubs. RESPIRATORY: Clear to auscultation. Breath sounds equal bilaterally. No wheezes , rales, or rhonchi. GASTROINTESTINAL: Abdomen soft, non-tender, nondistended. MUSCULOSKELETAL: Extremities without clubbing, cyanosis, or edema. No joint tenderness, effusion, or edema noted. No calf tenderness. Negative Homans sign bilaterally. NEUROLOGICAL: Awake and alert. Non focal Psych cooperative IV line sites with no e/o infection. Assessment & Plan Remarks Gram negative UTI ? complicated. Has an indwelling Kraft catheter from [facility]. Has prostate issues. R/o Pyelonephritis. Treated Estephania UTI Acute metabolic encephalopathy: metabolic/renal, infection, bactrim. Acute renal failure: prerenal, bactrim induced AIN Recs DC IV antibiotics. Start Diflucan for 5 days. Ok to DC from ID standpoint. Will sign off Isabella Cronin MD Aug 17, 2017 17:48
[2017-08-17] MEDS: TAMSULOSIN HCL 0.4 MG CAP PO SCH (21:42)
[2017-08-17] MEDS: FLUCONAZOLE 100 MG TAB PO SCH (21:43)
[2017-08-17] MEDS: ATORVASTATIN 20 MG TAB PO SCH (21:43)
[2017-08-18] VITALS: BP 137/62; PULSE 63; RESP 16; TEMP 97.7; O2SAT 92
[2017-08-18 04:00] VITALS: BP 145/65; PULSE 63; RESP 16; TEMP 97.6; O2SAT 96
--- NOTE | 2017-08-18 06:51 | HHI.DS ---
Discharge Summary Admission Date Aug 12, 2017 at 18:34 Discharge Date: Aug 18, 2017 Admitting Diagnosis acute kidney injury, urosepsis, AMS, head injury Brief History 81-year-old male the presents to the ED for evaluation of fall as well as altered mental status sent from [facility]. He was found to have creatinine 4.0. He is being teated for UTI with Bactrim. He has PMH of HTN, HLD, Copd, HF , CKD, Anemia. Admitted for MARQUITA/CKD, renal consult. CBC/BMP: 08/16/17 0630 08/16/17 0630 Significant Findings Laboratory Tests Test 08/15/17 12:48 08/15/17 17:29 08/16/17 06:30 Red Blood Count 3.27 MIL/MM3 (4.50-5.90) 3.39 MIL/MM3 (4.50-5.90) Hemoglobin 10.0 GM/DL (13.0-17.0) 10.2 GM/DL (13.0-17.0) Hematocrit 30.4 % (39.0-51.0) 31.3 % (39.0-51.0) Platelet Count 116 TH/MM3 (150-450) 110 TH/MM3 (150-450) Blood Urea Nitrogen 40 MG/DL (7-18) 40 MG/DL (7-18) Creatinine 1.93 MG/DL (0.60-1.30) 1.56 MG/DL (0.60-1.30) Random Glucose 157 MG/DL (74-106) Albumin 2.9 GM/DL (3.4-5.0) Calcium Level 8.3 MG/DL (8.5-10.1) Estimat Glomerular Filtration Rate 34 ML/MIN (>89) 43 ML/MIN (>89) Urine Turbidity CLOUDY (CLEAR) Urine Protein 100 mg/dL (NEG-TRACE) Urine Occult Blood MOD (NEG) Urine Urobilinogen 2.0 mg/dL (LESS THAN 2) Urine Leukocyte Esterase MOD (NEG) Urine WBC 21 /hpf (0-5) Urine Bacteria OCC /hpf (NONE) Urine Mucus FEW /lpf (OCC) Monocytes (%) (Auto) 8.4 % (0.0-8.0) Imaging Last Impressions Renal Ultrasound 08/14/17 0000 Signed Impressions: CONCLUSION: 1. Atrophic echogenic kidneys characteristic of medical renal disease. Nonobst ructing renal calcifications. Small bilateral renal cysts Head CT 08/12/171703 Signed Impressions: CONCLUSION: 1. No acute intracranial abnormality identified. The exam does demonstrate mil d cortical atrophy and microvascular ischemic demyelinative change.. Chest X-Ray 08/12/171703 Signed Impressions: CONCLUSION: Suspected minimal atelectasis and possible minimal effusions. Cervical Spine CT 08/12/17 0000 Signed Impressions: CONCLUSION: 1. Study is degraded by motion artifact. 2. No gross fracture or dislocation. 3. Degenerative changes. PE at Discharge GENERAL: This is a well-nourished, well-developed patient, in no apparent distress. SKIN: No rashes, ecchymoses or lesions. Cool and dry. HEAD: Atraumatic. Normocephalic. No temporal or scalp tenderness. EYES: Pupils equal round and reactive. Extraocular motions intact. No scleral icterus. No injection or drainage. ENT: Nose without bleeding, purulent drainage or septal hematoma. Throat without erythema, tonsillar hypertrophy or exudate. Uvula midline. Airway patent. NECK: Trachea midline. Supple, nontender, no meningeal signs. CARDIOVASCULAR: Regular rate and rhythm without murmurs, gallops, or rubs. RESPIRATORY: Clear to auscultation. Breath sounds equal bilateral. O2 2l. GASTROINTESTINAL: Abdomen soft, non-tender, nondistended, + BS MUSCULOSKELETAL: Extremities without clubbing, cyanosis, or edema. No joint tenderness, effusion, or edema noted. No calf tenderness. Negative Homans sign bilaterally. NEUROLOGICAL: Awake and alert. Hospital Course Admitted with MARQUITA/Ckd, treated Nephrology consulted with IVF, Bactrim and Lisinopril held. Kidney functions returned to baseline. Infectious Disease consulted for UTI with culture growing 3 isolates. IV antibiotics Invanz, Trimox and Fluconazole for lori x 5 days. Pt Condition on Discharge: Good Discharge Disposition: Discharge to SNF Discharge Instructions DIET: Follow Instructions for: Renal Failure Diet Activities you can perform: Regular-No Restrictions New Medications: Fluconazole (Diflucan) 100 Mg Tab 100 MG PO DAILY for Infection for 5 Days, #5 TAB 0 Refills Continued Medications: Atorvastatin (Lipitor) 20 Mg Tab 20 MG PO HS for Cholesterol Management, #30 TAB 0 Refills Baclofen (Baclofen) 10 Mg Tab 10 MG PO Q8HR, TAB 0 Refills Carvedilol (Coreg) 3.125 Mg Tab 3.125 MG PO BID for Blood Pressure Management, #60 TAB 0 Refills Citalopram (Citalopram) 20 Mg Tab 20 MG PO DAILY for Control Depression, #30 TAB 0 Refills Clopidogrel (Plavix) 75 Mg Tab 75 MG PO DAILY for Blood Clot Prevention, #30 TAB 0 Refills Clotrimazole Topical (Lotrimin AF Topical) 1% Cream 1 APPLIC TOPICAL BID for Fungal Infection for 10 Days, GM 0 Refills Hydrocodone/Acetaminophen (Hydrocodone-Acetamin 5-325 mg) 5 Mg-325 Mg Tablet 1 TAB PO Q8HR PRN for PAIN SCALE 4 TO 10, #15 TAB Magnesium Hydroxide Liq (Milk of Magnesia Liq) 400 Mg/5 Ml Susp 30 ML PO DAILY PRN for INDIGESTION OR UPSET STOMACH, #1 BOTTLE 0 Refills Metoprolol Tartrate (Lopressor) 50 Mg Tab 25 MG PO BID, #30 TAB 0 Refills Omeprazole (Omeprazole) 40 Mg Cap 40 MG PO DAILY, #30 CAP 0 Refills Tamsulosin (Tamsulosin) 0.4 Mg Cap 0.4 MG PO HS for Manage Prostate Problems, #30 CAP 0 Refills [Albuterol-Ipratropium Neb] () 1 AMPULE NEBU 1 AMPULE NEB Q6HR WHILE AWAKE NEB for copd, #90 [Nystatin Powder] () 15 APPLIC/15 GM POWD 1 APPLIC TOPICAL Q12HR for yeast, #60 Discontinued Medications: Levofloxacin (Levofloxacin) 500 Mg Tablet 500 MG PO DAILY for Infection, #5 TAB 0 Refills Lisinopril (Lisinopril) 10 Mg Tab 10 MG PO DAILY, #30 TAB 0 Refills Sulfamethoxazole-Trimethoprim (Sulfamethoxazole-Trimethoprim) 800-160 Mg Tab 1 TAB PO BID for Infection, TAB 0 Refills Additional Information CBC, BMP in am Oxygen to keep sat's >92% Etta Branham Aug 18, 2017 06:51
[2017-08-18 08:00] VITALS: BP 159/68; PULSE 61; RESP 18; TEMP 97.7; O2SAT 100
[2017-08-18] MEDS: SODIUM CHLORIDE 0.9% FLUSH 10 ML FLUSH IV FLUSH SCH (09:00)
[2017-08-18 09:10] VITALS: O2SAT 98
[2017-08-18] MEDS: METOPROLOL TARTRATE 25 MG TAB PO SCH (09:15)
[2017-08-18] MEDS: PANTOPRAZOLE SOD 40 MG DELAYED RELEASE TAB PO SCH (09:15)
[2017-08-18] MEDS: CLOPIDOGREL 75 MG TAB PO SCH (09:15)
[2017-08-18] MEDS: BACLOFEN 10 MG TAB PO SCH (09:16)
[2017-08-18] MEDS: CITALOPRAM HYDROBROMIDE 20 MG TAB PO SCH (09:16)
[2017-08-18] MEDS: FLUCONAZOLE 100 MG TAB PO SCH (09:16)
[2017-08-18] MEDS: CARVEDILOL 3.125 MG TAB PO SCH (09:16)
[2017-08-18] MEDS: NYSTATIN 100,000 U/GM PWD 15 GM BTL TOPICAL SCH (09:21)
[2017-08-18] MEDS: CLOTRIMAZOLE 1% CREAM 15 GM TOPICAL SCH (09:21)
--- NOTE | 2017-08-18 09:26 | HHI.NPPN ---
Subjective Additional Remarks No acute complaints. Plan for discharge today. (Sophy Dobbins) Review of Systems Respiratory Respiratory Remarks Denies SOB (Sophy Dobbins) Cardiovascular Cardiac Remarks Denies CP (Sophy Dobbins) Gastrointestinal GI Remarks Denies abdominal pain (Sophy Dobbins) Objective Data Data Vital Signs Date Time Temp Pulse Resp B/P (MAP) Pulse Ox O2 Delivery O2 Flow Rate FiO2 08/18/17 09:10 98 Nasal Cannula 3.00 08/18/17 08:00 97.7 61 18 159/68 (98) 100 08/18/17 04:00 97.6 63 16 145/65 (91) 96 08/18/17 00:00 97.7 63 16 137/62 (87) 92 08/17/17 20:35 99 Nasal Cannula 3.00 08/17/17 20:00 98.0 62 16 172/69 (103) 96 08/17/17 16:00 98.2 67 18 161/74 (103) 98 08/17/17 16:00 97.8 58 18 170/72 (104) 99 08/17/17 12:00 97.9 57 18 150/65 (93) 100 (Sophy Dobbins) -: 08/16/17 0630 08/16/17 0630 Physical Exam General Appearance: No Acute Distress (Sophy Dobbins) Eyes Eye Exam: Pupils Equal (Sophy Dobbins) Throat Throat Exam: Oral Mucosa [place] & Moist (Sophy Dobbins) Neck Neck Exam: Neck Supple (Sophy Dobbins) Pulmonary Resp Exam: Diminished Breath Sounds (Sophy Dobbins) Cardiology CV Exam: Regular, Normal Sinus Rhythm (Sophy Dobbins) Gastrointestinal/Abdomen GI Exam: Soft, Non-Tender (Sophy Dobbins) Musculoskeletal MS Exam: Joints Intact (Sophy Dobbins) Integumentary Skin Exam: Warm, Dry, Intact (Sophy Dobbins) Extremeties Extremities Exam: No Edema (Sophy Dobbins) Neurologic Neuro Exam: Alert, Awake (Sophy Dobbins) Assessment/Plan Problem List: (1) MARQUITA (acute kidney injury) ICD Codes: N17.9 - Acute kidney failure, unspecified Status: Acute Plan: Acute kidney injury with a creatinine of 4.01 on admission MARQUITA possible prerenal vs ATN from infection and possible poor intake. Has chronic kidney disease with baseline creatinine of 1.4 to 1.6 in February of 2017 possible related to hypertension vs diabetes Renal ultrasound with echogenic kidneys suggestive of CKD. Plan Renal function has improved to baseline Encourage PO intake Continue to monitor electrolytes and UOP Avoid nephrotoxic agents. Plans for discharge (2) Altered mental status ICD Codes: R41.82 - Altered mental status, unspecified Status: Resolved Plan: Improving (3) UTI (urinary tract infection) ICD Codes: N39.0 - Urinary tract infection, site not specified Status: Acute Plan: Continue antibiotics per ID recommendation Renal dose antibiotics (Sophy Dobbins) Problem List: (1) MARQUITA (acute kidney injury) ICD Codes: N17.9 - Acute kidney failure, unspecified Status: Acute Plan: Acute kidney injury with a creatinine of 4.01 on admission MARQUITA possible prerenal vs ATN from infection and possible poor intake. Has chronic kidney disease with baseline creatinine of 1.4 to 1.6 in February of 2017 possible related to hypertension vs diabetes Renal ultrasound with echogenic kidneys suggestive of CKD. Plan Renal function has improved to baseline Encourage PO intake Continue to monitor electrolytes and UOP Avoid nephrotoxic agents. Plans for discharge. Patient has chronic kidney disease, Creatinine is stable. Now for discharge. (2) Altered mental status ICD Codes: R41.82 - Altered mental status, unspecified Status: Resolved Plan: Improving (3) UTI (urinary tract infection) ICD Codes: N39.0 - Urinary tract infection, site not specified Status: Acute Plan: Continue antibiotics per ID recommendation Renal dose antibiotics (Sterling Metcalf MD) Problem Qualifiers (1) Altered mental status: Qualified Codes: R41.82 - Altered mental status, unspecified (2) UTI (urinary tract infection): Qualified Codes: N30.00 - Acute cystitis without hematuria Sophy Dobbins Aug 18, 2017 09:26 Sterling Metcalf MD Aug 18, 2017 21:25
== END 2017-08-18 11:49 | DRG 682 ==
LOC: NEPE 16:53 → NEDA 18:34 → N07B 21:23
PROVIDERS: ADMIT Family Medicine; ATTEND Family Medicine
DX: N17.9 Acute kidney failure, unspecified (principal); G93.41 Metabolic encephalopathy; E11.22 Type 2 diabetes mellitus with diabetic chronic kidney disease; E11.51 Type 2 diabetes mellitus with diabetic peripheral angiopathy without gangrene; I50.9 Heart failure, unspecified; I13.0 Hypertensive heart and chronic kidney disease with heart failure and stage 1 through stage 4 chronic kidney disease, or unspecified chronic kidney disease; D69.6 Thrombocytopenia, unspecified; N30.00 Acute cystitis without hematuria; N28.1 Cyst of kidney, acquired; S09.90XA Unspecified injury of head, initial encounter; E78.5 Hyperlipidemia, unspecified; J44.9 Chronic obstructive pulmonary disease, unspecified; N18.2 Chronic kidney disease, stage 2 (mild); N40.0 Benign prostatic hyperplasia without lower urinary tract symptoms; F41.9 Anxiety disorder, unspecified; R11.0 Nausea; B96.5 Pseudomonas (aeruginosa) (mallei) (pseudomallei) as the cause of diseases classified elsewhere; B95.2 Enterococcus as the cause of diseases classified elsewhere; W19.XXXA Unspecified fall, initial encounter; D64.9 Anemia, unspecified; E66.9 Obesity, unspecified; Z68.30 Body mass index [BMI] 30.0-30.9, adult; Z79.02 Long term (current) use of antithrombotics/antiplatelets; Z95.820 Peripheral vascular angioplasty status with implants and grafts
CPT/HCPCS: 70450; 71045; 72125; 76775; 80048; 80053; 81001; 83605; 85025; 85027; 85610; 85730; 87040; 87077; 87086; 87186; 94618; 94640; 94664; J0696; J1335; J7040